=== PATIENT | male | born 1985 ===

== ENCOUNTER 2020-07-22 18:50 | Emergency (ER) | payer MEDICAID, SELFPAY ==
[2020-07-22 18:55] VITALS: BP 194/96; PULSE 93; RESP 18; TEMP 37; O2SAT 98; BMI 38.9
--- NOTE | 2020-07-22 22:12 | ED_ITS ---
HPI - Skin/Abscess/Foreign Bdy General Chief complaint: Skin/Abscess/Foreign Body Stated complaint: abscess Time Seen by Provider: 07/22/20 21:46 Source: patient Mode of arrival: ambulatory Limitations: no limitations History of Present Illness HPI narrative: patient complaining of pain in the right axillary area for last 1 year for last few days getting worse with slight area of redness no fever no pus discharge Related Data Previous Rx's Medication Instructions Recorded doxycycline hyclate 100 mg PO BID #20 cap 07/22/20 Allergies Allergy/AdvReac Type Severity Reaction Status Date / Time SEAFOOD Allergy Severe SWELLING Uncoded 07/03/20 18:46 sea food Allergy Unknown sweling Uncoded 06/17/20 00:00 Review of Systems Review of Systems: REVIEW OF SYSTEMS: Pertinent positives and negatives are stated above in the history. GEN: no fevers, chills, fatigue HEENT: no nasal congestion, sore throat, ear pain NEURO: no headache, dizziness, focal weakness PULM: no cough, shortness of breath CV: no chest pain, palpitations, LE edema ABD: no abdominal pain, nausea, vomiting, diarrhea : no dysuria, urgency, frequency SKIN: as above ROS otherwise negative x 10 PMFSH Past Medical History Medical History Hypertension Social History Social History Alcohol intake: current Alcohol intake frequency: holidays/special occasions only Alcohol type: beer and wine Smoked in Last 30 Days: No Use of substances other than those prescribed or required for medical reasons: No Any prior treatment program specific to substance use: No Advance Directives: No Advance Directives Information Provided: No Physical Exam Vital Signs and I&O and Narrative: Vital Signs and I&O: Vital Signs Temp 98.6 F 07/22/20 18:55 Pulse 93 07/22/20 18:55 Resp 18 07/22/20 18:55 BP 194/96 H 07/22/20 18:55 Pulse Ox 98 07/22/20 18:55 Intake & Output 07/22/20 07/22/20 07/23/20 06:59 18:59 06:59 Weight 99.79 kg Body Mass Index 38.9 Const: General: cooperative Orientation/consciousness: oriented to person, oriented to place and oriented to time Limitations: no limitations Eyes: General: appearance normal, both eyes and all related structures Resp: Effort & Inspection: normal respiratory effort Auscultation: clear to auscultation bilaterally Cardio: Rate: regular rate Rhythm: regular rhythm Heart sounds: S1 normal heart sound present and S2 normal heart sound present GI: Inspection: Yes normal to inspection Palpation (GI): Soft to palpation and nontender Skin: Other: slight induration with erythema of the right axillary area no fluctuant mass palpable no pus discharge Neuro: General: oriented to person, oriented to place and oriented to time Course Course Course Narrative: bedside ultrasound of right axilla was negative for any fluid collection. Will give him a course of doxycycline for hiderinitis suppurativa Discharge Plan Discharge Clinical Impression: Hidradenitis suppurativa of right axilla Patient Disposition: Home, Self-Care Instructions: Hidradenitis Suppurativa (ED) Additional Instructions: take antibiotic as prescribed and follow with primary care doctor, warm compresses as advised bakari antibi?ticos seg?n lo prescrito y seguir con el m?dico de atenci?n primaria, compresas tibias seg?n lo recomendado Prescriptions: New doxycycline hyclate 100 mg capsule 100 mg PO BID Qty: 20 RF: 0 Interventions: ED Discharge Assessment Last Done: 07/22/20 23:09 Discharge Date/Time: 07/22/20 23:12 Print Language: Malawian
[2020-07-22] MEDS: Ibuprofen 600 MG TABLET PO (22:59)
--- NOTE | 2020-07-22 23:04 | PC.NURSE ---
DR. CASANOVA AT BEDSIDE TO PERFORM US TO US AT BEDSIDE TO UNDERARM. STAFF INTERPERATOR TRANSLATING AT BEDSIDE RESULTS TO PT.
== END 2020-07-22 23:12 | disposition home or self-care (01) ==
PROVIDERS: Emergency Provider Internal Medicine; PCP Internal Medicine
DX: L73.2 Hidradenitis suppurativa (principal); M79.621 Pain in right upper arm
CPT/HCPCS: 96374; 99284

== ENCOUNTER 2020-09-15 09:02 | Outpatient (REF) | payer MEDICAID, SELFPAY | END 2020-09-15 09:03 | disposition home or self-care (01) | LOC: HO.LAB 09:02 | PROVIDERS: Visit Provider Internal Medicine | DX: Z20.828 Contact with and (suspected) exposure to other viral communicable diseases (principal) | CPT/HCPCS: C9803; U0003 ==

== ENCOUNTER 2020-09-17 11:12 | Outpatient (REF) | payer MEDICAID, SELFPAY | END 2020-09-17 11:13 | disposition home or self-care (01) | LOC: HO.LAB 11:12 | PROVIDERS: Visit Provider Internal Medicine | DX: Z20.828 Contact with and (suspected) exposure to other viral communicable diseases (principal) | CPT/HCPCS: C9803; U0003 ==

== ENCOUNTER 2021-05-17 02:28 | Emergency (ER) | payer MEDICAID, SELFPAY ==
--- NOTE | ~2021-05-17 | XR_ITS ---
EXAMINATION: XR CHEST CLINICAL INFORMATION: Cough COMPARISON: 08.17.2019 TECHNIQUE: 2 views of the chest were obtained. FINDINGS: Normal symmetric lung volumes. No parenchymal consolidation. No pleural effusion. No pneumothorax. Cardiomediastinal silhouette and pulmonary vascularity are within normal limits. No acute osseous abnormalities. XR/XR chest 2V IMPRESSION: Unremarkable examination.
[2021-05-17 02:31] VITALS: BP 139/85; PULSE 103; RESP 18; TEMP 36.7; O2SAT 95; BMI 44.9
[2021-05-17 02:50] LABS: MANUAL DIFF FLAG NO
[2021-05-17 02:51] LABS: Basophils Percent Auto 0.1 % (0-2); Eosinophils Absolute Auto 0.2 X10*3/uL (0.0-0.4); Eosinophils Percent Auto 2.6 % (0-4); Hematocrit 43.1 % (42-52); Hemoglobin 14.7 g/dl (14.0-18.0); Imm Gran Abs Auto 0.04 X10*3/uL (0.00-0.03); Imm Gran Pct Auto 0.5 % (0.0-0.4); Lymphocytes Absolute Auto 2.4 X10*3/uL (1.2-4.9); Lymphocytes Percent Auto 30.2 % (20-40); Mean Corpuscular HGB Conc 34.1 g/dl (31.0-36.0); Mean Corpuscular Hemoglobin 31.1 pg (27.0-33.0); Mean Corpuscular Volume 91.1 fL (80-98); Mean Platelet Volume 9.9 fL (9.4-12.4); Monocytes Absolute Auto 0.8 X10*3/uL (0.1-1.2); Monocytes Percent Auto 10.1 % (2-11); Neutrophils Absolute Auto 4.4 X10*3/uL (2.0-8.3); Neutrophils Percent Auto 56.5 % (45-73); Platelet Count 164 X10*3/uL (160-400); Red Blood Count 4.73 X10*6/uL (4.60-5.80); Red Cell Distribution Width 13.4 % (11.0-16.0); White Blood Count 7.8 X10*3/uL (4.8-10.8)
[2021-05-17 03:13] LABS: Alanine Aminotransferase 42 U/L (0-40); Albumin Level 4.1 g/dL (3.5-5.0); Alkaline Phosphatase 83 U/L (39-117); Anion Gap 13 (12-20); Aspartate Amino Transferase 25 U/L (5-37); Bilirubin Total 0.4 mg/dL (0.0-1.0); Blood Urea Nitrogen 12 mg/dL (9-16); Calcium 9.1 mg/dL (8.4-10.2); Carbon Dioxide 26 mmol/L (22-29); Chloride 105 mmol/L (96-108); Creatinine Clr Calc Pharmacy 131.8; Estimated Glomerular Filt Rate > 60; Glucose Random 141 mg/dL (60-115); Sodium 141 mmol/L (135-145); Total Protein 7.4 g/dL (6.5-8.0)
[2021-05-17 03:21] LABS: COVID-19 Test Negative (Negative)
--- NOTE | 2021-05-17 03:49 | PC.NURSE ---
at bedside for primary eval.
--- NOTE | 2021-05-17 03:52 | ED.URI ---
HPI - URI/Sore Throat General Chief Complaint: Upper Respiratory Symptoms Stated Complaint: cough Time Seen by Provider: 05/17/21 03:47 Source: patient Mode of arrival: ambulatory Limitations: no limitations History of Present Illness HPI Narrative: Patient comes to emergency room complaining of coughing for the last 3 days. Patient states he has been coughing so much that he sees specks of blood. Patient denies vomiting, no diarrhea, no fever or chills. Related Data Previous Rx's Medication Instructions Recorded doxycycline hyclate 100 mg capsule 100 mg PO BID #20 cap 07/22/20 azithromycin 250 mg tablet 250 mg PO DAILY 4 Days #4 tab 05/17/21 Allergies Allergy/AdvReac Type Severity Reaction Status Date / Time SEAFOOD Allergy Severe SWELLING Uncoded 07/03/20 18:46 sea food Allergy Unknown sweling Uncoded 06/17/20 00:00 Review of Systems Review of Systems: Constitutional : No Weight loss, No Fever, No Chills, No Night Sweats, No Fatigue, No Malaise ENT/Mouth : No Hearing loss, No Ear Pain, No Nasal Congestion, No Sinus Pain, No Hoarseness, No sore throat, No Rhinorrhea, No Swallowing Difficulty Eyes: No Eye Pain, No Swelling, No Redness, No Foreign Body, No Discharge, No Vision Changes Cardiovascular : No Chest Pain, No SOB, No Dyspnea on Exertion, No Orthopnea, No Edema, No Palpitations Respiratory : Dry cough with occasional specks of blood, No Sputum, No Wheezing, No Smoke Exposure, No Dyspnea Gastrointestinal : No Nausea, No Vomiting, No Diarrhea, No Constipation, No abdominal Pain, No Hematochezia, No Melena Genitourinary : no irregular bleeding, No Dysuria, No Urinary Frequency, No Hematuria, No Urinary Incontinence, No Urgency, No Flank Pain, No Urinary Flow Changes, No Hesitancy Musculoskeletal : No joint pain, No Myalgias, No Joint Swelling Skin : No Skin Lesions, No rash Neuro : No Weakness, No Numbness, No Paresthesias, No Loss of Consciousness, No Dizziness, No Headache Psych : No Anxiety/Panic, No Depression, No SI/HI/AH/VH, No Social Issues, Heme/Lymph: No Bruising, No Bleeding,No Lymphadenopathy Endocrine : No Polyuria, No Polydipsia, No Temperature Intolerance [facility] Past Medical History Medical History Hypertension Social History Social History Alcohol intake: current Alcohol intake frequency: holidays/special occasions only Alcohol type: beer and wine Advance Directives: No Advance Directives Information Provided: No Physical Exam Vital Signs: Vital Signs: Last Vital Signs Temp 98.1 F 05/17/21 02:31 Pulse 103 H 05/17/21 02:31 Resp 18 05/17/21 02:31 BP 139/85 05/17/21 02:31 Pulse Ox 95 05/17/21 02:31 Body Mass Index 44.9 Const: Other: Appearance: Alert. Oriented X3. No acute distress. Eyes: Pupils equal, round and reactive to light. ENT: Pharynx normal. Neck: Normal inspection. Neck supple. No lymph nodes noted. No crepitus CVS: Normal heart rate and rhythm. Pulses normal. Normal S1 and S2 Respiratory: No respiratory distress. Breath sounds normal. No Wheezing. No rales Abdomen: Soft and nontender. No rigidity. No distention. good BS x4 Skin: Skin warm and dry. Normal skin color. Normal skin turgor. Extremities: No lower extremity edema. No Lacerations. No Rash Neuro: Oriented X 3. No motor deficit. No sensory deficit. Moving all extermities. No slurred speech. Course Course Course Narrative: I discussed the x-rays and the labs with the patient, patient's potassium is on the lower side, it was repleted with oral potassium in the emergency room. Also, chest x-rays are unremarkable, patient likely having bronchitis. Given that he has being coughing specks of blood, will go ahead and treat him with antibiotic. MDM - URI/Sore Throat Lab Data Result diagrams: 05/17/21 02:43 05/17/21 02:43 Labs: Lab Results 05/17/21 05/17/21 05/17/21 Range/Units 02:43 02:43 02:59 WBC 7.8 (4.8-10.8) X10*3/uL RBC 4.73 (4.60-5.80) X10*6/uL Hgb 14.7 (14.0-18.0) g/dl Hct 43.1 (42-52) % MCV 91.1 (80-98) fL MCH 31.1 (27.0-33.0) pg MCHC 34.1 (31.0-36.0) g/dl RDW 13.4 (11.0-16.0) % Plt Count 164 (160-400) X10*3/uL MPV 9.9 (9.4-12.4) fL Immature Gran % (Auto) 0.5 H (0.0-0.4) % Neut % (Auto) 56.5 (45-73) % Lymph % (Auto) 30.2 (20-40) % Door % (Auto) 10.1 (2-11) % Eos % (Auto) 2.6 (0-4) % Baso % (Auto) 0.1 (0-2) % Lymph # (Auto) 2.4 (1.2-4.9) X10*3/uL Door # (Auto) 0.8 (0.1-1.2) X10*3/uL Eos # (Auto) 0.2 (0.0-0.4) X10*3/uL Baso # (Auto) 0.0 (0.0-0.2) X10*3/uL Abs Immat Gran (auto) 0.04 H (0.00-0.03) X10*3/uL Absolute Neuts (auto) 4.4 (2.0-8.3) X10*3/uL Absolute Nucleated RBC 0.000 (0.0-0.012) X10*3/uL Nucleated RBC % (auto) 0.0 (0.0-0.2) /100WBC Sodium 141 (135-145) mmol/L Potassium 3.0 L (3.3-5.1) mmol/L Chloride 105 (96-108) mmol/L Carbon Dioxide 26 (22-29) mmol/L Anion Gap 13 (12-20) BUN 12 (9-16) mg/dL Creatinine 0.95 (0.5-1.4) mg/dL Estim Creat Clear Calc 131.8 Estimated GFR > 60 Random Glucose 141 H (60-115) mg/dL Calcium 9.1 (8.4-10.2) mg/dL Total Bilirubin 0.4 (0.0-1.0) mg/dL AST 25 (5-37) U/L ALT 42 H (0-40) U/L Alkaline Phosphatase 83 (39-117) U/L Total Protein 7.4 (6.5-8.0) g/dL Albumin 4.1 (3.5-5.0) g/dL COVID-19 (ADRIAN) Negative (Negative) COVID-19 Clin Com See Note Imaging Data Chest x-ray: Radiologist's impression: Normal symmetric lung volumes. No parenchymal consolidation. No pleural effusion. No pneumothorax.? Cardiomediastinal silhouette and pulmonary vascularity are within normal limits. No acute osseous abnormalities. XR/XR chest 2V IMPRESSION: Unremarkable examination. Discharge Plan Discharge Clinical Impression: Bronchitis, Acute hypokalemia Patient Disposition: Home, Self-Care Instructions: Acute Bronchitis (ED) Additional Instructions: Please follow-up with your primary care physician tomorrow. If you have any worsening or new symptoms, please return to the emergency room or call 911 Prescriptions: New azithromycin 250 mg tablet 250 mg PO DAILY 4 Days Qty: 4 RF: 0 No Action doxycycline hyclate 100 mg capsule 100 mg PO BID Qty: 20 RF: 0
--- NOTE | 2021-05-17 03:55 | PC.NURSE ---
Medicated per MAR.
[2021-05-17] MEDS: Azithromycin 500 MG TABLET PO (03:59)
[2021-05-17] MEDS: Potassium Chloride Packet 20 MEQ PACKET 40 MEQ PO (03:59)
== END 2021-05-17 04:07 | disposition home or self-care (01) ==
PROVIDERS: Emergency Provider Emergency Medicine
DX: J40 Bronchitis, not specified as acute or chronic (principal); R05 Cough; E87.6 Hypokalemia; I10 Essential (primary) hypertension; Z20.822 Contact with and (suspected) exposure to COVID-19; Z79.899 Other long term (current) drug therapy
CPT/HCPCS: 36415; 71046; 80053; 85025; 87635; 99283

== ENCOUNTER 2021-06-18 08:47 | Outpatient (REF) | payer OTHER, SELFPAY ==
[2021-06-18 09:05] LABS: MANUAL DIFF FLAG NO
[2021-06-18 09:12] LABS: Basophils Percent Auto 0.2 % (0-2); Eosinophils Absolute Auto 0.2 X10*3/uL (0.0-0.4); Eosinophils Percent Auto 1.6 % (0-4); Hematocrit 42.9 % (42-52); Hemoglobin 14.8 g/dl (14.0-18.0); Imm Gran Abs Auto 0.05 X10*3/uL (0.00-0.03); Imm Gran Pct Auto 0.5 % (0.0-0.4); Lymphocytes Absolute Auto 2.5 X10*3/uL (1.2-4.9); Mean Corpuscular HGB Conc 34.5 g/dl (31.0-36.0); Mean Corpuscular Hemoglobin 31.4 pg (27.0-33.0); Mean Corpuscular Volume 91.1 fL (80-98); Mean Platelet Volume 9.5 fL (9.4-12.4); Monocytes Absolute Auto 0.8 X10*3/uL (0.1-1.2); Neutrophils Absolute Auto 5.9 X10*3/uL (2.0-8.3); Neutrophils Percent Auto 62.7 % (45-73); Platelet Count 179 X10*3/uL (160-400); Red Blood Count 4.71 X10*6/uL (4.60-5.80); Red Cell Distribution Width 13.5 % (11.0-16.0); White Blood Count 9.4 X10*3/uL (4.8-10.8)
[2021-06-18 09:56] LABS: Alanine Aminotransferase 41 U/L (0-40); Alkaline Phosphatase 83 U/L (39-117); Anion Gap 9 (12-20); Aspartate Amino Transferase 22 U/L (5-37); Calcium 9.3 mg/dL (8.4-10.2); Carbon Dioxide 29 mmol/L (22-29); Chloride 106 mmol/L (96-108); Cholesterol 192 mg/dL; Estimated Glomerular Filt Rate > 60; Glucose Fasting 121 mg/dL (60-99); HDL Cholesterol 27 mg/dL; LDL Cholesterol Calculated 128 mg/dl; Potassium 3.3 mmol/L (3.3-5.1); Sodium 141 mmol/L (135-145); Total Protein 7.2 g/dL (6.5-8.0); Triglycerides 188 mg/dL
[2021-06-18 10:04] LABS: Thyroid Stimulating Hormone 1.48 uIU/mL (0.32-4.0)
[2021-06-18 10:23] LABS: Blood Urea Nitrogen 7 mg/dL (9-16)
== END 2021-06-18 08:48 | disposition home or self-care (01) ==
LOC: HO.LAB 08:47
PROVIDERS: PCP Internal Medicine; Visit Provider Internal Medicine
DX: D64.9 Anemia, unspecified (principal); E66.9 Obesity, unspecified; E78.5 Hyperlipidemia, unspecified
CPT/HCPCS: 36415; 80053; 80061; 84443; 85025

== ENCOUNTER 2021-07-26 03:32 | Emergency (ER) | payer OTHER, SELFPAY ==
[2021-07-26 03:34] VITALS: BP 160/102; PULSE 75; RESP 16; TEMP 36.6; O2SAT 95; BMI 46.0
--- NOTE | 2021-07-26 03:50 | ED_ITS ---
HPI - Extremity Injury (Lower) General Chief Complaint: Extremity Injury, Lower Stated Complaint: side pain Time Seen by Provider: 07/26/21 03:45 Source: patient Mode of arrival: ambulatory Limitations: no limitations History of Present Illness HPI Narrative: Patient comes emergency room complaining of right-sided hip pain that has been there for 5-6 days. Patient states the pain is very mild, denies fever or chills. Denies any injuries. Related Data Previous Rx's Medication Instructions Recorded ibuprofen 600 mg tablet 600 mg PO Q6H PRN #14 tab 07/26/21 Allergies Allergy/AdvReac Type Severity Reaction Status Date / Time seafood Allergy Intermediate Rash Verified 07/26/21 03:34 Review of Systems Review of Systems: Constitutional : No Weight loss, No Fever, No Chills, No Night Sweats, No Fatigue, No Malaise ENT/Mouth : No Hearing loss, No Ear Pain, No Nasal Congestion, No Sinus Pain, No Hoarseness, No sore throat, No Rhinorrhea, No Swallowing Difficulty Eyes: No Eye Pain, No Swelling, No Redness, No Foreign Body, No Discharge, No Vision Changes Cardiovascular : No Chest Pain, No SOB, No Dyspnea on Exertion, No Orthopnea, No Edema, No Palpitations Respiratory : No Cough, No Sputum, No Wheezing, No Smoke Exposure, No Dyspnea Gastrointestinal : No Nausea, No Vomiting, No Diarrhea, No Constipation, No abdominal Pain, No Hematochezia, No Melena Genitourinary : no irregular bleeding, No Dysuria, No Urinary Frequency, No Hematuria, No Urinary Incontinence, No Urgency, No Flank Pain, No Urinary Flow Changes, No Hesitancy Musculoskeletal : Mild right hip pain, No Myalgias, No Joint Swelling Skin : No Skin Lesions, No rash Neuro : No Weakness, No Numbness, No Paresthesias, No Loss of Consciousness, No Dizziness, No Headache Psych : No Anxiety/Panic, No Depression, No SI/HI/AH/VH, No Social Issues, Heme/Lymph: No Bruising, No Bleeding,No Lymphadenopathy Endocrine : No Polyuria, No Polydipsia, No Temperature Intolerance [facility] Past Medical History Medical History Hypertension Impaired glucose tolerance Mixed hyperlipidemia Obesity (BMI 35.0-39.9 without comorbidity) Social History Social History Alcohol intake: current Alcohol intake frequency: holidays/special occasions only Alcohol type: beer and wine Patient Tobacco Use Status: Never used Tobacco e-Cigarette/Vaping Use: Never Used Second Hand Smoke Exposure: No Advance Directives: No Advance Directives Information Provided: Yes Physical Exam Vital Signs: Vital Signs: Last Vital Signs Temp 97.9 F 07/26/21 03:34 Pulse 75 07/26/21 03:34 Resp 16 07/26/21 03:34 BP 160/102 H 07/26/21 03:34 Pulse Ox 95 07/26/21 03:34 Body Mass Index 46.0 Const: Other: Appearance: Alert. Oriented X3. No acute distress. Eyes: Pupils equal, round and reactive to light. ENT: Pharynx normal. Neck: Normal inspection. Neck supple. No lymph nodes noted. No crepitus CVS: Normal heart rate and rhythm. Pulses normal. Normal S1 and S2 Respiratory: No respiratory distress. Breath sounds normal. No Wheezing. No rales Abdomen: Soft and nontender. No rigidity. No distention. No palpable inguinal hernia Skin: Skin warm and dry. Normal skin color. Normal skin turgor. Extremities: No lower extremity edema. Patient is able to flex and extend the hip with normal range of motion and no pain, the hip has normal appearance, normal range of motion, no erythema, no additional warmth, no femoral hernia, no pain over the IT band Neuro: Oriented X 3. No motor deficit. No sensory deficit. Moving all extermities. No slurred speech. Course Course Course Narrative: Patient's physical exam is relatively normal. Patient reports mild discomfort when bearing weight on his right hip. Septic joint is not suspected. Patient likely has mild bursitis. Patient has not had any medication yet for pain. Discharge Plan Discharge Clinical Impression: Bursitis of hip, right Qualifiers: Hip bursitis location: unspecified Qualified Code(s): M70.71 - Other bursitis of hip, right hip Patient Disposition: Home, Self-Care Instructions: Hip Bursitis (ED) Additional Instructions: Please follow-up with your primary care physician tomorrow. If you have any worsening or new symptoms, please return to the emergency room or call 911 Prescriptions: New ibuprofen 600 mg tablet 600 mg PO Q6H PRN (Reason: pain) Qty: 14 RF: 0
[2021-07-26] MEDS: Ibuprofen 600 MG TABLET PO (03:57)
== END 2021-07-26 04:02 | disposition home or self-care (01) ==
PROVIDERS: Emergency Provider Emergency Medicine; PCP Internal Medicine
DX: M70.71 Other bursitis of hip, right hip (principal); I10 Essential (primary) hypertension
CPT/HCPCS: 99283

== ENCOUNTER 2021-08-16 18:17 | Emergency (ER) | payer OTHER, SELFPAY ==
--- NOTE | ~2021-08-16 | XR_ITS ---
EXAMINATION: XR CHEST CLINICAL INFORMATION: Shortness of breath. COMPARISON: Chest radiograph dated 05/17/2021. TECHNIQUE: Frontal view of the chest was obtained. FINDINGS: The lungs are clear. The cardiomediastinal silhouette is normal in size. There is no pleural effusion or pneumothorax. No acute osseous abnormality. XR/XR chest 1V IMPRESSION: No acute cardiopulmonary findings.
[2021-08-16 18:34] VITALS: BP 157/96; PULSE 90; RESP 18; TEMP 36.7; O2SAT 99; BMI 46.0
== END 2021-08-16 21:45 | disposition left against medical advice (07) ==
LOC: HO.ED 21:36
PROVIDERS: Emergency Provider Emergency Medicine; PCP Internal Medicine
DX: R51.9 Headache, unspecified (principal); R07.9 Chest pain, unspecified; E66.9 Obesity, unspecified; I10 Essential (primary) hypertension; R78.2 Finding of cocaine in blood; G47.33 Obstructive sleep apnea (adult) (pediatric)
CPT/HCPCS: 71045; 99281; 99282; 99283

== ENCOUNTER 2021-08-31 11:42 | Emergency (ER) | payer OTHER, SELFPAY ==
--- NOTE | ~2021-08-31 | XR_ITS ---
EXAMINATION: XR FOOT, LEFT CLINICAL INFORMATION: Left great toe injury COMPARISON: None TECHNIQUE: AP, lateral, and oblique views of the left foot. FINDINGS: The bones and soft tissues are normal. No fracture. Alignment is anatomic. Joint spaces are maintained. XR/XR foot LT 2V IMPRESSION: Normal left foot.
[2021-08-31 12:14] VITALS: BP 180/99; PULSE 90; RESP 18; TEMP 36.8; O2SAT 94; BMI 40.7
--- NOTE | 2021-08-31 14:10 | ED.LOWEXIN ---
HPI - Extremity Injury (Lower) General Chief Complaint: Extremity Injury, Lower Stated Complaint: lt foot pain, fall Time Seen by Provider: 08/31/21 12:47 Source: patient Mode of arrival: ambulatory History of Present Illness HPI Narrative: 36-year-old male with a PMHx HTN, HLD, KUNAL, obesity, presenting to the ED complaining of left great toe pain/injury s/p mechanical trip and fall down 3 flights of stairs last night. Denies head trauma, LOC, injury to the area. Denies symptoms prior to fall. Denies numbness, tingling, weakness, headache, CP/SOB complaint: foot injury and fall Related Data Previous Rx's Medication Instructions Recorded ibuprofen 600 mg tablet 600 mg PO Q6H PRN #14 tab 07/26/21 lisinopril 10 mg tablet 10 mg PO DAILY 90 Days #90 tab 07/29/21 bacitracin 500 unit/gram topical 1 appl TOPICAL BID #30 g 08/31/21 ointment Allergies Allergy/AdvReac Type Severity Reaction Status Date / Time seafood Allergy Intermediate Rash Verified 08/31/21 12:14 Review of Systems Review of Systems: Constitutional: No Fever, No Chills ENT/Mouth: No Ear Pain, No Nasal Congestion, No sore throat Cardiovascular: No Chest Pain, No SOB Respiratory: No Cough, No Sputum, No Wheezing Gastrointestinal: No Nausea, No Vomiting, No Diarrhea, No Constipation, No Abdominal pain Genitourinary:, No Dysuria, No Urinary Incontinence, No Urgency, No Flank Pain Musculoskeletal: + joint pain, No Myalgias, No Joint Swelling Skin: + Skin Lesions, No rash Neuro: No Weakness, No Numbness, No Paresthesias, No HOOK, No LOC Yes all other systems are reviewed and are negative [facility] Past Medical History Attestation statement: The following information was validated with the patient. Medical History (Updated 08/31/21 @ 14:12 by FIDE Flores) Class 2 obesity with body mass index (BMI) of 39.0 to 39.9 in adult Hypertension Impaired glucose tolerance Mixed hyperlipidemia Obesity (BMI 35.0-39.9 without comorbidity) KUNAL (obstructive sleep apnea) Family History Family History Father Essential hypertension Mother No problems noted. Social History Social History Housing: Apartment Alcohol intake: current Alcohol intake frequency: holidays/special occasions only Alcohol type: beer and wine Patient Tobacco Use Status: Never used Tobacco e-Cigarette/Vaping Use: Never Used Second Hand Smoke Exposure: No Advance Directives: No Advance Directives Information Provided: No service: No Current occupational status: employed Current occupational exposures/hazards: No Physical Exam Vital Signs: Vital Signs: Last Vital Signs Temp 98.3 F 08/31/21 12:14 Pulse 90 08/31/21 12:14 Resp 18 08/31/21 12:14 BP 180/99 H 08/31/21 12:14 Pulse Ox 94 08/31/21 12:14 Body Mass Index 40.7 Const: General: cooperative, healthy appearing, no acute distress, well developed, alert, awake and Physically active Orientation/consciousness: patient oriented x3 Limitations: no limitations HENMT: Head: Yes normal to inspection, Yes normocephalic and Yes atraumatic Ears: hearing grossly normal bilaterally General nose exam: Normal external nose present Face and sinus: Yes normal facial exam Eyes: General: appearance normal, both eyes and all related structures EOM: EOMs intact bilaterally Neck: Neck: Yes normal visual inspection and Yes no meningeal signs Resp: Effort & Inspection: normal respiratory effort and no respiratory distress Auscultation: clear to auscultation bilaterally Cardio: Rate: regular rate Heart sounds: S1 normal heart sound present and S2 normal heart sound present Peripheral pulses: dorsalis pedis present Skin: Rashes: no rashes Wounds: no wounds Neuro: General: patient oriented x3 and no meningeal signs Gait exam (Neuro): Normal gait present Extrem: Other: Left great toe with mild tenderness to medial aspect. Popped callus/blister to plantar aspect of the great toe that is tender to palpation. No surrounding cellulitis, no fluctuance/induration, no drainage. Neurovascular intact. Sensation intact to light touch. Course Course Course Narrative: XR foot LT 2V IMPRESSION: Normal left foot. Results discussed. Patient is to follow-up with PCP as needed MDM - Extremity Injury (Lower) MDM Narrative Medical decision making narrative: 36-year-old male with a PMHx HTN, HLD, KUNAL, obesity, presenting to the ED complaining of left great toe pain/injury s/p mechanical trip and fall down 3 flights of stairs last night. On exam vital signs stable, NAD/nontoxic, physical exam as above, left great toe with mild tenderness and popped callus noted plantar aspect. No evidence of infection. Rule out fracture. Plan: X-rays Medical Records Attestation: I reviewed the patient's medical records. Lab Data Attestation: I reviewed the patient's lab results. Discharge Plan Discharge Clinical Impression: Blister Great toe pain Qualifiers: Laterality: left Qualified Code(s): M79.675 - Pain in left toe(s) Patient Disposition: Home, Self-Care Instructions: Arthralgia (ED) Additional Instructions: Your x-ray was unremarkable. Ice and elevate her foot Take Tylenol and ibuprofen Apply bacitracin to your popped blister If area begins look infected please return to the ED Please follow-up with her doctor Lopez radiograf?a no tuvo nada especial. Hielo y eleva lopez pie Tubac Tylenol e ibuprofeno Aplique bacitracina a lopez ampolla reventada Si el ?lorraine comienza a verse infectada, regrese al servicio de urgencias. Por favor, stacia un seguimiento con lopez m?dico. Prescriptions: New bacitracin 500 unit/gram ointment 1 appl topical BID Qty: 30 RF: 0 No Action ibuprofen 600 mg tablet 600 mg PO Q6H PRN (Reason: pain) Qty: 14 RF: 0 lisinopril 10 mg tablet 10 mg PO DAILY 90 Days Qty: 90 RF: 0 Referrals: Jazzmine Alvarado MD [Primary Care Provider] - 5 days Print Language: Macedonian
== END 2021-08-31 15:07 | disposition home or self-care (01) ==
PROVIDERS: Emergency Provider Emergency Medicine; PCP Internal Medicine
DX: M79.675 Pain in left toe(s) (principal); S90.822A Blister (nonthermal), left foot, initial encounter; W10.9XXA Fall (on) (from) unspecified stairs and steps, initial encounter; Y93.9 Activity, unspecified; Y92.9 Unspecified place or not applicable; Y99.9 Unspecified external cause status
CPT/HCPCS: 73620; 99283

== ENCOUNTER 2021-11-24 17:35 | Emergency (ER) | payer OTHER, SELFPAY ==
[2021-11-24 17:41] VITALS: BP 168/109; PULSE 78; RESP 19; TEMP 36.8; O2SAT 96; BMI 46.0
== END 2021-11-24 21:24 | disposition left against medical advice (07) ==
LOC: HO.ED 21:24
PROVIDERS: Emergency Provider Emergency Medicine
DX: R51.9 Headache, unspecified (principal); R42 Dizziness and giddiness; H53.8 Other visual disturbances
CPT/HCPCS: 99281; 99282

== ENCOUNTER 2021-11-25 14:22 | Emergency (ER) | payer OTHER, SELFPAY ==
--- NOTE | ~2021-11-25 | XR_ITS ---
EXAMINATION: XR CHEST CLINICAL INFORMATION: Hypertension COMPARISON: August 16, 2021 TECHNIQUE: AP portable view of the chest was obtained. FINDINGS: No significant abnormality is noted involving the heart, lungs, mediastinum, bony thorax or soft tissues. XR/XR chest 1V IMPRESSION: No acute disease.
--- NOTE | ~2021-11-25 | CT_ITS ---
EXAMINATION: CT HEAD WITHOUT CONTRAST CLINICAL INFORMATION: Headache. Hypertension. COMPARISON: None TECHNIQUE: Contiguous axial imaging was performed from the skull base to vertex without intravenous administration of contrast. This CT examination was performed using dose optimization techniques as appropriate, variously including the following: *Automated exposure control *Adjustment of mA and/or kV according to patient size (this includes techniques or standardized protocols for targeted exams where dose is matched to indication/reason for exam; i.e. extremities or head) *Use of iterative reconstruction technique DLP: 801 mGy-cm FINDINGS: There is no evidence of acute intracranial hemorrhage or territorial infarction. No abnormal mass effect or midline shift is seen. Denise to white matter differentiation is well preserved. No extra-axial fluid collections are identified. The ventricles are normal in size. There is no abnormal attenuation within the brain parenchyma. The osseous structures and soft tissues are normal. The mastoid air cells and visualized portions of the paranasal sinuses are well aerated. CT/CT head/brain wo con IMPRESSION: No acute intracranial pathology.
[2021-11-25 14:28] VITALS: BP 146/90; PULSE 88; O2SAT 98
[2021-11-25 14:49] VITALS: BP 148/111; PULSE 89; RESP 19; TEMP 36.6; O2SAT 98; BMI 47.8
[2021-11-25 15:15] VITALS: BP 101/56; PULSE 80; O2SAT 97
--- NOTE | 2021-11-25 16:07 | ECG_ITS ---
Test Reason : DIZZINESS Blood Pressure : / mmHG Vent. Rate : 075 BPM Atrial Rate : 075 BPM P-R Int : 172 ms QRS Dur : 082 ms QT Int : 366 ms P-R-T Axes : 036 050 023 degrees QTc Int : 408 ms Normal sinus rhythm Normal ECG When compared with ECG of 17-AUG-2019 21:12, Minimal criteria for Anterior infarct are no longer Present Referred By: Robb Acosta Electronically Signed By:Kvng Amezcua
--- NOTE | 2021-11-25 16:09 | ED.GENADULT ---
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 Patient presented with headache and dizziness started 4 weeks ago, patient is known to be hypertensive is taking lisinopril 20 mg daily, patient has been having headache and dizziness for the past 4 weeks patient described as intermittent, no aggravating factor, no relieving factor, no associated symptoms in particular no photophobia, no neck stiffness, no fever, no chills, no nausea, no vomiting. Patient came to the emergency department yesterday for evaluation because was very busy patient walked out before being seen in the ED, patient went to see his PCP today found to have a high blood pressure and patient was sent for further evaluation. Patient declined chest pain or shortness of breath, no abdominal pain. Patient declined family history of cerebral aneurysm, cerebral bleeds, or strokes. Related Data Previous Rx's Medication Instructions Recorded lisinopril 20 mg tablet 20 mg PO DAILY 90 Days #90 tab 11/04/21 amlodipine 5 mg tablet 5 mg PO DAILY #20 tab 11/25/21 Allergies Allergy/AdvReac Type Severity Reaction Status Date / Time seafood Allergy Intermediate Rash Verified 11/25/21 13:19 Review of Systems Review of Systems: All other systems are reviewed and are negative Constitutional: Reports as per HPI and Reports no additional constitutional complaints Eyes: Reports as per HPI and Reports no additional eye complaints Reports system reviewed and no additional complaints, except as documented Cardiovascular: Reports as per HPI and Reports no additional cardiovascular complaints Respiratory: Reports as per HPI and Reports no additional respiratory complaints Gastrointestinal: Reports as per HPI and Reports no additional gastrointestinal complaints Genitourinary: Reports no additional female genitourinary complaints Musculoskeletal: Reports no additional musculoskeletal complaints Skin/Breast: Reports system reviewed and no additional complaints, except as docu Psychiatric: Reports no additional psychiatric complaints Endocrine: Reports no additional endocrine complaints Hematologic/Lymphatic: Reports no additional hematologic/lymphatic complaints Allergic/Immunologic: Reports no additional allergic/immunologic complaints Reports system reviewed and no additional complaints, except as documented and Reports Abnormal speech present [facility] Past Medical History Medical History Class 2 obesity with body mass index (BMI) of 39.0 to 39.9 in adult Hypertension Impaired glucose tolerance Mixed hyperlipidemia Obesity (BMI 35.0-39.9 without comorbidity) KUNAL (obstructive sleep apnea) Surgical History No pertinent past surgical history Family History Family History Father Essential hypertension Mother No problems noted. Social History Social History Housing: Apartment Alcohol intake: current Alcohol intake frequency: holidays/special occasions only Alcohol type: beer and wine Patient Tobacco Use Status: Never used Tobacco e-Cigarette/Vaping Use: Never Used Second Hand Smoke Exposure: No Advance Directives: No Advance Directives Information Provided: No service: No Current occupational status: employed Current occupational exposures/hazards: No Physical Exam Vital Signs: Vital Signs: Last Vital Signs Temp 98.4 F 11/25/21 16:15 Pulse 83 11/25/21 16:15 Resp 16 11/25/21 16:15 BP 147/95 H 11/25/21 16:15 Pulse Ox 97 11/25/21 16:15 BMI result Body Mass Index 47.8 Vital signs have been reviewed as appeared to be correct. Blood pressure elevated. Heart rate normal. Respiration rate normal. Temperature normal. Oxygen saturation normal. Appearance: Alert. Oriented X3. No acute distress. Head: Normal external exam. Normocephalic. Atraumatic. No [place] signs noted. No raccoon eyes noted Eyes: PERRLA. EOMI. Conjunctiva and sclera normal. Eyelids normal. ENT: TM's Normal. Pharynx normal. Uvula midline. Moist mucous membranes. No trismus noted. No drooling noted. No muffled voice noted. Neck: Normal inspection. Neck supple. FROM. No adenopathy. Thyroid Normal. No meningeal signs. No neck mass noted. CVS: Normal heart rate and rhythm. Heart sound normal. No murmurs noted. Pulses normal throughout. Respiratory: No respiratory distress. Painless inspiration. Breath sounds normal. No wheezes/rales/rhonchi noted. Chest nontender. No accessory muscle usage noted or decreased air movement noted. Abdomen: Soft and nontender. Bowel sounds normal in all 4 quadrants. No distention noted. No organomegaly noted. No visible injury noted. Back: No CVA tenderness. Full range of motion noted. Skin: Skin warm and dry. Normal skin color. Normal skin turgor. No rashes/lesions/lacerations noted. Extremities: No lower extremity edema. Extremities exhibit normal range of motion. Extremities nontender. Neuro: Oriented X 3. Cranial nerve exam: II-XII are grossly intact No motor deficit. No sensory deficit. Reflexes normal. Course Course Course Narrative: Assessment and plan. 36-year-old male with history of essential hypertension taking lisinopril 20 mg daily, patient been complaining of headache and dizziness for the past 4 weeks, patient was sent from PCP for having a high blood pressure. blood pressure was better controlled with 5 mg of p.o. amlodipine given orally in the ED. Headache and dizziness have partially improved with improvement of the blood pressure. Patient has a normal neuro exam, unremarkable head CT. Will place the patient on amlodipine 5 mg daily and discontinue lisinopril and patient was instructed to follow up with his PCP. Medical Decision Making Lab Data Lab results reviewed: Yes I reviewed the patient's lab results. Result diagrams: 11/25/21 17:04 11/25/21 17:04 Labs: Lab Results 11/25/21 11/25/21 11/25/21 Range/Units 17:04 17:04 17:04 WBC 8.4 (4.8-10.8) X10*3/uL RBC 4.66 (4.60-5.80) X10*6/uL Hgb 14.4 (14.0-18.0) g/dl Hct 43.0 (42.0-52.0) % MCV 92.3 (80.0-98.0) fL MCH 30.9 (27.0-33.0) pg MCHC 33.5 (31.0-36.0) g/dl RDW 13.4 (11.0-16.0) % Plt Count 172 (160-400) X10*3/uL MPV 10.0 (9.4-12.4) fL Immature Gran % (Auto) 0.6 H (0.0-0.4) % Neut % (Auto) 55.2 (45-73) % Lymph % (Auto) 35.1 (20-40) % [place] % (Auto) 7.1 (2-11) % Eos % (Auto) 1.8 (0-4) % Baso % (Auto) 0.2 (0-2) % Lymph # (Auto) 3.0 (1.2-4.9) X10*3/uL [place] # (Auto) 0.6 (0.1-1.2) X10*3/uL Eos # (Auto) 0.2 (0.0-0.4) X10*3/uL Baso # (Auto) 0.0 (0.0-0.2) X10*3/uL Abs Immat Gran (auto) 0.05 H (0.00-0.03) X10*3/uL Absolute Neuts (auto) 4.7 (2.0-8.3) x10*3/uL Absolute Nucleated RBC 0.000 (0.0-0.012) X10*3/uL Nucleated RBC % (auto) 0.0 (0.0-0.2) /100WBC Sodium 139 (135-145) mmol/L Potassium 3.5 (3.3-5.1) mmol/L Chloride 103 (96-108) mmol/L Carbon Dioxide 30 H (22-29) mmol/L Anion Gap 10 L (12-20) BUN 9 (9-16) mg/dL Creatinine 0.84 (0.5-1.4) mg/dL Estim Creat Clear Calc 144.3 Estimated GFR > 60 Random Glucose 141 H (60-115) mg/dL Calcium 9.3 (8.4-10.2) mg/dL Total Bilirubin 0.6 (0.0-1.0) mg/dL Direct Bilirubin 0.2 (0.0-0.5) mg/dL AST 27 (5-37) U/L ALT 57 H (0-40) U/L Alkaline Phosphatase 79 (39-117) U/L Troponin I High Sens 4.2 (<3.5-35.0) ng/L B-Natriuretic Peptide (<100) pg/mL Total Protein 7.1 (6.5-8.0) g/dL Albumin 3.9 (3.5-5.0) g/dL Lipase 27 (8-78) U/L 11/25/21 Range/Units 17:04 WBC (4.8-10.8) X10*3/uL RBC (4.60-5.80) X10*6/uL Hgb (14.0-18.0) g/dl Hct (42.0-52.0) % MCV (80.0-98.0) fL MCH (27.0-33.0) pg MCHC (31.0-36.0) g/dl RDW (11.0-16.0) % Plt Count (160-400) X10*3/uL MPV (9.4-12.4) fL Immature Gran % (Auto) (0.0-0.4) % Neut % (Auto) (45-73) % Lymph % (Auto) (20-40) % [place] % (Auto) (2-11) % Eos % (Auto) (0-4) % Baso % (Auto) (0-2) % Lymph # (Auto) (1.2-4.9) X10*3/uL [place] # (Auto) (0.1-1.2) X10*3/uL Eos # (Auto) (0.0-0.4) X10*3/uL Baso # (Auto) (0.0-0.2) X10*3/uL Abs Immat Gran (auto) (0.00-0.03) X10*3/uL Absolute Neuts (auto) (2.0-8.3) x10*3/uL Absolute Nucleated RBC (0.0-0.012) X10*3/uL Nucleated RBC % (auto) (0.0-0.2) /100WBC Sodium (135-145) mmol/L Potassium (3.3-5.1) mmol/L Chloride (96-108) mmol/L Carbon Dioxide (22-29) mmol/L Anion Gap (12-20) BUN (9-16) mg/dL Creatinine (0.5-1.4) mg/dL Estim Creat Clear Calc Estimated GFR Random Glucose (60-115) mg/dL Calcium (8.4-10.2) mg/dL Total Bilirubin (0.0-1.0) mg/dL Direct Bilirubin (0.0-0.5) mg/dL AST (5-37) U/L ALT (0-40) U/L Alkaline Phosphatase (39-117) U/L Troponin I High Sens (<3.5-35.0) ng/L B-Natriuretic Peptide < 10 (<100) pg/mL Total Protein (6.5-8.0) g/dL Albumin (3.5-5.0) g/dL Lipase (8-78) U/L Imaging Data Chest x-ray: Attestation: I personally reviewed and interpreted this imaging study as follows: Radiologist's impression: No acute disease CT scan - head: Attestation: I personally reviewed and interpreted this imaging study as follows: Radiologist's impression: No acute intracranial pathology. ECG Data Attestation: I personally reviewed and interpreted this ECG as follows: Interpretation: Normal sinus rhythm at 75 beats per minutes, normal axis deviation, normal intervals. Discharge Plan Discharge Clinical Impression: Hypertension, Headache Patient Disposition: Home, Self-Care Instructions: Hypertension (ED) Prescriptions: New amlodipine 5 mg tablet 5 mg PO DAILY Qty: 20 0RF No Action lisinopril 20 mg tablet 20 mg PO DAILY 90 Days Qty: 90 1RF Referrals: Physician,Unknown J [Primary Care Provider] - 2 days
[2021-11-25 16:15] VITALS: BP 147/95; PULSE 83; RESP 16; TEMP 36.9; O2SAT 97
[2021-11-25] MEDS: amLODIPine Besylate 5 MG TABLET PO (16:40)
[2021-11-25 17:11] LABS: MANUAL DIFF FLAG NO
[2021-11-25 17:14] LABS: Basophils Percent Auto 0.2 % (0-2); Eosinophils Absolute Auto 0.2 X10*3/uL (0.0-0.4); Eosinophils Percent Auto 1.8 % (0-4); Hemoglobin 14.4 g/dl (14.0-18.0); Imm Gran Abs Auto 0.05 X10*3/uL (0.00-0.03); Imm Gran Pct Auto 0.6 % (0.0-0.4); Lymphocytes Percent Auto 35.1 % (20-40); Mean Corpuscular HGB Conc 33.5 g/dl (31.0-36.0); Mean Corpuscular Hemoglobin 30.9 pg (27.0-33.0); Mean Corpuscular Volume 92.3 fL (80.0-98.0); Monocytes Absolute Auto 0.6 X10*3/uL (0.1-1.2); Monocytes Percent Auto 7.1 % (2-11); Neutrophils Absolute Auto 4.7 x10*3/uL (2.0-8.3); Neutrophils Percent Auto 55.2 % (45-73); Platelet Count 172 X10*3/uL (160-400); Red Blood Count 4.66 X10*6/uL (4.60-5.80); Red Cell Distribution Width 13.4 % (11.0-16.0); White Blood Count 8.4 X10*3/uL (4.8-10.8)
[2021-11-25 17:34] LABS: Alanine Aminotransferase 57 U/L (0-40); Albumin Level 3.9 g/dL (3.5-5.0); Alkaline Phosphatase 79 U/L (39-117); Anion Gap 10 (12-20); Aspartate Amino Transferase 27 U/L (5-37); B Type Natriuretic Peptide < 10 pg/mL (<100); Bilirubin Direct 0.2 mg/dL (0.0-0.5); Bilirubin Total 0.6 mg/dL (0.0-1.0); Blood Urea Nitrogen 9 mg/dL (9-16); Calcium 9.3 mg/dL (8.4-10.2); Carbon Dioxide 30 mmol/L (22-29); Chloride 103 mmol/L (96-108); Creatinine Clr Calc Pharmacy 144.3; Estimated Glomerular Filt Rate > 60; Glucose Random 141 mg/dL (60-115); Lipase 27 U/L (8-78); Potassium 3.5 mmol/L (3.3-5.1); Sodium 139 mmol/L (135-145); Total Protein 7.1 g/dL (6.5-8.0)
[2021-11-25 17:35] LABS: Troponin-I High Sensitivity 4.2 ng/L (<3.5-35.0)
== END 2021-11-25 18:14 | disposition home or self-care (01) ==
PROVIDERS: Emergency Provider Emergency Medicine
DX: I10 Essential (primary) hypertension (principal); R51.9 Headache, unspecified
CPT/HCPCS: 36415; 70450; 71045; 80048; 80076; 83690; 83880; 84484; 85025; 93005; 99284

== ENCOUNTER 2021-12-17 07:30 | Outpatient (REF) | payer OTHER, SELFPAY ==
[2021-12-17 09:07] LABS: Alanine Aminotransferase 55 U/L (0-40); Albumin Level 3.9 g/dL (3.5-5.0); Alkaline Phosphatase 81 U/L (39-117); Anion Gap 11 (12-20); Aspartate Amino Transferase 30 U/L (5-37); Bilirubin Total 0.8 mg/dL (0.0-1.0); Blood Urea Nitrogen 10 mg/dL (9-16); Calcium 9.4 mg/dL (8.4-10.2); Carbon Dioxide 29 mmol/L (22-29); Chloride 104 mmol/L (96-108); Cholesterol 180 mg/dL; Estimated Glomerular Filt Rate > 60; Glucose Fasting 153 mg/dL (60-99); HDL Cholesterol 25 mg/dL; LDL Cholesterol Calculated 111 mg/dl; Potassium 3.8 mmol/L (3.3-5.1); Sodium 140 mmol/L (135-145); Total Protein 7.2 g/dL (6.5-8.0); Triglycerides 222 mg/dL
== END 2021-12-17 07:31 | disposition home or self-care (01) ==
LOC: HO.LAB 07:30
PROVIDERS: Absent Provider Internal Medicine; PCP Internal Medicine; Visit Provider Nurse Practitioner Family
DX: I10 Essential (primary) hypertension (principal)
CPT/HCPCS: 36415; 80053; 80061

== ENCOUNTER 2022-01-20 09:38 | Outpatient (REF) | payer OTHER, SELFPAY ==
--- NOTE | ~2022-01-20 | XR_ITS ---
EXAMINATION: XR CHEST CLINICAL INFORMATION: Bronchitis, not specified as acute or chronic. COMPARISON: Chest done on 11/25/2021. TECHNIQUE: 2 views of the chest were obtained. FINDINGS: Low lung volume is present. Both lungs are clear. The cardiac mediastinal silhouette is within normal limit. No evidence of any pleural effusion or pneumothorax. When compared to prior study, no significant changes present. XR/XR chest 2V IMPRESSION: No radiographic evidence of any acute cardiopulmonary disease, appear similar to prior study dated 12/05/2021.
== END 2022-01-20 09:39 | disposition home or self-care (01) ==
LOC: HO.XRAY 09:38
PROVIDERS: PCP Internal Medicine; Visit Provider Internal Medicine
DX: J40 Bronchitis, not specified as acute or chronic (principal)
CPT/HCPCS: 71046

== ENCOUNTER 2022-03-15 17:37 | Emergency (ER) | payer OTHER, SELFPAY ==
[2022-03-15 17:43] VITALS: BP 175/121; PULSE 115; RESP 20; TEMP 36.9; O2SAT 97; BMI 47.8
[2022-03-15 17:47] VITALS: BP 167/100
--- NOTE | 2022-03-15 17:48 | ECG_ITS ---
Test Reason : CHEST TIGHTNESS Blood Pressure : / mmHG Vent. Rate : 107 BPM Atrial Rate : 107 BPM P-R Int : 176 ms QRS Dur : 084 ms QT Int : 330 ms P-R-T Axes : 041 039 025 degrees QTc Int : 440 ms Sinus tachycardia Cannot rule out Anterior infarct , age undetermined Abnormal ECG When compared with ECG of 25-NOV-2021 16:42, No significant change was found Referred By: Generic ED Physician Electronically Signed By:CLEMENCIA DOYLE MD
[2022-03-15 18:19] LABS: Glucose, Whole Blood 283 mg/dL (60-115)
--- NOTE | 2022-03-15 18:21 | ED.GENADULT ---
HPI - General Adult General Chief complaint: General Medical Stated complaint: high blood sugar/fatigue Time Seen by Provider: 03/15/22 18:07 History of Present Illness HPI narrative: Patient is a 37-year-old male present today with having sugar being high. Feels generally weak. Patient not compliant with his medication of metformin. Has a history of sleep apnea has a history of hypertension. Never had a heart attack never had a stroke no fever no chills no coughing or congestion or upper respiratory symptoms patient immunized for COVID. Positive generalized malaise. He has been testing his own sugar at home it has been in the 300 range patient came in for further evaluation. No diaphoresis no leg swelling. Patient from home. Related Data Previous Rx's Medication Instructions Recorded blood pressure monitor #1 ea 12/02/21 amlodipine 5 mg tablet 5 mg PO DAILY 90 Days #90 tab 12/21/21 azithromycin 250 mg tablet 250 mg PO DIRECTED 5 Days #6 tab 01/20/22 blood sugar diagnostic (FreeStyle #100 ea 01/20/22 Lite Strips) blood-glucose meter (FreeStyle #1 ea 01/20/22 Lite Meter) lancets 28 gauge (FreeStyle #100 ea 01/20/22 Lancets) pioglitazone 15 mg tablet 15 mg PO DAILY 90 Days #90 tab 02/01/22 Allergies Allergy/AdvReac Type Severity Reaction Status Date / Time seafood Allergy Intermediate Rash Verified 01/20/22 09:24 Review of Systems Review of Systems: No fever no chills no cough no congestion or upper respiratory symptoms Yes all other systems are reviewed and are negative [facility] Past Medical History Attestation statement: The following information was validated with the patient. Medical History Bronchitis Class 2 obesity with body mass index (BMI) of 39.0 to 39.9 in adult Diabetes mellitus Hypertension Mixed hyperlipidemia Morbid obesity Obesity (BMI 35.0-39.9 without comorbidity) KUNAL (obstructive sleep apnea) Urge urinary incontinence Surgical History No pertinent past surgical history Family History Family History Father Essential hypertension Mother No problems noted. Social History Social History Housing: Apartment Alcohol intake: current Alcohol intake frequency: holidays/special occasions only Alcohol type: beer and wine Patient Tobacco Use Status: Never used Tobacco e-Cigarette/Vaping Use: Never Used Second Hand Smoke Exposure: No Advance Directives: No Advance Directives Information Provided: No service: No Current occupational status: employed Current occupational exposures/hazards: No Cognitive needs: No Hearing needs: No Vision needs: No Physical Exam ED Vital Signs: Vital Signs - 24 hr 03/15/22 17:43 03/15/22 17:47 03/15/22 19:41 Temperature 98.4 F 98.6 F Pulse Rate 115 H 98 Respiratory Rate 20 20 Blood Pressure 175/121 H 167/100 H 134/75 Pulse Oximetry 97 98 03/15/22 21:24 Temperature 98.4 F Pulse Rate 96 Respiratory Rate 16 Blood Pressure 163/87 H Pulse Oximetry 97 BMI result Body Mass Index 47.8 Appearance: Alert. Oriented X3. No acute distress. Eyes: Pupils equal, round and reactive to light. ENT: Pharynx normal. Neck: Normal inspection. Neck supple. No lymph nodes noted. No crepitus CVS: Normal heart rate and rhythm. Pulses normal. Normal S1 and S2 Respiratory: No respiratory distress. Breath sounds normal. No Wheezing. No rales Abdomen: Soft and nontender. No rigidity. No distention. good BS x4 Skin: Skin warm and dry. Normal skin color. Normal skin turgor. Extremities: No lower extremity edema. Neurovascular intact to all extremities. No Lacerations. No Rash Neuro: Oriented X 3. No motor deficit. No sensory deficit. Moving all extermities. No slurred speech Medical Decision Making MDM Narrative Medical decision making narrative: Patient has a nonspecific tightness to the chest all day. As 1st set of troponin was negative. EKG is unchanged it showed a sinus pattern heart rate is proximally 100 there is no MN QRS QT prolongation. No ST segment changes. Patient's electrolytes showed an elevated glucose of approximately 300 there is no evidence for diabetic ketoacidosis. Patient's flu RSV were negative. COVID negative. Explained to patient the need for follow-up. Explained to patient the need to take his normal metformin. Patient states understanding. In stable condition. Will discharge home. Lab Data Result diagrams: 03/15/22 18:27 03/15/22 18:27 Labs: Lab Results 03/15/22 03/15/22 03/15/22 Range/Units 18:04 18:27 18:27 WBC 8.8 (4.8-10.8) X10*3/uL RBC 4.47 L (4.60-5.80) X10*6/uL Hgb 13.9 L (14.0-18.0) g/dl Hct 40.1 L (42.0-52.0) % MCV 89.7 (80.0-98.0) fL MCH 31.1 (27.0-33.0) pg MCHC 34.7 (31.0-36.0) g/dl RDW 13.7 (11.0-16.0) % Plt Count 170 (160-400) X10*3/uL MPV 10.0 (9.4-12.4) fL Immature Gran % (Auto) 0.9 H (0.0-0.4) % Neut % (Auto) 55.9 (45-73) % Lymph % (Auto) 33.9 (20-40) % [place] % (Auto) 7.1 (2-11) % Eos % (Auto) 2.1 (0-4) % Baso % (Auto) 0.1 (0-2) % Lymph # (Auto) 3.0 (1.2-4.9) X10*3/uL [place] # (Auto) 0.6 (0.1-1.2) X10*3/uL Eos # (Auto) 0.2 (0.0-0.4) X10*3/uL Baso # (Auto) 0.0 (0.0-0.2) X10*3/uL Abs Immat Gran (auto) 0.08 H (0.00-0.03) X10*3/uL Absolute Neuts (auto) 4.9 (2.0-8.3) x10*3/uL Absolute Nucleated RBC 0.000 (0.0-0.012) X10*3/uL Nucleated RBC % (auto) 0.0 (0.0-0.2) /100WBC Sodium 139 (135-145) mmol/L Potassium 3.1 L (3.3-5.1) mmol/L Chloride 101 (96-108) mmol/L Carbon Dioxide 26 (22-29) mmol/L Anion Gap 15 (12-20) BUN 9 (9-16) mg/dL Creatinine 1.11 (0.5-1.4) mg/dL Estim Creat Clear Calc 108.1 Estimated GFR > 60 POC Glucose 283 H (60-115) mg/dL Random Glucose 319 H D (60-115) mg/dL Calcium 9.6 (8.4-10.2) mg/dL Troponin I High Sens (<3.5-35.0) ng/L Urine Color Urine Appearance Urine pH (5.0-8.0) Ur Specific Ray (1.005-1.025) Urine Protein (NEG-TRACE) MG/DL Urine Glucose (UA) (NEG) MG/DL Urine Ketones (NEG) MG/DL Urine Blood (NEG) Urine Nitrite (NEG) Ur Leukocyte Esterase (NEG) COVID-19 (ADRIAN) (Negative) COVID-19 Clin Com Influenza Type A (KAREN) (Negative) Influenza Type B (KAREN) (Negative) Influenza A & B Note 03/15/22 03/15/22 03/15/22 Range/Units 18:27 18:27 18:27 WBC (4.8-10.8) X10*3/uL RBC (4.60-5.80) X10*6/uL Hgb (14.0-18.0) g/dl Hct (42.0-52.0) % MCV (80.0-98.0) fL MCH (27.0-33.0) pg MCHC (31.0-36.0) g/dl RDW (11.0-16.0) % Plt Count (160-400) X10*3/uL MPV (9.4-12.4) fL Immature Gran % (Auto) (0.0-0.4) % Neut % (Auto) (45-73) % Lymph % (Auto) (20-40) % [place] % (Auto) (2-11) % Eos % (Auto) (0-4) % Baso % (Auto) (0-2) % Lymph # (Auto) (1.2-4.9) X10*3/uL [place] # (Auto) (0.1-1.2) X10*3/uL Eos # (Auto) (0.0-0.4) X10*3/uL Baso # (Auto) (0.0-0.2) X10*3/uL Abs Immat Gran (auto) (0.00-0.03) X10*3/uL Absolute Neuts (auto) (2.0-8.3) x10*3/uL Absolute Nucleated RBC (0.0-0.012) X10*3/uL Nucleated RBC % (auto) (0.0-0.2) /100WBC Sodium (135-145) mmol/L Potassium (3.3-5.1) mmol/L Chloride (96-108) mmol/L Carbon Dioxide (22-29) mmol/L Anion Gap (12-20) BUN (9-16) mg/dL Creatinine (0.5-1.4) mg/dL Estim Creat Clear Calc Estimated GFR POC Glucose (60-115) mg/dL Random Glucose (60-115) mg/dL Calcium (8.4-10.2) mg/dL Troponin I High Sens 8.0 D (<3.5-35.0) ng/L Urine Color Urine Appearance Urine pH (5.0-8.0) Ur Specific Ray (1.005-1.025) Urine Protein (NEG-TRACE) MG/DL Urine Glucose (UA) (NEG) MG/DL Urine Ketones (NEG) MG/DL Urine Blood (NEG) Urine Nitrite (NEG) Ur Leukocyte Esterase (NEG) COVID-19 (ADRIAN) Negative (Negative) COVID-19 Clin Com See Note Influenza Type A (KAREN) Negative (Negative) Influenza Type B (KAREN) Negative (Negative) Influenza A & B Note See Note 03/15/22 03/15/22 03/15/22 Range/Units 19:39 20:02 21:25 WBC (4.8-10.8) X10*3/uL RBC (4.60-5.80) X10*6/uL Hgb (14.0-18.0) g/dl Hct (42.0-52.0) % MCV (80.0-98.0) fL MCH (27.0-33.0) pg MCHC (31.0-36.0) g/dl RDW (11.0-16.0) % Plt Count (160-400) X10*3/uL MPV (9.4-12.4) fL Immature Gran % (Auto) (0.0-0.4) % Neut % (Auto) (45-73) % Lymph % (Auto) (20-40) % [place] % (Auto) (2-11) % Eos % (Auto) (0-4) % Baso % (Auto) (0-2) % Lymph # (Auto) (1.2-4.9) X10*3/uL [place] # (Auto) (0.1-1.2) X10*3/uL Eos # (Auto) (0.0-0.4) X10*3/uL Baso # (Auto) (0.0-0.2) X10*3/uL Abs Immat Gran (auto) (0.00-0.03) X10*3/uL Absolute Neuts (auto) (2.0-8.3) x10*3/uL Absolute Nucleated RBC (0.0-0.012) X10*3/uL Nucleated RBC % (auto) (0.0-0.2) /100WBC Sodium (135-145) mmol/L Potassium (3.3-5.1) mmol/L Chloride (96-108) mmol/L Carbon Dioxide (22-29) mmol/L Anion Gap (12-20) BUN (9-16) mg/dL Creatinine (0.5-1.4) mg/dL Estim Creat Clear Calc Estimated GFR POC Glucose 326 H 267 H (60-115) mg/dL Random Glucose (60-115) mg/dL Calcium (8.4-10.2) mg/dL Troponin I High Sens (<3.5-35.0) ng/L Urine Color YELLOW Urine Appearance CLEAR Urine pH 6.5 (5.0-8.0) Ur Specific Ray 1.015 (1.005-1.025) Urine Protein NEG (NEG-TRACE) MG/DL Urine Glucose (UA) 500 H (NEG) MG/DL Urine Ketones NEG (NEG) MG/DL Urine Blood NEG (NEG) Urine Nitrite NEG (NEG) Ur Leukocyte Esterase NEG (NEG) COVID-19 (ADRIAN) (Negative) COVID-19 Clin Com Influenza Type A (KAREN) (Negative) Influenza Type B (KAREN) (Negative) Influenza A & B Note Discharge Plan Discharge Clinical Impression: Diabetes mellitus, Acute hyperglycemia Patient Disposition: Home, Self-Care Instructions: Type 2 Diabetes Management for Adults (ED), Diabetic Hyperglycemia (ED), Chest Pain (ED) Prescriptions: No Action amlodipine 5 mg tablet 5 mg PO DAILY 90 Days Qty: 90 1RF pioglitazone 15 mg tablet 15 mg PO DAILY 90 Days Qty: 90 0RF (DME) blood pressure monitor Kit See Rx Instructions .Route Qty: 1 0RF Rx Instructions: As directed azithromycin 250 mg tablet 250 mg PO DIRECTED 5 Days Qty: 6 0RF Rx Instructions: Take 2 tabs the first day, then 1 tab for the next 4 days (DME) blood-glucose meter [FreeStyle Lite Meter] Kit See Rx Instructions .Route Qty: 1 0RF Rx Instructions: As directed (DME) FreeStyle Lite Strips Strip See Rx Instructions .Route Qty: 100 2RF Rx Instructions: Use 1 test strip once a day (DME) lancets [FreeStyle Lancets] 28 gauge misc See Rx Instructions .Route Qty: 100 1RF Rx Instructions: Use 1 lancet once a day Referrals: Jazzmine Alvarado MD [Primary Care Provider] - Gino Webb MD [Physician] - Print Language: Luxembourgish
[2022-03-15] MEDS: 0.9 % Sodium Chloride 1,000 ML 999 ML IV (18:32)
[2022-03-15 18:35] LABS: Basophils Percent Auto 0.1 % (0-2); Eosinophils Absolute Auto 0.2 X10*3/uL (0.0-0.4); Eosinophils Percent Auto 2.1 % (0-4); Hematocrit 40.1 % (42.0-52.0); Hemoglobin 13.9 g/dl (14.0-18.0); Imm Gran Abs Auto 0.08 X10*3/uL (0.00-0.03); Imm Gran Pct Auto 0.9 % (0.0-0.4); Lymphocytes Percent Auto 33.9 % (20-40); MANUAL DIFF FLAG NO; Mean Corpuscular HGB Conc 34.7 g/dl (31.0-36.0); Mean Corpuscular Hemoglobin 31.1 pg (27.0-33.0); Mean Corpuscular Volume 89.7 fL (80.0-98.0); Monocytes Absolute Auto 0.6 X10*3/uL (0.1-1.2); Monocytes Percent Auto 7.1 % (2-11); Neutrophils Absolute Auto 4.9 x10*3/uL (2.0-8.3); Neutrophils Percent Auto 55.9 % (45-73); Platelet Count 170 X10*3/uL (160-400); Red Blood Count 4.47 X10*6/uL (4.60-5.80); Red Cell Distribution Width 13.7 % (11.0-16.0); White Blood Count 8.8 X10*3/uL (4.8-10.8)
[2022-03-15 18:48] LABS: Anion Gap 15 (12-20); Blood Urea Nitrogen 9 mg/dL (9-16); Calcium 9.6 mg/dL (8.4-10.2); Carbon Dioxide 26 mmol/L (22-29); Chloride 101 mmol/L (96-108); Creatinine Clr Calc Pharmacy 108.1; Estimated Glomerular Filt Rate > 60; Glucose Random 319 mg/dL (60-115); Potassium 3.1 mmol/L (3.3-5.1); Sodium 139 mmol/L (135-145)
[2022-03-15 18:50] LABS: COVID-19 Test Negative (Negative)
[2022-03-15 19:01] LABS: IDNOW Serial# 08D9AD1C; Influenza A Negative (Negative); Influenza B2 Negative (Negative)
[2022-03-15 19:41] VITALS: BP 134/75; PULSE 98; RESP 20; TEMP 37; O2SAT 98
[2022-03-15 19:45] LABS: Glucose, Whole Blood 326 mg/dL (60-115)
[2022-03-15] MEDS: Insulin Regular, Human 100 UNIT/ML 3 ML VIAL IVPUSH (20:04)
[2022-03-15 20:09] LABS: Appearance Urine CLEAR; Color Urine YELLOW; Glucose Urine UA 500 MG/DL (NEG); Leukocyte Esterase Urine NEG (NEG); Nitrite Urine NEG (NEG); PH 6.5 (5.0-8.0); Specific Gravity - Urine 1.015 (1.005-1.025); Urine Blood NEG (NEG); Urine Ketones NEG (NEG); Urine Protein NEG (NEG-TRACE)
[2022-03-15 21:24] VITALS: BP 163/87; PULSE 96; RESP 16; TEMP 36.9; O2SAT 97
[2022-03-15 21:28] LABS: Glucose, Whole Blood 267 mg/dL (60-115)
== END 2022-03-15 22:30 | disposition home or self-care (01) ==
PROVIDERS: Emergency Provider Emergency Medicine Emergency Medical Services; PCP Internal Medicine
DX: R53.83 Other fatigue (principal); E11.649 Type 2 diabetes mellitus with hypoglycemia without coma; Z79.4 Long term (current) use of insulin; Z20.822 Contact with and (suspected) exposure to COVID-19; Z79.899 Other long term (current) drug therapy
CPT/HCPCS: 36415; 80048; 81003; 82947; 84484; 85025; 87502; 87635; 93005; 96361; 96374; 99284

== ENCOUNTER 2022-04-26 12:33 | Emergency (ER) | payer OTHER, SELFPAY ==
--- NOTE | ~2022-04-26 | XR_ITS ---
EXAMINATION: XR CHEST CLINICAL INFORMATION: Chest pain COMPARISON: Previous chest x-ray most recent January 2022 TECHNIQUE: Frontal view of the chest was obtained. FINDINGS: The cardiac and mediastinal contours are stable. The lungs are clear. There is no pleural effusion or pneumothorax. Bony structures are normal. XR/XR chest 1V IMPRESSION: Unremarkable examination.
--- NOTE | ~2022-04-26 | US_ITS ---
EXAMINATION: US VENOUS ULTRASOUND WITH DOPPLER LOWER EXTREMITY, BILATERAL CLINICAL INFORMATION: Bilateral lower extremity pain and swelling COMPARISON: None TECHNIQUE: Ultrasound of the deep veins is performed from the hip to the calf with compression sonography and color and pulse Doppler assessment. Spectral analysis with color-flow imaging is performed. FINDINGS: RIGHT: There is normal venous compression and respiratory variation and augmented flow. The visualized common femoral vein, superficial femoral vein, profunda femoral vein, popliteal vein, and the trifurcation region shows no evidence of deep venous thrombosis. There is no significant popliteal fossa cyst. LEFT: There is normal venous compression and respiratory variation and augmented flow. The visualized common femoral vein, superficial femoral vein, profunda femoral vein, popliteal vein, and the trifurcation region shows no evidence of deep venous thrombosis. There is no significant popliteal fossa cyst. If the patient's symptoms persist, followup ultrasound in 5 days 7 days might be of value to exclude proximal propagation from a non-visualized calf vein. US/US venous duplex LE BI IMPRESSION: No DVT demonstrated in either lower extremity.
--- NOTE | 2022-04-26 12:40 | ECG_ITS ---
Test Reason : cp Blood Pressure : / mmHG Vent. Rate : 102 BPM Atrial Rate : 102 BPM P-R Int : 168 ms QRS Dur : 082 ms QT Int : 338 ms P-R-T Axes : 054 045 024 degrees QTc Int : 440 ms Sinus tachycardia Cannot rule out Anterior infarct (cited on or before 15-MAR-2022) Abnormal ECG When compared with ECG of 15-MAR-2022 17:49, No significant change was found Referred By: Generic ED Physician Electronically Signed By:CLEMENCIA DOYLE MD
[2022-04-26 12:50] VITALS: BP 175/115; PULSE 104; RESP 19; TEMP 36.6; O2SAT 98; BMI 47.8
[2022-04-26 13:01] LABS: MANUAL DIFF FLAG NO
[2022-04-26 13:07] LABS: Basophils Percent Auto 0.1 % (0-2); Eosinophils Absolute Auto 0.1 X10*3/uL (0.0-0.4); Eosinophils Percent Auto 1.5 % (0-4); Hematocrit 39.6 % (42.0-52.0); Hemoglobin 13.8 g/dl (14.0-18.0); Imm Gran Abs Auto 0.03 X10*3/uL (0.00-0.03); Imm Gran Pct Auto 0.3 % (0.0-0.4); Lymphocytes Absolute Auto 3.2 X10*3/uL (1.2-4.9); Lymphocytes Percent Auto 36.4 % (20-40); Mean Corpuscular HGB Conc 34.8 g/dl (31.0-36.0); Mean Corpuscular Hemoglobin 31.3 pg (27.0-33.0); Mean Corpuscular Volume 89.8 fL (80.0-98.0); Mean Platelet Volume 10.5 fL (9.4-12.4); Monocytes Absolute Auto 0.6 X10*3/uL (0.1-1.2); Monocytes Percent Auto 6.3 % (2-11); Neutrophils Absolute Auto 4.9 x10*3/uL (2.0-8.3); Neutrophils Percent Auto 55.4 % (45-73); Platelet Count 171 X10*3/uL (160-400); Red Blood Count 4.41 X10*6/uL (4.60-5.80); Red Cell Distribution Width 13.2 % (11.0-16.0); White Blood Count 8.8 X10*3/uL (4.8-10.8)
[2022-04-26 13:24] LABS: Anion Gap 10 (12-20); Blood Urea Nitrogen 11 mg/dL (9-16); Calcium 9.1 mg/dL (8.4-10.2); Carbon Dioxide 28 mmol/L (22-29); Chloride 101 mmol/L (96-108); Estimated Glomerular Filt Rate > 60; Glucose Random 333 mg/dL (60-115); Potassium 3.1 mmol/L (3.3-5.1); Sodium 136 mmol/L (135-145)
[2022-04-26 13:27] LABS: Troponin-I High Sensitivity 7.5 ng/L (<3.5-35.0)
--- NOTE | 2022-04-26 17:13 | ED_ITS ---
HPI - Chest Pain General Chief Complaint: Chest Pain Stated Complaint: chest pain pins needles in feet Time Seen by Provider: 04/26/22 16:58 Source: patient Mode of arrival: ambulatory Limitations: language barrier History of Present Illness HPI narrative: 37-year-old male with a past medical history of diabetes currently on metformin no insulin, hypertension currently on amlodipine 5 mg and lisinopril 20 mg, hyp erlipidemia, obstructive sleep apnea and obesity who reports he did not take his medications this morning presenting to the ED with complaints of chest pain of the entire chest that has been constant for the past 3 weeks that radiates to his left arm and gives him numbness/tingling. He reports that he feels pins and needles in his feet and he has also had increased urinary frequency/urgency with polyuria. He reports he can no longer see far although this has been progressively increasing over the past few months. He reports associated lower extremity swelling and bilateral calf tenderness. He denies any fevers, chills, dizziness, nausea/vomiting, dyspnea on exertion, orthopnea, palpitations, paresthesias, cough, abdominal pain, distension of the abdomen, back pain, dysuria, hematuria, abnormal penile discharge, rashes, recent falls or trauma, any estrogen usage, any recent surgery or immobilization, history of cancer surgery recently, hypercoagulation disorder that he is aware of or any other symptoms complaints or concerns at this time. MD complaint: chest pain Pertinent past history: other (See above) Onset (ago): week(s) (3) Timing of current episode: constant Prior episodes: Yes Onset: other (Cannot recall) Pain location: other (The entire chest) Pain radiation: left arm Severity: moderate Quality: aching Relieving factors: nothing Exacerbating factors: nothing Associated symptoms: other (Paresthesias) Treatment prior to arrival: none Risk Factors Coronary artery disease risk factors: diabetes, hyperlipidemia and hypertension Thoracic aortic dissection risk factors: none Related Data Previous Rx's Medication Instructions Recorded blood pressure monitor #1 ea 12/02/21 amlodipine 5 mg tablet 5 mg PO DAILY 90 days #90 tabs 12/21/21 azithromycin 250 mg tablet 250 mg PO DIRECTED 5 days #6 01/20/22 tabs blood sugar diagnostic (FreeStyle #100 ea 01/20/22 Lite Strips) blood-glucose meter (FreeStyle #1 ea 01/20/22 Lite Meter) lancets 28 gauge (FreeStyle #100 ea 01/20/22 Lancets) pioglitazone 15 mg tablet 15 mg PO DAILY 90 days #90 tabs 02/01/22 Allergies Allergy/AdvReac Type Severity Reaction Status Date / Time seafood Allergy Intermediate Rash Verified 01/20/22 09:24 Review of Systems Review of Systems: Constitutional : No Weight loss, No Fever, No Chills, No Night Sweats, No Fatigue, No Malaise ENT/Mouth : No Hearing loss, No Ear Pain, No Nasal Congestion, No Sinus Pain, No Hoarseness, No sore throat, No Rhinorrhea, No Swallowing Difficulty Eyes: No Eye Pain, No Swelling, No Redness, No Foreign Body, No Discharge, No Vision Changes Cardiovascular : + Chest Pain, + LE B/L Edema, No SOB, No Dyspnea on Exertion, No Orthopnea, No Palpitations Respiratory : No Cough, No Sputum, No Wheezing, No Smoke Exposure, No Dyspnea Gastrointestinal : No Nausea, No Vomiting, No Diarrhea, No Constipation, No abdominal Pain, No Hematochezia, No Melena Genitourinary : no irregular bleeding, No Dysuria, No Urinary Frequency, No Hematuria, No Urinary Incontinence, No Urgency, No Flank Pain, No Urinary Flow Changes, No Hesitancy Musculoskeletal : No joint pain, No Myalgias, No Joint Swelling Skin : No Skin Lesions, No rash Neuro : + left arm tingling/pins and needles sensation, No Weakness, No Loss of Consciousness, No Dizziness, No Headache Psych : No Anxiety/Panic, No Depression, No SI/HI/AH/VH, No Social Issues, Heme/Lymph: No Bruising, No Bleeding,No Lymphadenopathy Endocrine : No Polyuria, No Polydipsia, No Temperature Intolerance Yes all other systems are reviewed and are negative [facility] Past Medical History Attestation statement: The following information was validated with the patient. Source: old records reviewed and nursing notes reviewed Medical History Bronchitis Class 2 obesity with body mass index (BMI) of 39.0 to 39.9 in adult Diabetes mellitus Hypertension Mixed hyperlipidemia Morbid obesity Obesity (BMI 35.0-39.9 without comorbidity) KUNAL (obstructive sleep apnea) Urge urinary incontinence Surgical History No pertinent past surgical history Family History Family History Father Essential hypertension Mother No problems noted. Social History Social History Housing: Apartment Alcohol intake: current Alcohol intake frequency: holidays/special occasions only Alcohol type: beer and wine Patient Tobacco Use Status: Never used Tobacco e-Cigarette/Vaping Use: Never Used Second Hand Smoke Exposure: No Advance Directives: No Advance Directives Information Provided: Yes service: No Current occupational status: employed Current occupational exposures/hazards: No Cognitive needs: No Hearing needs: No Vision needs: No Physical Exam Vital Signs: Vital Signs: Last Vital Signs Temp 98 F 04/26/22 12:50 Pulse 89 04/26/22 18:18 Resp 18 04/26/22 18:18 BP 144/83 H 04/26/22 18:18 Pulse Ox 99 04/26/22 18:18 O2 Del Method 04/26/22 18:18 BMI result Body Mass Index 47.8 vital signs have been reviewed as normal and appeared to be correct. Blood pressure 175/115. Heart rate 104. Respiration rate normal. Temperature normal. Oxygen saturation normal. Appearance: Alert. Oriented X3. No acute distress. Head: Normal external exam. Normocephalic. Atraumatic. Eyes: PERRLA. EOMI. Conjunctiva and sclera normal. Eyelids normal. ENT: Pharynx normal. Uvula midline. Moist mucous membranes. No lesions/ulcerations or masses noted on the tongue. Normal voice. No trismus noted. No drooling noted. No muffled voice noted. Neck: Normal inspection. Neck supple. FROM. No adenopathy. Thyroid Normal. No meningeal signs. CVS: Normal heart rate and rhythm. Heart sound normal. Pulses normal throughout. No murmurs/rales/gallops. Respiratory: No respiratory distress. Painless inspiration. Breath sounds normal. No wheezes/rales/rhonchi noted. Chest nontender. No crepitus is noted. No signs of trauma noted. No accessory muscle usage noted or decreased air movement noted. Abdomen: Soft and nontender. Bowel sounds normal in all 4 quadrants. No distention noted. No organomegaly noted. No visible injury noted. Back: No CVA tenderness. Full range of motion noted. Nontender. No signs of trauma. Patient neuro intact bilaterally and distally on all 4 extremities. Patient's reflexes intact bilaterally and distally on all 4 extremities. No rashes/lesion/induration/fluctuance or signs of infection noted. Skin: Skin warm and dry. Normal skin color. Normal skin turgor. No rashes/lesions/lacerations noted. Extremities: + 2 pitting edema to b/l lower extremity. + b/l calf tenderness is noted. Extremities exhibit normal range of motion and nontender. Neuro: Oriented X 3. No motor deficit. No sensory deficit. Reflexes normal. Normal steady gait. No focal neuro deficits noted. CN's II-XII intact bilaterally? Vascular: + radial pulses/+ 2 distal pedal pulses/+2 dorsalis pedis b/l. Normal cap refill. No cyanosis noted to upper extremity nails and lower extremity toes nails. Course Course Course Narrative: 17pm - 37-year-old male with a past medical history of DM currently on metformin no insulin, HTN currently on amlodipine 5 mg and lisinopril 20 mg, HLD, obstructive sleep apnea and obesity who reports he did not take his medications this morning presenting to the ED with complaints of chest pain of the entire chest that has been constant for the past 3 weeks that radiates to his left arm and gives him numbness/tingling. He reports that he feels pins and needles in his feet and he has also had increased urinary frequency/urgency with polyuria. He reports he can no longer see far although this has been progressively increasing over the past few months. He reports associated lower extremity swelling and bilateral calf tenderness. Labs were obtained while the patient was in triage and patient mild baseline anemia similar compared to prior. Potassium 3.1 therefore will replenish with 40 mEq of p.o. potassium. Anion gap 10. Random glucose 333. Troponin 7.5 therefore will repeat in 3 hours. Otherwise all other labs are within normal limits. Chest x-ray within normal limits no acute processes noted. EKG is sinus tachycardia with ventricular rate of [address] abnormalities no acute ischemic change are noted. Similar compared to prior EKG 03/15/2022. Therefore at this time will repeat a troponin, add magnesium/LFTs in BNP, venous duplex ultrasound of bilateral lower extremity and re-evaluate. Reevaluation(s) Reevaluation #1: - repeat troponin 7.6. Technically negative delta. BNP negative. Venous duplex ultrasound of left lower extremity negative. - patient with atypical chest pain. His blood pressure has improved. Will repeat POC if improved will DC home with instructions to follow up with Cardiology for outpatient Holter monitor possibly and to follow up with PCP. Patient understands agrees with this plan. Time: 19:36 MDM - Chest Pain Medical Records Data Attestation: I reviewed the patient's medical records. Lab Data Attestation: I reviewed the patient's lab results. Result diagrams: 04/26/22 12:57 04/26/22 12:57 Labs: Lab Results 04/26/22 04/26/22 04/26/22 Range/Units 12:57 12:57 12:57 WBC 8.8 (4.8-10.8) X10*3/uL RBC 4.41 L (4.60-5.80) X10*6/uL Hgb 13.8 L (14.0-18.0) g/dl Hct 39.6 L (42.0-52.0) % MCV 89.8 (80.0-98.0) fL MCH 31.3 (27.0-33.0) pg MCHC 34.8 (31.0-36.0) g/dl RDW 13.2 (11.0-16.0) % Plt Count 171 (160-400) X10*3/uL MPV 10.5 (9.4-12.4) fL Immature Gran % (Auto) 0.3 (0.0-0.4) % Neut % (Auto) 55.4 (45-73) % Lymph % (Auto) 36.4 (20-40) % [place] % (Auto) 6.3 (2-11) % Eos % (Auto) 1.5 (0-4) % Baso % (Auto) 0.1 (0-2) % Lymph # (Auto) 3.2 (1.2-4.9) X10*3/uL [place] # (Auto) 0.6 (0.1-1.2) X10*3/uL Eos # (Auto) 0.1 (0.0-0.4) X10*3/uL Baso # (Auto) 0.0 (0.0-0.2) X10*3/uL Abs Immat Gran (auto) 0.03 (0.00-0.03) X10*3/uL Absolute Neuts (auto) 4.9 (2.0-8.3) x10*3/uL Absolute Nucleated RBC 0.000 (0.0-0.012) X10*3/uL Nucleated RBC % (auto) 0.0 (0.0-0.2) /100WBC Sodium 136 (135-145) mmol/L Potassium 3.1 L (3.3-5.1) mmol/L Chloride 101 (96-108) mmol/L Carbon Dioxide 28 (22-29) mmol/L Anion Gap 10 L (12-20) BUN 11 (9-16) mg/dL Creatinine 1.20 (0.5-1.4) mg/dL Estim Creat Clear Calc 100.0 Estimated GFR > 60 Random Glucose 333 H (60-115) mg/dL Calcium 9.1 (8.4-10.2) mg/dL Magnesium 1.8 (1.6-2.6) mg/dL Total Bilirubin 0.6 (0.0-1.0) mg/dL Direct Bilirubin 0.2 (0.0-0.5) mg/dL AST 37 (5-37) U/L ALT 60 H (0-40) U/L Alkaline Phosphatase 110 D (39-117) U/L Troponin I High Sens 7.5 (<3.5-35.0) ng/L B-Natriuretic Peptide Cancelled Total Protein 7.0 (6.5-8.0) g/dL Albumin 3.7 (3.5-5.0) g/dL 04/26/22 Range/Units 18:20 WBC (4.8-10.8) X10*3/uL RBC (4.60-5.80) X10*6/uL Hgb (14.0-18.0) g/dl Hct (42.0-52.0) % MCV (80.0-98.0) fL MCH (27.0-33.0) pg MCHC (31.0-36.0) g/dl RDW (11.0-16.0) % Plt Count (160-400) X10*3/uL MPV (9.4-12.4) fL Immature Gran % (Auto) (0.0-0.4) % Neut % (Auto) (45-73) % Lymph % (Auto) (20-40) % [place] % (Auto) (2-11) % Eos % (Auto) (0-4) % Baso % (Auto) (0-2) % Lymph # (Auto) (1.2-4.9) X10*3/uL [place] # (Auto) (0.1-1.2) X10*3/uL Eos # (Auto) (0.0-0.4) X10*3/uL Baso # (Auto) (0.0-0.2) X10*3/uL Abs Immat Gran (auto) (0.00-0.03) X10*3/uL Absolute Neuts (auto) (2.0-8.3) x10*3/uL Absolute Nucleated RBC (0.0-0.012) X10*3/uL Nucleated RBC % (auto) (0.0-0.2) /100WBC Sodium (135-145) mmol/L Potassium (3.3-5.1) mmol/L Chloride (96-108) mmol/L Carbon Dioxide (22-29) mmol/L Anion Gap (12-20) BUN (9-16) mg/dL Creatinine (0.5-1.4) mg/dL Estim Creat Clear Calc Estimated GFR Random Glucose (60-115) mg/dL Calcium (8.4-10.2) mg/dL Magnesium (1.6-2.6) mg/dL Total Bilirubin (0.0-1.0) mg/dL Direct Bilirubin (0.0-0.5) mg/dL AST (5-37) U/L ALT (0-40) U/L Alkaline Phosphatase (39-117) U/L Troponin I High Sens 7.6 (<3.5-35.0) ng/L B-Natriuretic Peptide < 10 Total Protein (6.5-8.0) g/dL Albumin (3.5-5.0) g/dL Imaging Data Chest x-ray: Attestation: I personally reviewed and interpreted this imaging study as follows: Radiologist's impression: FINDINGS: The cardiac and mediastinal contours are stable. The lungs are clear. There is no pleural effusion or pneumothorax. Bony structures are normal. XR/XR chest 1V IMPRESSION: Unremarkable examination. Venous duplex ultrasound of bilateral lower extremity: Attestation: I personally reviewed and interpreted this imaging study as follows: Radiologist's impression: FINDINGS: RIGHT: There is normal venous compression and respiratory variation and augmented flow. The visualized common femoral vein, superficial femoral vein, profunda femoral vein, popliteal vein, and the trifurcation region shows no evidence of deep venous thrombosis. ? There is no significant popliteal fossa cyst. LEFT: There is normal venous compression and respiratory variation and augmented flow. The visualized common femoral vein, superficial femoral vein, profunda femoral vein, popliteal vein, and the trifurcation region shows no evidence of deep venous thrombosis. ? There is no significant popliteal fossa cyst. If the patient's symptoms persist, followup ultrasound in 5 days 7 days might be of value to exclude proximal propagation from a non-visualized calf vein. US/US venous duplex LE BI IMPRESSION: No DVT demonstrated in either lower extremity. ECG Data ECG #1: Attestation: I personally reviewed and interpreted this ECG as follows: ECG interpretation date: 04/26/22 ECG interpretation time: 12:36 Interpretation: Sinus tachycardia ventricular rate of [address] abnormalities noted. No acute ischemic change are noted. Similar compared to prior EKG 03/15/2022 Discharge Plan Discharge Clinical Impression: Atypical chest pain, High blood pressure, Pedal edema, Acute hyperglycemia, Acute hypokalemia Patient Disposition: Home, Self-Care Instructions: Chest Pain (ED), Potassium Content of Foods List (ED), Hypokalemia (ED), Diabetic Hyperglycemia (ED) Additional Instructions: Follow-up with your PCP For recheck of the patient's chemistry due to low potassium of 3.1 given p.o. potassium while in the emergency department this week. Seguimiento con barajas PCP Para volver a verificar la qu?vannessa del paciente debido al bajo nivel de potasio de 3.1 potasio p.o. mientras estaba en el departamento de emergencias esta semana. Prescriptions: No Action amlodipine 5 mg tablet 5 mg PO DAILY 90 Days Qty: 90 1RF pioglitazone 15 mg tablet 15 mg PO DAILY 90 Days Qty: 90 0RF (DME) blood pressure monitor Kit See Rx Instructions .Route Qty: 1 0RF Rx Instructions: As directed azithromycin 250 mg tablet 250 mg PO DIRECTED 5 Days Qty: 6 0RF Rx Instructions: Take 2 tabs the first day, then 1 tab for the next 4 days (DME) blood-glucose meter [FreeStyle Lite Meter] Kit See Rx Instructions .Route Qty: 1 0RF Rx Instructions: As directed (DME) FreeStyle Lite Strips Strip See Rx Instructions .Route Qty: 100 2RF Rx Instructions: Use 1 test strip once a day (DME) lancets [FreeStyle Lancets] 28 gauge misc See Rx Instructions .Route Qty: 100 1RF Rx Instructions: Use 1 lancet once a day Referrals: Jazzmine Alvarado MD [Primary Care Provider] - 2 days (For recheck of the patient's chemistry due to low potassium of 3.1 given p.o. potassium while in the emergency department and possible electrical cad designer referral) Elgin Atkinson MD [Physician] - 1 week Stand Alone Forms: Work/School Release Print Language: Pashto
[2022-04-26 17:33] LABS: Alanine Aminotransferase 60 U/L (0-40); Albumin Level 3.7 g/dL (3.5-5.0); Alkaline Phosphatase 110 U/L (39-117); Aspartate Amino Transferase 37 U/L (5-37); Bilirubin Direct 0.2 mg/dL (0.0-0.5); Bilirubin Total 0.6 mg/dL (0.0-1.0); Magnesium 1.8 mg/dL (1.6-2.6)
[2022-04-26] MEDS: amLODIPine Besylate 5 MG TABLET PO (18:14)
[2022-04-26] MEDS: Potassium Chloride Packet 20 MEQ PACKET 40 MEQ PO (18:16)
[2022-04-26] MEDS: metFORMIN HCl ER 500 MG TAB.ER.24H PO (18:16)
[2022-04-26] MEDS: lisinopriL 20 MG TABLET PO (18:16)
[2022-04-26 18:18] VITALS: BP 144/83; PULSE 89; RESP 18; O2SAT 99
[2022-04-26 18:48] LABS: B Type Natriuretic Peptide < 10 pg/mL (<100); Troponin-I High Sensitivity 7.6 ng/L (<3.5-35.0)
--- NOTE | 2022-04-26 20:57 | PC.NURSE ---
pt discharge by provider.
== END 2022-04-26 20:57 | disposition home or self-care (01) ==
PROVIDERS: Physician Assistant Medical; Emergency Provider Internal Medicine; PCP Internal Medicine
DX: R07.89 Other chest pain (principal); R60.0 Localized edema; E11.65 Type 2 diabetes mellitus with hyperglycemia; E23.2 Diabetes insipidus; R06.02 Shortness of breath; M79.605 Pain in left leg; M79.604 Pain in right leg; I10 Essential (primary) hypertension; Z79.899 Other long term (current) drug therapy
CPT/HCPCS: 36415; 71045; 80048; 80076; 83735; 83880; 84484; 85025; 93005; 93970; 99283; 99284

== ENCOUNTER 2022-05-06 23:26 | Emergency (ER) | payer OTHER, SELFPAY ==
--- NOTE | 2022-05-06 | ECG_ITS ---
Test Reason : CHEST PAIN Blood Pressure : / mmHG Vent. Rate : 102 BPM Atrial Rate : 102 BPM P-R Int : 166 ms QRS Dur : 086 ms QT Int : 334 ms P-R-T Axes : 038 029 014 degrees QTc Int : 435 ms Sinus tachycardia Nonspecific T wave abnormality Abnormal ECG When compared with ECG of 26-APR-2022 12:34, No significant change was found Referred By: Generic ED Physician Electronically Signed By:Kvng Amezcua
--- NOTE | ~2022-05-06 | CT_ITS ---
EXAMINATION: CT ANGIOGRAM OF THE CHEST WITH AND WITHOUT CONTRAST (CT PULMONARY ANGIOGRAM FOR PE) CLINICAL INFORMATION: Reason for Exam Tachycardia, chest pain COMPARISON: Chest x-ray from earlier today TECHNIQUE: Prior to contrast administration, noncontrast localization images were obtained. Subsequently, multidetector volumetric imaging was performed from the thoracic inlet to below the diaphragms following the administration of 85 mL Omnipaque 350 intravenous contrast. No contrast reaction reported Sagittal, coronal, and MIP oblique sagittal reformatted images were obtained on the CT workstation, uploaded to PACS, and reviewed. This CT examination was performed using dose optimization techniques as appropriate, variously including the following: *Automated exposure control *Adjustment of mA and/or kV according to patient size (this includes techniques or standardized protocols for targeted exams where dose is matched to indication/reason for exam; i.e. extremities or head) *Use of iterative reconstruction technique Total exam dose-length product 442 mGy-cm FINDINGS: QUALITY OF STUDY/CONTRAST BOLUS: Suboptimal. PULMONARY ARTERIES: No central pulmonary embolus identified. However, assessment of the segmental and subsegmental vasculature is incomplete due to suboptimal bolus timing, and emboli at these levels cannot be excluded. THORACIC AORTA: No aneurysm or dissection. LUNG: Detailed parenchymal evaluation is limited due to respiratory motion artifact. No regions of consolidation bilaterally. A calcified granuloma is noted in the left upper lobe. PLEURA: No pleural effusion or pneumothorax. MEDIASTINUM: Visualized thyroid gland is unremarkable. Small hiatal hernia is suspected. There are subcentimeter mediastinal lymph nodes within the range of normal variation. Cardiac size is within normal limits; no pericardial effusion. CHEST WALL/AXILLA: No axillary or internal mammary lymphadenopathy. OSSEOUS STRUCTURES: No acute or suspicious osseous abnormality. UPPER ABDOMEN: There is hypoattenuation of the liver suspicious for steatosis. No reflux of contrast into the hepatic veins to suggest elevated right heart pressures. CT/CT angio chest PE protocol IMPRESSION: 1. No central pulmonary embolus identified. However, there is inadequate of the segmental and subsegmental vessels due to suboptimal bolus timing. 2. Hepatic steatosis. VTE: negative
--- NOTE | ~2022-05-06 | XR_ITS ---
EXAMINATION: XR CHEST CLINICAL INFORMATION: Chest pain COMPARISON: Chest x-ray 04/26/2022 TECHNIQUE: Frontal view of the chest was obtained. 0035 hours FINDINGS: No significant abnormality is noted involving the heart, lungs, mediastinum, bony thorax or soft tissues. XR/XR chest 1V IMPRESSION: Unremarkable examination.
[2022-05-06 23:33] VITALS: BP 133/93; BP 151/117; PULSE 106; RESP 14; TEMP 36.7; O2SAT 98; O2SAT 99; BMI 36.6
[2022-05-06 23:39] VITALS: BP 133/93; PULSE 104; PULSE 106; RESP 14; TEMP 36.7; O2SAT 99
--- NOTE | 2022-05-06 23:46 | PC.NURSE ---
Pt came in with chest pain and pressure lasting 10 days but increasing today. Pt is not compliant with his medications. EMS gave nitro and aspirin with good results. Pt stated he has been seen for similar symptoms but has not been able to see a specialist.
--- NOTE | 2022-05-06 23:50 | ED.CHESTPAIN ---
HPI - Chest Pain General Chief Complaint: Chest Pain Stated Complaint: cp Time Seen by Provider: 05/07/22 03:00 Source: patient and EMS Mode of arrival: EMS Limitations: language barrier History of Present Illness HPI narrative: 37-year-old male presents via EMS for chest pain that he has had for 10 days. States that over the past hour his pain has increased and radiated up to his left arm. He was walking around his yard outside when the pain exacerbated and radiated to his left arm. He states to have had some dizziness and nausea with this pain. He was evaluated for chest pain similar to this and was recommended follow-up with his primary care physician. He does not report palpitations, changes in vision, cough, shortness of breath, abdominal pain and distention dysuria, hematuria, fevers or chills. MD complaint: chest pain Onset (ago): day(s) (10) Timing of current episode: episodic Prior episodes: Yes Onset: during exertion Pain location: left chest Pain radiation: left arm Severity: moderate Pain scale (0-10): 6 Quality: sharp Relieving factors: rest Exacerbating factors: exertion and palpation Context: non compliance with medication Associated symptoms: other (Dizziness) Treatment prior to arrival: aspirin (324) Risk Factors Coronary artery disease risk factors: diabetes, hyperlipidemia and hypertension Thoracic aortic dissection risk factors: none Related Data Previous Rx's Medication Instructions Recorded blood pressure monitor #1 ea 12/02/21 amlodipine 5 mg tablet 5 mg PO DAILY 90 days #90 tabs 12/21/21 azithromycin 250 mg tablet 250 mg PO DIRECTED 5 days #6 01/20/22 tabs blood sugar diagnostic (FreeStyle #100 ea 01/20/22 Lite Strips) blood-glucose meter (FreeStyle #1 ea 01/20/22 Lite Meter kit) lancets 28 gauge (FreeStyle #100 ea 01/20/22 Lancets) pioglitazone 15 mg tablet 15 mg PO DAILY 90 days #90 tabs 02/01/22 Allergies Allergy/AdvReac Type Severity Reaction Status Date / Time seafood Allergy Intermediate Rash Verified 01/20/22 09:24 Review of Systems Review of Systems: Constitutional: No Fever, No Chills ENT/Mouth: No Ear Pain, No Hoarseness, No sore throat Eyes: No Eye Pain, No Swelling, No Redness, No Foreign Body Cardiovascular: Positive Chest Pain, No SOB Respiratory: No Cough, No Dyspnea Gastrointestinal: No Nausea, No Vomiting, No Diarrhea, No abdominal Pain Genitourinary: No Dysuria, No Hematuria Musculoskeletal: No joint pain, No Myalgias, No Joint Swelling Skin: No Skin lacerations, No rash Neuro: No Weakness, No Numbness, No Paresthesias, No Loss of Consciousness, positive Dizziness, No Headache Psych: No Anxiety/Panic, No Depression Heme/Lymph: no easy bruising, no Lymphadenopathy Endocrine: No Polyuria, No Polydipsia Yes all other systems are reviewed and are negative [facility] Past Medical History Attestation statement: The following information was validated with the patient. Source: old records reviewed Medical History Bronchitis Class 2 obesity with body mass index (BMI) of 39.0 to 39.9 in adult Diabetes mellitus Hypertension Mixed hyperlipidemia Morbid obesity Obesity (BMI 35.0-39.9 without comorbidity) WILIAM (obstructive sleep apnea) Urge urinary incontinence Surgical History No pertinent past surgical history Family History Family History Father Essential hypertension Mother No problems noted. Social History Social History Housing: Apartment Alcohol intake: never Patient Tobacco Use Status: Never used Tobacco e-Cigarette/Vaping Use: Never Used Second Hand Smoke Exposure: No Use of substances other than those prescribed or required for medical reasons: No Advance Directives: No Advance Directives Information Provided: No service: No Current occupational status: employed Current occupational exposures/hazards: No Cognitive needs: No Hearing needs: No Vision needs: No Physical Exam Vital Signs: Vital Signs: Last Vital Signs Temp 98.1 F 05/06/22 23:39 Pulse 82 05/07/22 02:00 Resp 16 05/07/22 02:00 BP 127/86 05/07/22 02:00 Pulse Ox 95 05/07/22 02:00 O2 Del Method 05/07/22 02:00 BMI result Body Mass Index 36.6 Appearance: Alert. Oriented X3. No acute distress. Eyes: Pupils equal, round and reactive to light. ENT: Pharynx normal. Neck: Normal inspection. Neck supple. CVS: Tachycardic heart rate and rhythm. Apical pulses equal 2 pulses to extremities. Respiratory: No respiratory distress. Breath sounds normal. Abdomen: Soft and nontender. Obese. Skin: Skin warm and dry. Normal skin color. Normal skin turgor. Extremities: No lower extremity edema. Moves all extremities against resistance. Neuro: No motor deficit. No sensory deficit. Cranial nerves 2-12 intact. Course Course Course Narrative: 37-year-old male presents via EMS for sharp stabbing chest pain radiating to his left arm that was exacerbated by walking around his yard outside. He has had chest for approximately 10 days but this episode of pain was accompanied by dizziness and arm radiation. He was evaluated for chest pain in the past, was asked to follow-up with his primary care physician however stated that he was unable to get an appointment. He does report high blood pressure, hyperlipidemia, and diabetes. He does take his medications but not on a regular basis. Upon presentation, patient is alert oriented x4, appears to be in no distress, nontoxic, afebrile, even unlabored respirations. Patient is tachycardic at 106, is not immunocompromised, denies hormone use or IVDA. Will workup for ACS, order CTA to rule out PE. 01:16 potassium 2.8. Will replete with 40 mEq p.o.. Will repeat with 2nd dose. H&H is 13.3/38.5 consistent with prior values dating back to February 2022. Patient is hemodynamically stable. Glucose is 314, no indication of hyperglycemia at this time. AST 39 ALT 69, alk-phos is negative lipase is negative. ALT has been elevated since 2018 with consistent values. 01:[address] Adams[address] PE pending. MDM - Chest Pain Differential Diagnosis Differential diagnosis: Likely fracture of rib, pneumothorax, unstable angina pectoris, atypical chest pain, st elevation myocardial infarction, costochondritis, chest pain and biliary colic Differential diagnosis: PE Medical Records Data Attestation: I reviewed the patient's medical records. Lab Data Attestation: I reviewed the patient's lab results. Result diagrams: 05/07/22 00:27 05/07/22 00:27 Labs: Lab Results 07/22/22 07/22/22 07/22/22 Range/Units 00:27 00:27 00:27 WBC 8.6 (4.8-10.8) X10*3/uL RBC 4.31 L (4.60-5.80) X10*6/uL Hgb 13.3 L (14.0-18.0) g/dl Hct 38.5 L (42.0-52.0) % MCV 89.3 (80.0-98.0) fL MCH 30.9 (27.0-33.0) pg MCHC 34.5 (31.0-36.0) g/dl RDW 13.2 (11.0-16.0) % Plt Count 158 L (160-400) X10*3/uL MPV 9.6 (9.4-12.4) fL Immature Gran % (Auto) 0.5 H (0.0-0.4) % Neut % (Auto) 53.2 (45-73) % Lymph % (Auto) 37.3 (20-40) % Dickson % (Auto) 7.5 (2-11) % Eos % (Auto) 1.4 (0-4) % Baso % (Auto) 0.1 (0-2) % Lymph # (Auto) 3.2 (1.2-4.9) X10*3/uL Dickson # (Auto) 0.6 (0.1-1.2) X10*3/uL Eos # (Auto) 0.1 (0.0-0.4) X10*3/uL Baso # (Auto) 0.0 (0.0-0.2) X10*3/uL Abs Immat Gran (auto) 0.04 H (0.00-0.03) X10*3/uL Absolute Neuts (auto) 4.6 (2.0-8.3) x10*3/uL Absolute Nucleated RBC 0.000 (0.0-0.012) X10*3/uL Nucleated RBC % (auto) 0.0 (0.0-0.2) /100WBC D-Dimer High Sensitivty NG/ML Sodium 136 (135-145) mmol/L Potassium 2.8 L (3.3-5.1) mmol/L Chloride 100 (96-108) mmol/L Carbon Dioxide 29 (22-29) mmol/L Anion Gap 10 L (12-20) BUN 13 (9-16) mg/dL Creatinine 1.07 (0.5-1.4) mg/dL Estim Creat Clear Calc 118.0 Estimated GFR > 60 Random Glucose 314 H (60-115) mg/dL Calcium 8.8 (8.4-10.2) mg/dL Magnesium 2.2 (1.6-2.6) mg/dL Total Bilirubin 0.8 (0.0-1.0) mg/dL Direct Bilirubin 0.3 (0.0-0.5) mg/dL AST 39 H (5-37) U/L ALT 69 H (0-40) U/L Alkaline Phosphatase 93 (39-117) U/L Troponin I High Sens 7.9 (<3.5-35.0) ng/L Total Protein 6.9 (6.5-8.0) g/dL Albumin 3.8 (3.5-5.0) g/dL Lipase 17 (8-78) U/L 05/07/22 Range/Units 03:07 WBC (4.8-10.8) X10*3/uL RBC (4.60-5.80) X10*6/uL Hgb (14.0-18.0) g/dl Hct (42.0-52.0) % MCV (80.0-98.0) fL MCH (27.0-33.0) pg MCHC (31.0-36.0) g/dl RDW (11.0-16.0) % Plt Count (160-400) X10*3/uL MPV (9.4-12.4) fL Immature Gran % (Auto) (0.0-0.4) % Neut % (Auto) (45-73) % Lymph % (Auto) (20-40) % Dickson % (Auto) (2-11) % Eos % (Auto) (0-4) % Baso % (Auto) (0-2) % Lymph # (Auto) (1.2-4.9) X10*3/uL Dickson # (Auto) (0.1-1.2) X10*3/uL Eos # (Auto) (0.0-0.4) X10*3/uL Baso # (Auto) (0.0-0.2) X10*3/uL Abs Immat Gran (auto) (0.00-0.03) X10*3/uL Absolute Neuts (auto) (2.0-8.3) x10*3/uL Absolute Nucleated RBC (0.0-0.012) X10*3/uL Nucleated RBC % (auto) (0.0-0.2) /100WBC D-Dimer High Sensitivty < 150 NG/ML Sodium (135-145) mmol/L Potassium (3.3-5.1) mmol/L Chloride (96-108) mmol/L Carbon Dioxide (22-29) mmol/L Anion Gap (12-20) BUN (9-16) mg/dL Creatinine (0.5-1.4) mg/dL Estim Creat Clear Calc Estimated GFR Random Glucose (60-115) mg/dL Calcium (8.4-10.2) mg/dL Magnesium (1.6-2.6) mg/dL Total Bilirubin (0.0-1.0) mg/dL Direct Bilirubin (0.0-0.5) mg/dL AST (5-37) U/L ALT (0-40) U/L Alkaline Phosphatase (39-117) U/L Troponin I High Sens (<3.5-35.0) ng/L Total Protein (6.5-8.0) g/dL Albumin (3.5-5.0) g/dL Lipase (8-78) U/L Imaging Data Chest x-ray: Attestation: I personally reviewed and interpreted this imaging study as follows: Radiologist's impression: EXAMINATION: XR CHEST CLINICAL INFORMATION: Chest pain COMPARISON: Chest x-ray 04/26/2022 TECHNIQUE: Frontal view of the chest was obtained.? 0035 hours FINDINGS: No significant abnormality is noted involving the heart, lungs, mediastinum, bony thorax or soft tissues. XR/XR chest 1V IMPRESSION: Unremarkable examination. ECG Data ECG #1: Attestation: I personally reviewed and interpreted this ECG as follows: ECG interpretation date: 05/06/22 ECG interpretation time: 23:38 Prior ECG tracings: available for review Interpretation: Vent. rate 102 BPM OR interval 166 ms QRS duration 86 ms QT/QTc 334/435 ms P-R-T axes 38 29 14 Sinus tachycardia Nonspecific T wave abnormality Abnormal ECG When compared with ECG of 26-APR-2022 12:34, No significant change was found Discharge Plan Discharge Clinical Impression: Hypertension, Atypical chest pain, Acute hypokalemia Patient Disposition: Still a Patient Instructions: Chest Pain (ED), Hypokalemia (ED), Hypertension and Diabetes (ED) Additional Instructions: You were evaluated for chest pain. Your potassium level was low. We gave you 2 doses of potassium while you were in the emergency department. You must follow-up with your primary care provider for repeat chemistry panel. Follow-up in one week. You had chest pain intermittently. Your EKG is normal sinus, your chest x-ray is negative. Your troponins are negative. It is recommend that you follow-up with Cardiology. I referred you to Dr. Amezcua. Please call and request an appointment for evaluation. Your blood pressure was elevated. Please take your medications as prescribed. Again you must follow-up with primary care physician for elevated blood pressures. Thank you for choosing this emergency department for evaluation. Please follow-up with primary care physician as needed. Return to the emergency department for any new, concerning, or worsening symptoms. Prescriptions: No Action amlodipine 5 mg tablet 5 mg PO DAILY 90 Days Qty: 90 1RF pioglitazone 15 mg tablet 15 mg PO DAILY 90 Days Qty: 90 0RF (DME) blood pressure monitor Kit See Rx Instructions .Route Qty: 1 0RF Rx Instructions: As directed azithromycin 250 mg tablet 250 mg PO DIRECTED 5 Days Qty: 6 0RF Rx Instructions: Take 2 tabs the first day, then 1 tab for the next 4 days (DME) blood-glucose meter [FreeStyle Lite Meter] Kit See Rx Instructions .Route Qty: 1 0RF Rx Instructions: As directed (DME) FreeStyle Lite Strips Strip See Rx Instructions .Route Qty: 100 2RF Rx Instructions: Use 1 test strip once a day (DME) lancets [FreeStyle Lancets] 28 gauge misc See Rx Instructions .Route Qty: 100 1RF Rx Instructions: Use 1 lancet once a day Referrals: Kvng Amezcua MD [Physician] - 2 weeks (chest pain, htn, hld, dm2, wiliam)
[2022-05-07] VITALS: BP 111/72; PULSE 98; RESP 20
[2022-05-07 00:33] LABS: MANUAL DIFF FLAG NO
[2022-05-07 00:35] LABS: Basophils Percent Auto 0.1 % (0-2); Eosinophils Absolute Auto 0.1 X10*3/uL (0.0-0.4); Eosinophils Percent Auto 1.4 % (0-4); Hematocrit 38.5 % (42.0-52.0); Hemoglobin 13.3 g/dl (14.0-18.0); Imm Gran Abs Auto 0.04 X10*3/uL (0.00-0.03); Imm Gran Pct Auto 0.5 % (0.0-0.4); Lymphocytes Absolute Auto 3.2 X10*3/uL (1.2-4.9); Lymphocytes Percent Auto 37.3 % (20-40); Mean Corpuscular HGB Conc 34.5 g/dl (31.0-36.0); Mean Corpuscular Hemoglobin 30.9 pg (27.0-33.0); Mean Corpuscular Volume 89.3 fL (80.0-98.0); Mean Platelet Volume 9.6 fL (9.4-12.4); Monocytes Absolute Auto 0.6 X10*3/uL (0.1-1.2); Monocytes Percent Auto 7.5 % (2-11); Neutrophils Absolute Auto 4.6 x10*3/uL (2.0-8.3); Neutrophils Percent Auto 53.2 % (45-73); Platelet Count 158 X10*3/uL (160-400); Red Blood Count 4.31 X10*6/uL (4.60-5.80); Red Cell Distribution Width 13.2 % (11.0-16.0); White Blood Count 8.6 X10*3/uL (4.8-10.8)
--- NOTE | 2022-05-07 00:39 | PC.NURSE ---
Pt received 324 mg aspirin en route by EMS. WEIGHER AND CRUSHER Alejandroy verbally ordered to hold medication at this time.
[2022-05-07 00:57] LABS: Troponin-I High Sensitivity 7.9 ng/L (<3.5-35.0)
[2022-05-07 01:08] LABS: Alanine Aminotransferase 69 U/L (0-40); Albumin Level 3.8 g/dL (3.5-5.0); Alkaline Phosphatase 93 U/L (39-117); Anion Gap 10 (12-20); Aspartate Amino Transferase 39 U/L (5-37); Bilirubin Direct 0.3 mg/dL (0.0-0.5); Bilirubin Total 0.8 mg/dL (0.0-1.0); Blood Urea Nitrogen 13 mg/dL (9-16); Calcium 8.8 mg/dL (8.4-10.2); Carbon Dioxide 29 mmol/L (22-29); Chloride 100 mmol/L (96-108); Estimated Glomerular Filt Rate > 60; Glucose Random 314 mg/dL (60-115); Lipase 17 U/L (8-78); Magnesium 2.2 mg/dL (1.6-2.6); Potassium 2.8 mmol/L (3.3-5.1); Sodium 136 mmol/L (135-145); Total Protein 6.9 g/dL (6.5-8.0)
[2022-05-07] MEDS: iohexoL 350 MG/ML 100 ML INFUS..BTL 85 ML IV (01:43)
[2022-05-07] MEDS: Potassium Chloride Packet 20 MEQ PACKET 40 MEQ PO ×2 (01:44→02:24)
[2022-05-07] MEDS: ondansetron HCL 4 MG/2 ML VIAL IVPUSH (01:55)
[2022-05-07 02:00] VITALS: BP 127/86; PULSE 82; RESP 16; O2SAT 95
[2022-05-07 03:22] LABS: D Dimer High Sensitivity < 150 NG/ML
[2022-05-07 03:31] LABS: Troponin-I High Sensitivity 7.6 ng/L (<3.5-35.0)
== END 2022-05-07 04:15 | disposition home or self-care (01) ==
PROVIDERS: Nurse Practitioner Family; Emergency Provider Emergency Medicine
DX: R07.89 Other chest pain (principal); I10 Essential (primary) hypertension; E87.6 Hypokalemia; E11.9 Type 2 diabetes mellitus without complications; E78.2 Mixed hyperlipidemia; E66.01 Morbid (severe) obesity due to excess calories; Z68.36 Body mass index [BMI] 36.0-36.9, adult
CPT/HCPCS: 36415; 71045; 71275; 80048; 80076; 83690; 83735; 84484; 85025; 85379; 93005; 96374; 99284; 99285; J2405; Q9967

== ENCOUNTER → 2022-05-18 13:11 | Outpatient (BNVA) | payer OTHER, SELFPAY | PROVIDERS: PCP Internal Medicine; Referring Provider Internal Medicine; Visit Provider Nurse Practitioner Family | DX: R07.89 Other chest pain (principal); R06.02 Shortness of breath; I10 Essential (primary) hypertension; E66.9 Obesity, unspecified; Z68.39 Body mass index [BMI] 39.0-39.9, adult; E78.2 Mixed hyperlipidemia | CPT/HCPCS: 99202 ==

== ENCOUNTER → 2022-07-05 08:54 | Outpatient (REF) | payer OTHER, SELFPAY ==
--- NOTE | 2022-07-05 08:56 | CA_ITS ---
Transthoracic Echocardiogram Patient (Last, First, Middle): Yang Truong, Gender: Male Date of : 1985 Age: 37 Procedure Date: 07/05/2022 Procedure Type: Transthoracic Echocardiogram Location: OP Height: 160.02 cm Weight: 170.1 kg BSA: 2.53 m2 Heart Rate: 83 bpm BP: 145 / 75 mmHg House Superintendent: MARIO Referring MD: Anna Paula EMERGENCY ROOM PHYSICIAN ASSISTANT-C Symptoms: R07.89 - Other chest pain Study Quality: Adequate ECG Rhythm: Sinus Conclusions: - The left ventricular systolic function is normal. The calculated ejection fraction is 62% by biplane method. - There is moderately increased left ventricular wall thickness. - No obvious valvular pathology seen on this study. Findings Left Ventricle Normal left ventricular cavity size. There is moderately increased left ventricular wall thickness. The left ventricular systolic function is normal. The calculated ejection fraction is 62% by biplane method. There is no evidence of regional wall motion abnormalities. Diastolic function is normal for age. Right Ventricle Normal right ventricular cavity size and systolic function. Atria Both atria are normal in size. Aortic Valve There is a normal trileaflet aortic valve. There is no aortic valve stenosis. There is no aortic valve regurgitation. Mitral Valve The mitral valve appears normal. There is trace mitral valve regurgitation. There is no mitral valve stenosis. Pulmonic Valve The pulmonic valve is likely normal. Tricuspid Valve Normal tricuspid valve structure. There is trace tricuspid valve regurgitation. The pulmonary artery systolic pressure is normal. Great Vessels The aortic annulus, sinuses of valsalva, and asc aorta are normal in size. Venous The inferior vena cava was not well visualized. The inferior vena cava is normal in size and collapses greater than 50% with inspiration. Pericardium/Pleural Widened pericardial space, unable to distinguish between adipose tissue and effusion. Prior Study Comparison No significant change compared to prior study dated: 08/04/2016. Recommendations, Care & Conclusions No obvious valvular pathology seen on this study. Measurements 2D Linear Measurements IVSd: 1.53 0.6-0.9/0.6-1.0 cm LVIDd: 3.80 3.9-5.3/4.2-5.9 cm LVIDd Index: 1.50 2.4-3.2/2.2-3.1 cm/m2 LVIDs: 2.49 2.0-3.6 cm LVPWd: 1.54 0.7-1.1 cm LA Diam: 3.90 2.7-3.8/3.0-4.0 cm LAIDs Index: 1.54 1.5-2.3 cm/m2 LV Mass: 280.15 67-162/88-224 g LV Mass Index: 110.73 43-95/49-115 g/m2 LVOT Diam: 2.30 3.0+(-)1.3 cm 2D Systolic Function EF 4C: 55.00 >55% EF 2C: 66.40 >55% EF BiP: 62.40 >55% Mitral Valve MV Pk E: 0.92 MV PK A: 0.69 MV Decel Time: 179.00 E/A: 1.30 E'Lateral: 9.68 E'Medial: 6.64 E/E' Med: 13.80 E/E' Lat: 9.50 PHT: 52.00 MVA PHT: 4.23 Decel [place]: 5.13 Aortic Valve AoV Pk Jelani: 1.42 AoV Mn Jelani: 1.07 AoV VTI: 0.28 AoV Pk Grad: 8.00 Aov Mn Grad: 5.00 DAMARIS Cont.VTI: 2.95 LVOT LVOT Pk Jelani: 1.16 LVOT Mn Jelani: 0.79 LVOT VTI: 0.20 LVOT Pk Grad: 5.00 LVOT Mn Grad: 3.00 LVOT Diam: 2.30 LVOT Area: 4.15 Diastolic Function MV Pk E: 0.92 MV Pk A: 0.69 E/A: 1.30 E'Medial: 6.64 E/E' Med: 13.80 E' Laterial: 9.68 E/E' Lat: 9.50 Right Ventricle TAPSE (mm): 24.40 TVS' Jelani: 13.10 Tricuspid Valve RA Press: 3.00 Great Vessels Aorta Sinus of Valsalva: 3.30 2.0-3.5 cm Ao Asc: 3.30 2.1-3.4 cm Pulmonary Valve PV Pk Jelani: 1.07 Peak PV Grad: 5.00 Updated in Other Vendor System with Status of Final Gino Webb MD electronically signed on 07/05/2022 12:02:48 PM with status of Final
--- NOTE | 2022-07-05 08:56 | CA_ITS ---
Acquisition Time: 2022-07-05 10:34:23 Total Exercise Time: 00:03:44 Test Indications: CHEST PAIN Medications: METFORMIN AMLODIPINE Protocol: JULIA Max HR: 122 BPM 66% of Pred: 184 BPM Max BP: 144/090 mmHG Max Work Load: 5.4 METS Exercise stress test with exercise 3 min 44 sec of Julia protocol, achieving 66% MPHR with report of 8/10 pulling sensation in mid chest with request to stop, without arrythmia, with normotensive response to exercise, with nondiagnostic EKG for ischemia due to suboptimal heart rate. In recovery his chest discomfort gradually improved and resolved. Will order a pharmacological nuclear stress test for further evaluation. Test reviewed with Dr Webb. Referred By: Anna Paula Overread By: ANNA PAULA
== END ==
LOC: HO.CARD 08:54
PROVIDERS: Absent Provider Internal Medicine; PCP Internal Medicine; Visit Provider Nurse Practitioner Family
DX: R06.02 Shortness of breath (principal); R07.89 Other chest pain
CPT/HCPCS: 93017; 93306

== ENCOUNTER 2022-07-13 01:58 | Emergency (ER) | payer OTHER, SELFPAY ==
[2022-07-13 02:04] VITALS: BP 170/114; PULSE 88; RESP 19; TEMP 36.7; O2SAT 98; BMI 30.1
[2022-07-13 06:36] VITALS: BP 153/114; PULSE 78; RESP 16; O2SAT 98
--- NOTE | 2022-07-13 08:44 | ED.MALEGU ---
HPI - Male Genitourinary General Chief complaint: Urogenital-Male Stated complaint: ? infection on private part Source: patient Mode of arrival: ambulatory Limitations: no limitations History of Present Illness HPI Narrative: 37-year-old male history diabetes and hypertension presents to ED for for forskin swelling, itching, white cheesy collection arond foreskin for the past week. Patient denies any sexual activity for the past year. Patient states no history of STD. Patient denies any recent trauma to the genital area. Patient denies any abdominal pain, nausea, vomiting, flank pain, fever, or chills. Related Data Home Medications Medication Instructions Recorded Confirmed metformin 500 mg tablet 500 mg PO BIDWMEAL 05/07/22 05/18/22 Previous Rx's Medication Instructions Recorded blood pressure monitor #1 ea 12/02/21 amlodipine 5 mg tablet 5 mg PO DAILY 90 days #90 tabs 12/21/21 blood sugar diagnostic (FreeStyle #100 ea 01/20/22 Lite Strips) blood-glucose meter (FreeStyle #1 ea 01/20/22 Lite Meter kit) lancets 28 gauge (FreeStyle #100 ea 01/20/22 Lancets) famotidine 20 mg tablet 20 mg PO BEDTIME #30 tabs 05/07/22 clotrimazole 1 % topical cream 1 appl topical BID 2 weeks #45 07/13/22 grams hydrocortisone 1 % topical cream 1 appl topical BID PRN rash 2 07/13/22 weeks #28.4 grams Allergies Allergy/AdvReac Type Severity Reaction Status Date / Time seafood Allergy Intermediate Rash Verified 05/07/22 08:50 Review of Systems Review of Systems: foreskin irratation, itching, white cottage cheese collection Yes all other systems are reviewed and are negative [facility] Past Medical History Medical History Bronchitis Diabetes mellitus Essential hypertension Headache Mixed hyperlipidemia Morbid obesity Obesity (BMI 35.0-39.9 without comorbidity) KUNAL (obstructive sleep apnea) Urge urinary incontinence Surgical History No pertinent past surgical history Family History Family History Father Essential hypertension Mother No problems noted. Paternal Uncle Myocardial infarct Social History Social History Housing: Apartment Alcohol intake: never Patient Tobacco Use Status: Never used Tobacco e-Cigarette/Vaping Use: Never Used Second Hand Smoke Exposure: No Advance Directives: No Advance Directives Information Provided: No service: No Current occupational status: employed Current occupational exposures/hazards: No Cognitive needs: No Hearing needs: No Vision needs: No Physical Exam Vital Signs: Vital Signs: Last Vital Signs Temp 98.0 F 07/13/22 02:04 Pulse 78 07/13/22 06:36 Resp 16 07/13/22 06:36 BP 153/114 H 07/13/22 06:36 Pulse Ox 98 07/13/22 06:36 O2 Del Method 07/13/22 06:36 BMI result Body Mass Index 30.1 Const: General: cooperative, healthy appearing, comfortable, no acute distress, well developed, alert, awake and Physically active Orientation/consciousness: patient oriented x3 HEENT: Head: Yes normal to inspection, Yes No palpable skull fracture present, Yes normocephalic, Yes atraumatic and No abrasion Eyes: General: appearance normal, both eyes and all related structures Neck: Neck: Yes normal visual inspection, Yes full ROM, Yes no lymphadenopathy, Yes no meningeal signs, Yes trachea midline, Yes supple, No anterior neck swelling and No tender Chest: Chest palpation & inspection: normal inspection of the chest and normal palpation of entire chest wall Resp: Effort & Inspection: normal respiratory effort and able to speak in complete sentences Auscultation: clear to auscultation bilaterally Cardio: Jugular venous distension: no JVD Heart sounds: S1 normal heart sound present and S2 normal heart sound present GI: Inspection: Yes normal to inspection and No abdominal wall ecchymosis Palpation (GI): Soft to palpation, not firm, nontender, no guarding and not rigid : Other: positive foreskin near head glans penis looks swollen, scaly rash, and white cottage collection. negative for vesicular lesions, urethral meatus discharge, chancre, chancroid, or ecchymosis. Foreskin able to retract. scrotum and testicles is normal General: No CVA tenderness and Yes no CVA tenderness Penis: uncircumcised Back/Spine/Pelvis: Back: no CVA tenderness, No CVA tenderness and No back tenderness Skin: General skin exam: no rashes or lesions noted, elasticity normal and turgor normal Neuro: General: patient oriented x3, gait normal, no meningeal signs and CN's II-XI intact bilaterally Cranial nerves: Yes CN's II-XII intact bilaterally Extrem: General: Yes normal to inspection and Yes full ROM Psych: Appearance: grossly normal, well kempt and not disheveled Course Course Course Narrative: Patient well-appearing. Patient is not in distress. Reevaluation(s) Reevaluation #1: History and physical exam indicating balanitis caused by Marion/fungus. Patient high risk for Marion fungus balanitis due to history of diabetes. Patient informed due to him being diabetic he has an increase for balanitis. Patient educated on keeping his glucose under control. Patient admits not taking his blood pressure medications this morning. Patient informed to be compliant with blood pressure medication. Negative for any neuro deficits. Time: 09:15 MDM - Male Genitourinary MDM Narrative Medical decision making narrative: Balantitis Discharge Plan Discharge Clinical Impression: Balanitis Patient Disposition: Home, Self-Care Instructions: Balanitis (ED) Additional Instructions: Please follow-up with the primary care provider. Return to the ED immediately for swelling, redness, testicular pain, urethral discharge trauma, fever, chills, abdominal pain, flank pain, nausea, vomiting, or any other concerning symptoms. Please be compliant with her blood pressure medications. Noncompliance with the blood pressure medication can lead to stroke, heart attack, even . Diabetes is an increased risk for cancer balanitis. Recommend diet control and compliance with diabetes medication Prescriptions: New clotrimazole 1 % cream 1 appl topical BID 14 Days Qty: 45 0RF hydrocortisone 1 % cream 1 appl topical BID PRN (Reason: rash) 14 Days Qty: 28.4 0RF No Action amlodipine 5 mg tablet 5 mg PO DAILY 90 Days Qty: 90 1RF (DME) blood pressure monitor Kit See Rx Instructions .Route Qty: 1 0RF Rx Instructions: As directed metformin 500 mg tablet 500 mg PO BIDWMEAL famotidine 20 mg tablet 20 mg PO BEDTIME Qty: 30 1RF (DME) blood-glucose meter [FreeStyle Lite Meter] Kit See Rx Instructions .Route Qty: 1 0RF Rx Instructions: As directed (DME) FreeStyle Lite Strips Strip See Rx Instructions .Route Qty: 100 2RF Rx Instructions: Use 1 test strip once a day (DME) lancets [FreeStyle Lancets] 28 gauge misc See Rx Instructions .Route Qty: 100 1RF Rx Instructions: Use 1 lancet once a day Interventions: ED Discharge Assessment Last Done: 07/13/22 09:46 Discharge Date/Time: 07/13/22 09:47 Print Language: Trinidadian
== END 2022-07-13 09:47 | disposition home or self-care (01) ==
PROVIDERS: Emergency Provider Emergency Medicine; PCP Internal Medicine
DX: N48.1 Balanitis (principal)
CPT/HCPCS: 99283

== ENCOUNTER → 2022-07-23 07:01 | Outpatient (REF) | payer OTHER, SELFPAY ==
--- NOTE | ~2022-07-23 | NM_ITS ---
Lexiscan Myocardial perfusion study Indication: Chest pain, assess for coronary disease and ischemia Technique: The patient was brought in for a Lexiscan perfusion study on 07/23/2022 and was injected 0.4 mg of Lexiscan intravenously. Within a minute of this injection 40 mCi of sestamibi was given intravenously. Images were obtained using the SPECT gamma camera interlaced with the gating device. Images were obtained in supine position. As the patient could not return, resting part was not completed. Several attempts made. Images were processed with the software and compared side to side in short axis, horizontal long axis and vertical long axis views. Findings: Raw acquisition reviewed. Arms by the patient's side. The stress perfusion study showed no significant perfusion abnormality. Both uncorrected as well as CT attenuation corrected images were reviewed. The gated study shows normal LV systolic function with calculated LVEF of 53%. LV cavity is normal in size. The gated study shows normal wall thickening and contraction of segments. Resting perfusion not completed as patient did not return. The findings are consistent with no significant perfusion abnormality during stress only acquisition. NM/NM vinicio perf SPECT rest or str Impression: 1. Myocardial perfusion imaging study shows likely normal perfusion, based on stress only acquisition. Patient did not return for resting images. 2. Gated LVEF is 53% during stress. EKG component of the test reported separately.
--- NOTE | 2022-07-23 07:06 | CA_ITS ---
Acquisition Time: 2022-07-23 08:11:59 Total Exercise Time: 00:02:00 Test Indications: CP Medications: SEE CHART Protocol: LEXISCAN Max HR: 105 BPM 57% of Pred: 184 BPM Max BP: 142/084 mmHG Max Work Load: 1.0 METS Pharmacological stress test with Lexiscan injection, while sitting and kicking his legs, without anginal symptoms, without arrythmia, with normotensive response to injection, with nondiagnostic EKG for ischemia. Nuclear images pending. Test reviewed with Dr Atkinson Referred By: Anna Paula Overread By: ANNA PAULA
== END ==
LOC: HO.CARD 07:01
PROVIDERS: PCP Internal Medicine; Visit Provider Nurse Practitioner Family
DX: R07.89 Other chest pain (principal); R94.39 Abnormal result of other cardiovascular function study
CPT/HCPCS: 78451; 93017; A9500; J0280; J2785

== ENCOUNTER 2022-07-23 14:56 | Emergency (ER) | payer OTHER, SELFPAY ==
[2022-07-23 15:09] VITALS: BP 188/116; PULSE 100; RESP 20; TEMP 36.6; O2SAT 100; BMI 47.8
--- NOTE | 2022-07-23 15:09 | ECG_ITS ---
Test Reason : CHEST PAIN Blood Pressure : / mmHG Vent. Rate : 098 BPM Atrial Rate : 098 BPM P-R Int : 182 ms QRS Dur : 082 ms QT Int : 332 ms P-R-T Axes : 052 022 008 degrees QTc Int : 423 ms Normal sinus rhythm Nonspecific ST abnormality Abnormal ECG When compared with ECG of 06-MAY-2022 23:38, Nonspecific T wave abnormality no longer evident in Anterior leads Nonspecific ST abnormality is now Present Referred By: Generic ED Physician Electronically Signed By:SELMA JACOBS
[2022-07-23 15:34] LABS: MANUAL DIFF FLAG NO
[2022-07-23 15:36] LABS: Basophils Percent Auto 0.1 % (0-2); Eosinophils Absolute Auto 0.1 X10*3/uL (0.0-0.4); Eosinophils Percent Auto 0.9 % (0-4); Hematocrit 41.3 % (42.0-52.0); Hemoglobin 14.2 g/dl (14.0-18.0); Imm Gran Abs Auto 0.04 X10*3/uL (0.00-0.03); Imm Gran Pct Auto 0.5 % (0.0-0.4); Lymphocytes Absolute Auto 2.2 X10*3/uL (1.2-4.9); Lymphocytes Percent Auto 28.7 % (20-40); Mean Corpuscular HGB Conc 34.4 g/dl (31.0-36.0); Mean Corpuscular Hemoglobin 31.1 pg (27.0-33.0); Mean Corpuscular Volume 90.4 fL (80.0-98.0); Mean Platelet Volume 9.8 fL (9.4-12.4); Monocytes Absolute Auto 0.5 X10*3/uL (0.1-1.2); Monocytes Percent Auto 6.4 % (2-11); Neutrophils Absolute Auto 4.8 x10*3/uL (2.0-8.3); Neutrophils Percent Auto 63.4 % (45-73); Platelet Count 157 X10*3/uL (160-400); Red Blood Count 4.57 X10*6/uL (4.60-5.80); Red Cell Distribution Width 13.3 % (11.0-16.0); White Blood Count 7.6 X10*3/uL (4.8-10.8)
[2022-07-23 15:59] LABS: Anion Gap 13 (12-20); Blood Urea Nitrogen 8 mg/dL (9-16); Calcium 9.8 mg/dL (8.4-10.2); Carbon Dioxide 27 mmol/L (22-29); Chloride 100 mmol/L (96-108); Creatinine Clr Calc Pharmacy 115.4; Estimated Glomerular Filt Rate > 60; Glucose Random 388 mg/dL (60-115); Sodium 136 mmol/L (135-145)
--- NOTE | 2022-07-23 21:21 | ED.DIZZY ---
HPI - Dizziness General Chief Complaint: Dizziness Stated Complaint: dizziness/headaches/weakness Time Seen by Provider: 07/23/22 21:06 Source: patient Mode of arrival: ambulatory Limitations: no limitations History of Present Illness HPI Narrative: 37-year-old male status post stress test today which is read as normal with no EKG changes patient did have a nuclear study study done as well which has not been read he says since then he has felt tired and weak has occasional dizziness and palpitations patient denies falls or injuries no chest pain cough nausea vomiting or diarrhea. MD elicited complaint: dizziness Related Data Home Medications Medication Instructions Recorded Confirmed metformin 500 mg tablet 500 mg PO BIDWMEAL 05/07/22 05/18/22 Previous Rx's Medication Instructions Recorded blood pressure monitor #1 ea 12/02/21 amlodipine 5 mg tablet 5 mg PO DAILY 90 days #90 tabs 12/21/21 blood sugar diagnostic (FreeStyle #100 ea 01/20/22 Lite Strips) blood-glucose meter (FreeStyle #1 ea 01/20/22 Lite Meter kit) lancets 28 gauge (FreeStyle #100 ea 01/20/22 Lancets) famotidine 20 mg tablet 20 mg PO BEDTIME #30 tabs 05/07/22 clotrimazole 1 % topical cream 1 appl topical BID 2 weeks #45 07/13/22 grams hydrocortisone 1 % topical cream 1 appl topical BID PRN rash 2 07/13/22 weeks #28.4 grams CPAP Full FACE MASK medium 14 cm #1 ea 07/21/22 H2O humidified AIR Allergies Allergy/AdvReac Type Severity Reaction Status Date / Time seafood Allergy Intermediate Rash Verified 05/07/22 08:50 Review of Systems Review of Systems: Review of systems: General: Patient denies any fever chills recent illness or falls Musculoskeletal: Denies back pain or body aches or other injuries HEENT: denies headache, runny nose, ear pain Respiratory: denies shortness of breath, cough Cardiovascular: no chest pain or palpitations : denies dysuria, frequency Abdomen: no nausea vomiting denies abdominal pain Extremities: no swelling, no pain Skin: no diaphoresis Yes all other systems are reviewed and are negative [facility] Past Medical History Medical History (Updated 07/23/22 @ 21:34 by Andre Elena DO) Bronchitis Diabetes mellitus Essential hypertension Headache Mixed hyperlipidemia Morbid obesity Obesity (BMI 35.0-39.9 without comorbidity) KUNAL (obstructive sleep apnea) Urge urinary incontinence Surgical History No pertinent past surgical history Family History Family History Father Essential hypertension Mother No problems noted. Paternal Uncle Myocardial infarct Social History Social History Housing: Apartment Alcohol intake: never Patient Tobacco Use Status: Never used Tobacco e-Cigarette/Vaping Use: Never Used Second Hand Smoke Exposure: No Advance Directives: No Advance Directives Information Provided: Yes service: No Current occupational status: employed Current occupational exposures/hazards: No Cognitive needs: No Hearing needs: No Vision needs: No Physical Exam Vital Signs: Vital Signs: Last Vital Signs Temp 97.8 F 07/23/22 15:09 Pulse 100 07/23/22 15:09 Resp 20 07/23/22 15:09 BP 188/116 H 07/23/22 15:09 Pulse Ox 100 07/23/22 15:09 O2 Del Method 07/23/22 15:09 BMI result Body Mass Index 47.8 General: Well-appearing well-nourished in no signs of distress HEENT: Normocephalic atraumatic Neck: No signs of JVD, no masses no tenderness or lymphadenopathy Cardiovascular: Regular rate and rhythm Respiratory: Clear to auscultation bilaterally Abdomen: Soft nontender no masses Extremities: Normal pedal pulses no signs of edema Skin: Dry warm no rashes Back: No tenderness full ROM MDM - Dizziness MDM Narrative Medical decision making narrative: Patient status post normal stress test today do not think there is anything going on with his heart at this time labs were checked troponin was not sent or a chest x-ray his blood pressure is elevated his blood sugar is again uncontrolled which has been common for him he is presented to the ER. I will do that for give the patient Differential Diagnosis Differential diagnosis: Likely adverse reaction to drug Medical Records Attestation: I reviewed the patient's medical records. Lab Data Attestation: I reviewed the patient's lab results. Result diagrams: 07/23/22 15:30 07/23/22 15:30 Labs: Lab Results 07/23/22 07/23/22 Range/Units 15:30 15:30 WBC 7.6 (4.8-10.8) X10*3/uL RBC 4.57 L (4.60-5.80) X10*6/uL Hgb 14.2 (14.0-18.0) g/dl Hct 41.3 L (42.0-52.0) % MCV 90.4 (80.0-98.0) fL MCH 31.1 (27.0-33.0) pg MCHC 34.4 (31.0-36.0) g/dl RDW 13.3 (11.0-16.0) % Plt Count 157 L (160-400) X10*3/uL MPV 9.8 (9.4-12.4) fL Immature Gran % (Auto) 0.5 H (0.0-0.4) % Neut % (Auto) 63.4 (45-73) % Lymph % (Auto) 28.7 (20-40) % Williams % (Auto) 6.4 (2-11) % Eos % (Auto) 0.9 (0-4) % Baso % (Auto) 0.1 (0-2) % Lymph # (Auto) 2.2 (1.2-4.9) X10*3/uL Williams # (Auto) 0.5 (0.1-1.2) X10*3/uL Eos # (Auto) 0.1 (0.0-0.4) X10*3/uL Baso # (Auto) 0.0 (0.0-0.2) X10*3/uL Abs Immat Gran (auto) 0.04 H (0.00-0.03) X10*3/uL Absolute Neuts (auto) 4.8 (2.0-8.3) x10*3/uL Absolute Nucleated RBC 0.000 (0.0-0.012) X10*3/uL Nucleated RBC % (auto) 0.0 (0.0-0.2) /100WBC Sodium 136 (135-145) mmol/L Potassium 4.0 D (3.3-5.1) mmol/L Chloride 100 (96-108) mmol/L Carbon Dioxide 27 (22-29) mmol/L Anion Gap 13 (12-20) BUN 8 L (9-16) mg/dL Creatinine 1.04 (0.5-1.4) mg/dL Estim Creat Clear Calc 115.4 Estimated GFR > 60 Random Glucose 388 H* (60-115) mg/dL Calcium 9.8 D (8.4-10.2) mg/dL ECG Data Attestation: I personally reviewed and interpreted this ECG as follows: ECG interpretation date: 07/23/22 ECG interpretation time: 21:21 Interpretation: Rate 98 normal sinus rhythm normal intervals no signs of ischemia Discharge Plan Discharge Clinical Impression: Adverse reaction to drug, Heart palpitations, Dizziness Patient Disposition: Home, Self-Care Instructions: Dizziness (ED), MUGA Scan (DC), Heart Palpitations (ED) Additional Instructions: Please call to follow up with your weight tester the non nuclear portion of your stress test was normal. Your symptoms are likely physician relations representative of a reaction from the medication used for the stress test. Please attempt to take it easy the next few days. If you have any other concerns please return to the ED. Prescriptions: No Action amlodipine 5 mg tablet 5 mg PO DAILY 90 Days Qty: 90 1RF (DME) CPAP Full FACE MASK medium 14 cm H2O humidified AIR See Rx Instructions .Route .MEDSUPPLY Qty: 1 0RF Rx Instructions: As directed clotrimazole 1 % cream 1 appl topical BID 14 Days Qty: 45 0RF hydrocortisone 1 % cream 1 appl topical BID PRN (Reason: rash) 14 Days Qty: 28.4 0RF (DME) blood pressure monitor Kit See Rx Instructions .Route Qty: 1 0RF Rx Instructions: As directed metformin 500 mg tablet 500 mg PO BIDWMEAL famotidine 20 mg tablet 20 mg PO BEDTIME Qty: 30 1RF (DME) blood-glucose meter [FreeStyle Lite Meter] Kit See Rx Instructions .Route Qty: 1 0RF Rx Instructions: As directed (DME) FreeStyle Lite Strips Strip See Rx Instructions .Route Qty: 100 2RF Rx Instructions: Use 1 test strip once a day (DME) lancets [FreeStyle Lancets] 28 gauge misc See Rx Instructions .Route Qty: 100 1RF Rx Instructions: Use 1 lancet once a day
--- NOTE | 2022-07-23 21:34 | ECG_ITS ---
Test Reason : CHEST PAIN Blood Pressure : / mmHG Vent. Rate : 085 BPM Atrial Rate : 085 BPM P-R Int : 178 ms QRS Dur : 082 ms QT Int : 330 ms P-R-T Axes : 049 045 026 degrees QTc Int : 392 ms Normal sinus rhythm Normal ECG When compared with ECG of 23-JUL-2022 15:18, No significant change was found Referred By: Andre Elena Electronically Signed By:KATE GOOD MD
[2022-07-23 21:46] VITALS: BP 139/91; PULSE 84; RESP 16; TEMP 36.9; O2SAT 96
[2022-07-23 22:05] LABS: Troponin-I High Sensitivity 4.2 ng/L (<3.5-35.0)
[2022-07-23 22:07] LABS: Glucose, Whole Blood 400 mg/dL (60-115)
[2022-07-23] MEDS: Insulin Lispro 100 UNIT/ML 3 ML VIAL SUBCUT (22:40)
[2022-07-23 22:41] VITALS: BP 129/78; PULSE 81; RESP 14; O2SAT 99
== END 2022-07-23 22:42 | disposition home or self-care (01) ==
PROVIDERS: Emergency Provider Student in an Organized Health Care Education/Training Program; PCP Internal Medicine
DX: R00.2 Palpitations (principal); R42 Dizziness and giddiness; Z79.899 Other long term (current) drug therapy
CPT/HCPCS: 36415; 78451; 80048; 82947; 84484; 85025; 93005; 93017; 99283; 99284; A9500; J2785

== ENCOUNTER 2022-11-25 10:52 | Emergency (ER) | payer OTHER, SELFPAY ==
--- NOTE | ~2022-11-25 | XR_ITS ---
EXAMINATION: XR CHEST CLINICAL INFORMATION: Chest pain COMPARISON: None TECHNIQUE: Frontal view of the chest was obtained. FINDINGS: The lungs are well-expanded and clear of acute process. The heart size and pulmonary vascularity are normal. No gross bony abnormality seen. XR/XR chest 1V IMPRESSION: Unremarkable chest exam.
--- NOTE | 2022-11-25 10:56 | ECG_ITS ---
Test Reason : chest pain Blood Pressure : / mmHG Vent. Rate : 082 BPM Atrial Rate : 082 BPM P-R Int : 178 ms QRS Dur : 082 ms QT Int : 354 ms P-R-T Axes : 041 017 011 degrees QTc Int : 413 ms Normal sinus rhythm Cannot rule out Anterior infarct , age undetermined Abnormal ECG When compared with ECG of 23-JUL-2022 21:34, No significant change was found Referred By: Nazanin Velazquez Electronically Signed By:CLEMENCIA DOYLE MD
[2022-11-25 10:57] VITALS: BP 153/106; PULSE 81; RESP 19; TEMP 36; O2SAT 98; BMI 41.3
--- NOTE | 2022-11-25 11:04 | ED_ITS ---
HPI - General Adult General Chief complaint: General Medical <FIDE Hall - Last Filed: 11/25/22 11:05> Stated complaint: chest pain multip issues <FIDE Hall - Last Filed: 11/25/22 11:05> Time Seen by Provider: 11/25/22 12:17 <FIDE Hall - Last Filed: 11/25/22 11:05> Source: patient <Jack Luevano MD - Last Filed: 11/25/22 12:26> Mode of arrival: ambulatory <Jack Luevano MD - Last Filed: 11/25/22 12:26> Limitations: no limitations <Jack Luevano MD - Last Filed: 11/25/22 12:26> History of Present Illness HPI narrative: 37-year-old male presents with chest pain. The chest pain is sternal in nature. Pain does not radiate. It is every day. He is not to stated with exam do. Is worse with deep inspiration. Also notices it more prominently at night. Describes the pain as a sharp. It is not associated with exertion. He denies any lower extremity edema, history of pulmonary emboli or DVT. Patient denies any recent fevers, chills, cough, mucus production, shortness of breath, shortness of breath exertion. There is no prior treatment. Patient is nervous that this pain will not end. <Jack Luevano MD - Last Filed: 11/25/22 12:26> Related Data Home medications: Home Medications Medication Instructions Recorded Confirmed escitalopram oxalate 10 mg tablet 15 mg PO DAILY 08/26/22 11/25/22 hydroxyzine pamoate 50 mg capsule 50 mg PO Q6H PRN anxiety 08/26/22 11/25/22 Previous Rx's Medication Instructions Recorded blood-glucose meter (FreeStyle #1 ea 01/20/22 Lite Meter kit) clotrimazole 1 % topical cream 1 appl topical BID 2 weeks #45 07/13/22 grams hydrocortisone 1 % topical cream 1 appl topical BID PRN rash 2 07/13/22 weeks #28.4 grams CPAP Full FACE MASK medium 14 cm #1 ea 08/26/22 H2O humidified AIR pen needle, diabetic 31 gauge x #100 ea 08/26/22 5/16 (1st Tier Unifine Pentips) famotidine 20 mg tablet 20 mg PO BEDTIME #30 tabs 09/25/22 amlodipine 5 mg tablet 5 mg PO DAILY 90 days #90 tabs 09/27/22 albuterol sulfate 2.5 mg/3 mL 2.5 mg (3 mL) inhalation Q4-6H PRN 11/16/22 (0.083 %) solution for nebulization shortness of breath or wheezing 30 days #75 mL blood pressure monitor #1 ea 11/16/22 blood sugar diagnostic (FreeStyle #100 ea 11/16/22 Lite Strips) insulin glargine 100 unit/mL (3 10 unit (0.1 mL) subcut QPM 90 11/16/22 mL) subcutaneous pen ( #9 mL Solostar U-100 Insulin) metformin 500 mg tablet 1,000 mg PO BIDWMEAL 90 days #360 11/16/22 tabs nebulizers (AeroEclipse II #1 ea 11/16/22 Nebulizer) rosuvastatin 20 mg tablet 20 mg PO DAILY 90 days #90 tabs 11/16/22 lancets 28 gauge (FreeStyle #100 ea 11/18/22 Lancets) meloxicam 15 mg tablet 15 mg PO DAILY #14 tabs 11/25/22 <FIDE Hall - Last Filed: 11/25/22 11:05> Allergies/adverse reactions: Allergies Allergy/AdvReac Type Severity Reaction Status Date / Time seafood Allergy Intermediate Rash Verified 11/25/22 09:59 <FIDE Hall - Last Filed: 11/25/22 11:05> Review of Systems Review of Systems: CONSTITUTIONAL: Denies weight loss, fever and chills. HEENT: Denies changes in vision and hearing. RESPIRATORY: Denies SOB and cough. CV: Denies palpitations + CP. GI: Denies abdominal pain, nausea, vomiting and diarrhea. : Denies dysuria and urinary frequency. MSK: Denies myalgia and joint pain. SKIN: Denies rash and pruritus. NEUROLOGICAL: Denies headache and syncope. PSYCHIATRIC: Denies recent changes in mood. Denies anxiety and depression. All other ROS are negative unless in HPI <Jack Luevano MD - Last Filed: 11/25/22 12:26> PMFSH Past Medical History Medical History: Medical History Blood in stool Bronchitis Diabetes mellitus Essential hypertension Headache Mixed hyperlipidemia Morbid obesity Obesity (BMI 35.0-39.9 without comorbidity) KUNAL (obstructive sleep apnea) Urge urinary incontinence <FIDE Hall - Last Filed: 11/25/22 11:05> Surgical History: Surgical History No pertinent past surgical history <FIDE Hall - Last Filed: 11/25/22 11:05> Family History Family History: Family History Father Essential hypertension Mother No problems noted. Paternal Uncle Myocardial infarct <FIDE Hall - Last Filed: 11/25/22 11:05> Social History Social History: Social History Housing: Apartment Alcohol intake: never Patient Tobacco Use Status: Never used Tobacco e-Cigarette/Vaping Use: Never Used Second Hand Smoke Exposure: No Advance Directives: No service: No Current occupational status: employed Current occupational exposures/hazards: No Cognitive needs: No Hearing needs: No Vision needs: No <FIDE Hall - Last Filed: 11/25/22 11:05> Physical Exam ED Vital Signs: Vital Signs - 24 hr 11/25/22 10:57 Temperature 96.8 F Pulse Rate 81 Respiratory Rate 19 Blood Pressure 153/106 H Pulse Oximetry 98 Oxygen Delivery Method Room Air BMI result Body Mass Index 41.3 <FIDE Hall - Last Filed: 11/25/22 11:05> Vital Signs - 24 hr 11/25/22 10:57 Temperature 96.8 F Pulse Rate 81 Respiratory Rate 19 Blood Pressure 153/106 H Pulse Oximetry 98 Oxygen Delivery Method Room Air BMI result Body Mass Index 41.3 GEN: Well developed, no acute distress, alert, oriented HEENT: Normocephalic, atraumatic, normal external ears, nose appears normal, no oropharyngeal edema or exudates Eyes: Normal to appearance Neck: Supple, no lymphadenopathy Respiratory: Talks in complete sentences, no respiratory distress, clear to auscultation bilaterally Cardiovascular: Regular rate and rhythm, no murmurs rubs or gallops Abdomen: Soft, nontender, nondistended, no guarding, no rebound Back: No CVA tenderness Extremities: No clubbing cyanosis or edema Neurologic: No focal neurologic deficits, cranial nerves 2-12 intact, strength is 5/5 bilaterally, gait normal Skin: No rash Chest: reproducible chest wall tenderesss to palpation overlying the sternum <Jack Luevano MD - Last Filed: 11/25/22 12:26> Course Course Course Narrative: This is an RME: Additional HPI, ROS, PE not included below will be deferred to primary provider. 37-year-old male presents with substernal chest pain, nonradiating, feels like there is a ball in the center of his chest x1 week also reports he had 1 bowel movement with blood in it few days ago. Physical examination benign. Will order EKG and basic labs. <FIDE Hall - Last Filed: 11/25/22 11:05> Reevaluation(s) Reevaluation #1: I reviewed all results with the patient. He understands for is most likely musculoskeletal chest wall pain. Follow up with his primary care provider next week. Should the pain changed in any way or associated with exertion, he will return for re-evaluation. <Jack Luevano MD - Last Filed: 11/25/22 12:26> Time: 12:21 <Jack Luevano MD - Last Filed: 11/25/22 12:26> Medical Decision Making Medical Decision Making MDM Narrative: 37-year-old male with history of diabetes presents with chest pain. Chest pain was nonexertional. Worse with deep inspiration worse at night. Examination revealed reproducible sternal tenderness to palpation. Otherwise his examination was unremarkable. Doubt PE as he has no significant risk factors. Doubt acute coronary syndrome given an atypical story. Lungs are clear to auscultation bilaterally doubt pneumothorax. Story is not typical for pericarditis nor does he have obvious risk factors for pericarditis or myocarditis at this time. Patient will have routine laboratory analysis, re- evaluation and determination for distal position <Jack Luevano MD - Last Filed: 11/25/22 12:26> Differential Diagnosis Differential Diagnoses: The differential diagnosis associated with the presentation includes (Atypical chest pain, musculoskeletal chest pain, chest wall pain, myocardial infarction, pericarditis, myocarditis, anxiety, stress, reflux, pneumonia, pulmonary embolus, dissection) <Jack Luevano MD - Last Filed: 11/25/22 12:26> Chest wall pain <Jack Luevano MD - Last Filed: 11/25/22 12:26> Admission/Observation Consideration of admission/observation: Escalation of care including admission/observation considered (Given the longstanding nature of his symptoms, doubt cardiac etiology. Will have him follow up with the primary care provider return as needed.) <Jack Luevano MD - Last Filed: 11/25/22 12:26> Lab Data MDM Lab Attestation statement: I reviewed the patient's lab results. <Jack Luevano MD - Last Filed: 11/25/22 12:26> Result Diagrams: 11/25/22 11:31 11/25/22 11:31 <FIDE Hall - Last Filed: 11/25/22 11:05> Labs: Lab Results 11/25/22 11/25/22 11/25/22 Range/Units 11:31 11:31 11:31 WBC 7.9 (4.8-10.8) X10*3/uL RBC 4.91 (4.60-5.80) X10*6/uL Hgb 15.0 (14.0-18.0) g/dl Hct 44.3 (42.0-52.0) % MCV 90.2 (80.0-98.0) fL MCH 30.5 (27.0-33.0) pg MCHC 33.9 (31.0-36.0) g/dl RDW 13.6 (11.0-16.0) % Plt Count 194 (160-400) X10*3/uL MPV 9.9 (9.4-12.4) fL Immature Gran % (Auto) 0.5 H (0.0-0.4) % Neut % (Auto) 53.0 (45-73) % Lymph % (Auto) 37.9 (20-40) % [place] % (Auto) 6.7 (2-11) % Eos % (Auto) 1.6 (0-4) % Baso % (Auto) 0.3 (0-2) % Lymph # (Auto) 3.0 (1.2-4.9) X10*3/uL [place] # (Auto) 0.5 (0.1-1.2) X10*3/uL Eos # (Auto) 0.1 (0.0-0.4) X10*3/uL Baso # (Auto) 0.0 (0.0-0.2) X10*3/uL Abs Immat Gran (auto) 0.04 H (0.00-0.03) X10*3/uL Absolute Neuts (auto) 4.2 (2.0-8.3) x10*3/uL Absolute Nucleated RBC 0.000 (0.0-0.012) X10*3/uL Nucleated RBC % (auto) 0.0 (0.0-0.2) /100WBC Sodium 139 (135-145) mmol/L Potassium 3.6 (3.3-5.1) mmol/L Chloride 101 (96-108) mmol/L Carbon Dioxide 28 (22-29) mmol/L Anion Gap 14 (12-20) BUN 10 (9-16) mg/dL Creatinine 0.88 (0.5-1.4) mg/dL Estim Creat Clear Calc 125.4 Estimated GFR > 60 Random Glucose 146 H (60-115) mg/dL Calcium 9.7 (8.4-10.2) mg/dL Total Bilirubin 1.2 H (0.0-1.0) mg/dL AST 36 (5-37) U/L ALT 58 H (0-40) U/L Alkaline Phosphatase 95 (39-117) U/L Troponin I High Sens < 3.5 (<3.5-35.0) ng/L Total Protein 7.3 (6.5-8.0) g/dL Albumin 4.1 (3.5-5.0) g/dL <FIDE Hall - Last Filed: 11/25/22 11:05> Lab Results 11/25/22 11/25/22 11/25/22 Range/Units 11:31 11:31 11:31 WBC 7.9 (4.8-10.8) X10*3/uL RBC 4.91 (4.60-5.80) X10*6/uL Hgb 15.0 (14.0-18.0) g/dl Hct 44.3 (42.0-52.0) % MCV 90.2 (80.0-98.0) fL MCH 30.5 (27.0-33.0) pg MCHC 33.9 (31.0-36.0) g/dl RDW 13.6 (11.0-16.0) % Plt Count 194 (160-400) X10*3/uL MPV 9.9 (9.4-12.4) fL Immature Gran % (Auto) 0.5 H (0.0-0.4) % Neut % (Auto) 53.0 (45-73) % Lymph % (Auto) 37.9 (20-40) % [place] % (Auto) 6.7 (2-11) % Eos % (Auto) 1.6 (0-4) % Baso % (Auto) 0.3 (0-2) % Lymph # (Auto) 3.0 (1.2-4.9) X10*3/uL [place] # (Auto) 0.5 (0.1-1.2) X10*3/uL Eos # (Auto) 0.1 (0.0-0.4) X10*3/uL Baso # (Auto) 0.0 (0.0-0.2) X10*3/uL Abs Immat Gran (auto) 0.04 H (0.00-0.03) X10*3/uL Absolute Neuts (auto) 4.2 (2.0-8.3) x10*3/uL Absolute Nucleated RBC 0.000 (0.0-0.012) X10*3/uL Nucleated RBC % (auto) 0.0 (0.0-0.2) /100WBC Sodium 139 (135-145) mmol/L Potassium 3.6 (3.3-5.1) mmol/L Chloride 101 (96-108) mmol/L Carbon Dioxide 28 (22-29) mmol/L Anion Gap 14 (12-20) BUN 10 (9-16) mg/dL Creatinine 0.88 (0.5-1.4) mg/dL Estim Creat Clear Calc 125.4 Estimated GFR > 60 Random Glucose 146 H (60-115) mg/dL Calcium 9.7 (8.4-10.2) mg/dL Total Bilirubin 1.2 H (0.0-1.0) mg/dL AST 36 (5-37) U/L ALT 58 H (0-40) U/L Alkaline Phosphatase 95 (39-117) U/L Troponin I High Sens < 3.5 (<3.5-35.0) ng/L Total Protein 7.3 (6.5-8.0) g/dL Albumin 4.1 (3.5-5.0) g/dL <Jack Luevano MD - Last Filed: 11/25/22 12:26> Independent Interpretation I performed an independent interpretation of an: EKG (Normal sinus rhythm heart rate 82, no acute ST elevations or depression, nonspecific ST T wave changes. No significant changes compared to July 23, 2022) and Plain X-Ray (Chest no acute cardiopulmonary disease) <Jack Luevano MD - Last Filed: 11/25/22 12:26> External Record Review External record reviewed: Outpatient record <Jack Luevano MD - Last Filed: 11/25/22 12:26> Tests considered The following testing was considered but not selected: CT chest <Jack Luevano MD - Last Filed: 11/25/22 12:26> Prescription Management I considered prescription management with: Pain Medication <Jack Luevano MD - Last Filed: 11/25/22 12:26> Chronic Conditions Patient?s care impacted by: Diabetes and Hypertension <Jack Luevano MD - Last Filed: 11/25/22 12:26> Discharge Plan Discharge Clinical Impression: Acute chest wall pain <FIDE Hall - Last Filed: 11/25/22 11:05> Patient Disposition: Home, Self-Care <FIDE Hall - Last Filed: 11/25/22 11:05> Instructions: Chest Wall Pain (ED) <FIDE Hall - Last Filed: 11/25/22 11:05> Additional Instructions: Return to the emergency department if he develops worsening symptoms, chest pain associated with exertion or any other concerning signs or symptoms. <FIDE Hall - Last Filed: 11/25/22 11:05> Prescriptions: New meloxicam 15 mg tablet 15 mg PO DAILY Qty: 14 0RF No Action famotidine 20 mg tablet 20 mg PO BEDTIME Qty: 30 1RF amlodipine 5 mg tablet 5 mg PO DAILY 90 Days Qty: 90 0RF (DME) FreeStyle Lite Strips Strip See Rx Instructions .Route Qty: 100 2RF Rx Instructions: Use 1 test strip once a day (DME) nebulizers [AeroEclipse II Nebulizer] Misc See Rx Instructions .Route Qty: 1 0RF Rx Instructions: As directed rosuvastatin 20 mg tablet 20 mg PO DAILY 90 Days Qty: 90 1RF insulin glargine [Lantus Solostar U-100 Insulin] 100 unit/mL (3 mL) insulin pen 10 unit subcut QPM 90 Days Qty: 9 1RF albuterol sulfate 2.5 mg /3 mL (0.083 %) solution for nebulization 2.5 mg inhalation Q4-6H PRN (Reason: shortness of breath or wheezing) 30 Days Qty: 75 1RF (DME) blood pressure monitor Kit See Rx Instructions .Route Qty: 1 0RF Rx Instructions: As directed metformin 500 mg tablet 1,000 mg PO BIDWMEAL 90 Days Qty: 360 3RF (DME) lancets [FreeStyle Lancets] 28 gauge misc See Rx Instructions .Route Qty: 100 1RF Rx Instructions: Use 1 lancet once a day clotrimazole 1 % cream 1 appl topical BID 14 Days Qty: 45 0RF hydrocortisone 1 % cream 1 appl topical BID PRN (Reason: rash) 14 Days Qty: 28.4 0RF (DME) blood-glucose meter [FreeStyle Lite Meter] Kit See Rx Instructions .Route Qty: 1 0RF Rx Instructions: As directed escitalopram oxalate 10 mg tablet 15 mg PO DAILY hydroxyzine pamoate 50 mg capsule 50 mg PO Q6H PRN (Reason: anxiety) (DME) pen needle, diabetic [1st Tier Unifine Pentips] 31 gauge x 5/16 needle See Rx Instructions .Route Qty: 100 3RF Rx Instructions: Use 1 pen needle once a day (DME) CPAP Full FACE MASK medium 14 cm H2O humidified AIR See Rx Instructions .Route .MEDSUPPLY Qty: 1 0RF Rx Instructions: As directed <FIDE Hall - Last Filed: 11/25/22 11:05> Referrals: Jazzmine Alvarado MD [Primary Care Provider] - 3 days <FIDE Hall - Last Filed: 11/25/22 11:05> Print Language: Upper Sorbian <FIDE Hall - Last Filed: 11/25/22 11:05>
[2022-11-25 11:36] LABS: MANUAL DIFF FLAG NO
[2022-11-25 11:40] LABS: Basophils Percent Auto 0.3 % (0-2); Eosinophils Absolute Auto 0.1 X10*3/uL (0.0-0.4); Eosinophils Percent Auto 1.6 % (0-4); Hematocrit 44.3 % (42.0-52.0); Imm Gran Abs Auto 0.04 X10*3/uL (0.00-0.03); Imm Gran Pct Auto 0.5 % (0.0-0.4); Lymphocytes Percent Auto 37.9 % (20-40); Mean Corpuscular HGB Conc 33.9 g/dl (31.0-36.0); Mean Corpuscular Hemoglobin 30.5 pg (27.0-33.0); Mean Corpuscular Volume 90.2 fL (80.0-98.0); Mean Platelet Volume 9.9 fL (9.4-12.4); Monocytes Absolute Auto 0.5 X10*3/uL (0.1-1.2); Monocytes Percent Auto 6.7 % (2-11); Neutrophils Absolute Auto 4.2 x10*3/uL (2.0-8.3); Platelet Count 194 X10*3/uL (160-400); Red Blood Count 4.91 X10*6/uL (4.60-5.80); Red Cell Distribution Width 13.6 % (11.0-16.0); White Blood Count 7.9 X10*3/uL (4.8-10.8)
[2022-11-25 11:53] LABS: Alanine Aminotransferase 58 U/L (0-40); Albumin Level 4.1 g/dL (3.5-5.0); Alkaline Phosphatase 95 U/L (39-117); Anion Gap 14 (12-20); Aspartate Amino Transferase 36 U/L (5-37); Bilirubin Total 1.2 mg/dL (0.0-1.0); Blood Urea Nitrogen 10 mg/dL (9-16); Calcium 9.7 mg/dL (8.4-10.2); Carbon Dioxide 28 mmol/L (22-29); Chloride 101 mmol/L (96-108); Creatinine Clr Calc Pharmacy 125.4; Estimated Glomerular Filt Rate > 60; Glucose Random 146 mg/dL (60-115); Potassium 3.6 mmol/L (3.3-5.1); Sodium 139 mmol/L (135-145); Total Protein 7.3 g/dL (6.5-8.0)
[2022-11-25 11:59] LABS: Troponin-I High Sensitivity < 3.5 ng/L (<3.5-35.0)
[2022-11-25 12:42] VITALS: BP 154/91; PULSE 82; RESP 14; O2SAT 97
== END 2022-11-25 12:46 | disposition home or self-care (01) ==
PROVIDERS: Physician Assistant; Emergency Provider Emergency Medicine; PCP Internal Medicine
DX: R07.89 Other chest pain (principal); E11.9 Type 2 diabetes mellitus without complications; I10 Essential (primary) hypertension; E78.5 Hyperlipidemia, unspecified; E66.9 Obesity, unspecified; Z68.41 Body mass index [BMI] 40.0-44.9, adult; Z79.4 Long term (current) use of insulin; Z79.899 Other long term (current) drug therapy
CPT/HCPCS: 36415; 71045; 80053; 84484; 85025; 93005; 99283; 99284

== ENCOUNTER 2023-01-12 11:08 | Emergency (ER) | payer OTHER, SELFPAY ==
--- NOTE | ~2023-01-12 | CT_ITS ---
EXAMINATION: CT HEAD WITHOUT CONTRAST CLINICAL INFORMATION: Severe headache. COMPARISON: None available. TECHNIQUE: Contiguous axial imaging was performed from the skull base to vertex without intravenous administration of contrast. This CT examination was performed using dose optimization techniques as appropriate, variously including the following: *Automated exposure control *Adjustment of mA and/or kV according to patient size (this includes techniques or standardized protocols for targeted exams where dose is matched to indication/reason for exam; i.e. extremities or head) *Use of iterative reconstruction technique DLP: 717 mGy-cm FINDINGS: The brain parenchyma has normal attenuation. The canonn-white matter differentiation is well preserved. No evidence of an acute major vascular territory infarction. No intracranial hemorrhage, extra-axial fluid collection, focal mass effect or midline shift. The ventricles have normal size and configuration; no hydrocephalus. The brainstem and cerebellum have a normal appearance. The cerebellar tonsils are in normal position. The calvarium is intact. The visualized paranasal sinuses, mastoid air cells and middle ear cavities are well aerated. The orbits and globes are unremarkable. The temporomandibular joints are normal. CT/CT head/brain wo IV con IMPRESSION: No acute intracranial pathology.
[2023-01-12 11:43] VITALS: BP 172/112; PULSE 85; RESP 19; TEMP 36.6; O2SAT 98; BMI 40.7
--- NOTE | 2023-01-12 11:44 | ED.HA ---
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 Patient states he vomited blood last night and this morning. Patient states he is vomiting only blood. He states he has never vomited blood before. No history of PUD. No history of upper endoscopy. Patient has had headache for weeks, his headache is right sided, no history of migraines. <Eulalio Benton MD - Last Filed: 01/12/23 14:56> MD elicited complaint: headache <Eulalio Benton MD - Last Filed: 01/12/23 14:56> Onset (ago): week(s) <Eulalio Benton MD - Last Filed: 01/12/23 14:56> Onset description: gradually <Eulalio Benton MD - Last Filed: 01/12/23 14:56> Location: right <Eulalio Benton MD - Last Filed: 01/12/23 14:56> Severity: moderate <Eulalio Benton MD - Last Filed: 01/12/23 14:56> Quality & Timing: throbbing <Eulalio Benton MD - Last Filed: 01/12/23 14:56> Associated symptoms: vomiting <Eulalio Benton MD - Last Filed: 01/12/23 14:56> Related Data Home Medications: Home Medications Medication Instructions Recorded Confirmed escitalopram oxalate 10 mg tablet 15 mg PO DAILY 08/26/22 11/25/22 hydroxyzine pamoate 50 mg capsule 50 mg PO Q6H PRN anxiety 08/26/22 11/25/22 Previous Rx's Medication Instructions Recorded blood-glucose meter (FreeStyle #1 ea 01/20/22 Lite Meter kit) clotrimazole 1 % topical cream 1 appl topical BID 2 weeks #45 07/13/22 grams hydrocortisone 1 % topical cream 1 appl topical BID PRN rash 2 07/13/22 weeks #28.4 grams CPAP Full FACE MASK medium 14 cm #1 ea 08/26/22 H2O humidified AIR pen needle, diabetic 31 gauge x #100 ea 08/26/22 5/16 (1st Tier Unifine Pentips) albuterol sulfate 2.5 mg/3 mL 2.5 mg (3 mL) inhalation Q4-6H PRN 11/16/22 (0.083 %) solution for nebulization shortness of breath or wheezing 30 days #75 mL blood pressure monitor #1 ea 11/16/22 blood sugar diagnostic (FreeStyle #100 ea 11/16/22 Lite Strips) insulin glargine 100 unit/mL (3 10 unit (0.1 mL) subcut QPM 90 11/16/22 mL) subcutaneous pen (Lantus #9 mL Solostar U-100 Insulin) metformin 500 mg tablet 1,000 mg PO BIDWMEAL 90 days #360 11/16/22 tabs nebulizers (AeroEclipse II #1 ea 11/16/22 Nebulizer) rosuvastatin 20 mg tablet 20 mg PO DAILY 90 days #90 tabs 11/16/22 lancets 28 gauge (FreeStyle #100 ea 11/18/22 Lancets) meloxicam 15 mg tablet 15 mg PO DAILY #14 tabs 11/25/22 amlodipine 5 mg tablet 5 mg PO DAILY 90 days #90 tabs 12/10/22 famotidine 20 mg tablet 20 mg PO BEDTIME #30 tabs 01/02/23 pantoprazole 40 mg tablet,delayed 40 mg PO DAILY #20 tabs 01/12/23 release (Protonix) <FIDE Blackburn - Last Filed: 01/12/23 11:48> Allergies/Adverse Reactions: Allergies Allergy/AdvReac Type Severity Reaction Status Date / Time seafood Allergy Intermediate Rash Verified 01/12/23 11:43 <FIDE Blackburn - Last Filed: 01/12/23 11:48> Review of Systems Review of Systems: Yes all other systems are reviewed and are negative <Eulalio Benton MD - Last Filed: 01/12/23 14:56> Neurologic: Denies Sensory deficit (Neuro) <Eulalio Benton MD - Last Filed: 01/12/23 14:56> [facility] Past Medical History Medical History: Medical History Blood in stool Bronchitis Diabetes mellitus Essential hypertension Headache Mixed hyperlipidemia Morbid obesity Obesity (BMI 35.0-39.9 without comorbidity) KUNAL (obstructive sleep apnea) Urge urinary incontinence <FIDE Blackburn - Last Filed: 01/12/23 11:48> Surgical History: Surgical History No pertinent past surgical history <FIDE Blackburn - Last Filed: 01/12/23 11:48> Family History Family History: Family History Father Essential hypertension Mother No problems noted. Paternal Uncle Myocardial infarct <FIDE Blackburn - Last Filed: 01/12/23 11:48> Social History Social History: Social History Housing: Apartment Alcohol intake: unknown Patient Tobacco Use Status: Never used Tobacco Smoked in Last 30 Days: No e-Cigarette/Vaping Use: Never Used Second Hand Smoke Exposure: No Advance Directives: No Advance Directives Information Provided: Yes service: No Current occupational status: employed Current occupational exposures/hazards: No Cognitive needs: No Hearing needs: No Vision needs: No <FIDE Blackburn - Last Filed: 01/12/23 11:48> Physical Exam Vital Signs: Vital Signs: Last Vital Signs Temp 98 F 01/12/23 11:43 Pulse 80 01/12/23 13:48 Resp 18 01/12/23 13:48 BP 171/103 H 01/12/23 13:48 Pulse Ox 95 01/12/23 13:48 O2 Del Method Room Air 01/12/23 13:48 BMI result Body Mass Index 40.7 <FIDE Blackburn - Last Filed: 01/12/23 11:48> Vital Signs: Last Vital Signs Temp 98 F 01/12/23 11:43 Pulse 80 01/12/23 13:48 Resp 18 01/12/23 13:48 BP 171/103 H 01/12/23 13:48 Pulse Ox 95 01/12/23 13:48 O2 Del Method Room Air 01/12/23 13:48 BMI result Body Mass Index 40.7 <Eulalio Benton MD - Last Filed: 01/12/23 14:56> Const: General: healthy appearing <Eulalio Benton MD - Last Filed: 01/12/23 14:56> Nutritional Appearance: average body habitus <Eulalio Benton MD - Last Filed: 01/12/23 14:56> Orientation/consciousness: oriented to person and patient oriented x3 <Eulalio Benton MD - Last Filed: 01/12/23 14:56> Limitations: no limitations <Eulalio Benton MD - Last Filed: 01/12/23 14:56> HEENT: Head: Yes normal to inspection <Eulalio Benton MD - Last Filed: 01/12/23 14:56> Ears: external ears normal <Eullaio Benton MD - Last Filed: 01/12/23 14:56> General nose exam: Normal external nose present <Eulalio Benton MD - Last Filed: 01/12/23 14:56> Mouth: Normal oral and palatal mucosa present and oropharynx normal <Eulalio Benton MD - Last Filed: 01/12/23 14:56> Throat: Yes posterior oropharynx normal <Eulalio Benton MD - Last Filed: 01/12/23 14:56> Eyes: General: appearance normal, both eyes and all related structures <Eulalio Benton MD - Last Filed: 01/12/23 14:56> Neck: Other: supple <Eulalio Benton MD - Last Filed: 01/12/23 14:56> Neck: Yes normal visual inspection <Eulalio Benton MD - Last Filed: 01/12/23 14:56> Chest: Chest palpation & inspection: normal inspection of the chest <Eulalio Benton MD - Last Filed: 01/12/23 14:56> Resp: Auscultation: clear to auscultation bilaterally <Eulalio Benton MD - Last Filed: 01/12/23 14:56> Cardio: Jugular venous distension: no JVD <Eulalio Benton MD - Last Filed: 01/12/23 14:56> Rate: regular rate <Eulalio Benton MD - Last Filed: 01/12/23 14:56> Rhythm: regular rhythm <Eulalio Benton MD - Last Filed: 01/12/23 14:56> Heart sounds: S1 normal heart sound present and S2 normal heart sound present <Eulalio Benton MD - Last Filed: 01/12/23 14:56> GI: Inspection: Yes normal to inspection <Eulalio Benton MD - Last Filed: 01/12/23 14:56> Palpation (GI): Soft to palpation, nontender and No hepatosplenomegaly present <Eulalio Benton MD - Last Filed: 01/12/23 14:56> Auscultation: normal bowel sounds <Eulalio Benton MD - Last Filed: 01/12/23 14:56> : Other: rectal heme negative brown stool <Eulalio Benton MD - Last Filed: 01/12/23 14:56> General: Yes no CVA tenderness <Eulalio Benton MD - Last Filed: 01/12/23 14:56> Back/Spine/Pelvis: Back: no CVA tenderness <Eulalio Benton MD - Last Filed: 01/12/23 14:56> Skin: General skin exam: no rashes or lesions noted <Eulalio Benton MD - Last Filed: 01/12/23 14:56> Neuro: General: oriented to person and patient oriented x3 <Eulalio Benton MD - Last Filed: 01/12/23 14:56> Cranial nerves: Yes CN's II-XII intact bilaterally <Eulalio Benton MD - Last Filed: 01/12/23 14:56> Motor exam (neuro): 5/5 motor strength present throughout <Eulalio Benton MD - Last Filed: 01/12/23 14:56> Sensory Exam: No Sensory deficit (Neuro) <Eulalio Benton MD - Last Filed: 01/12/23 14:56> Extrem: General: Yes normal to inspection <Eulalio Benton MD - Last Filed: 01/12/23 14:56> Psych: Appearance: grossly normal <Eulalio Benton MD - Last Filed: 01/12/23 14:56> Course Course Course Narrative: RME - 37 yo Latvian speaking male presents to the ER for evaluation of severe right sided headache for the last few weeks. Pain has been worsening, today worst ever with throbbing pain, nausea, vomiting ashly blood x2 today. He states he has diffuse and pain and dizziness as well. BP 172/112 in triage - did not take BP meds today due to vomiting. Reports his mother from a blood disorder and vomiting blood. Plan: labs, coags, CT head. <FIDE Blackburn - Last Filed: 01/12/23 11:48> Reevaluation(s) Reevaluation #1: Patient refused ngt, stool heme negative, HCT normal, Head ct negative. Will dc heather protonix and tylenol <Eulalio Benton MD - Last Filed: 01/12/23 14:56> Time: 14:45 <Eulalio Benton MD - Last Filed: 01/12/23 14:56> Medications Administered Discontinued Medications Generic Name Dose Route Start Last Admin Trade Name Freq PRN Reason Stop Dose Admin Acetaminophen 975 mg 01/12/23 13:36 01/12/23 13:47 Acetaminophen 325 Mg Tablet PO 01/12/23 13:37 975 mg ONCE ONE Administration <FIDE Blackburn - Last Filed: 01/12/23 11:48> Medications Administered Discontinued Medications Generic Name Dose Route Start Last Admin Trade Name Freq PRN Reason Stop Dose Admin Acetaminophen 975 mg 01/12/23 13:36 01/12/23 13:47 Acetaminophen 325 Mg Tablet PO 01/12/23 13:37 975 mg ONCE ONE Administration <Eulalio Benton MD - Last Filed: 01/12/23 14:56> Medical Decision Making Differential Diagnosis Differential Diagnoses: The differential diagnosis associated with the presentation includes (migraine headache, headache, cerebral hemorrhage, Cerebral tumor, UGI bleed, Pratibha- Read, were all considered) <Eulalio Benton MD - Last Filed: 01/12/23 14:56> Admission/Observation Consideration of admission/observation: Escalation of care including admission/observation considered <Eulalio Benton MD - Last Filed: 01/12/23 14:56> when considering UGI bleed admission was considered <Eulalio Benton MD - Last Filed: 01/12/23 14:56> Lab Data Result Diagrams: 01/12/23 11:51 01/12/23 11:51 <FIDE Blackburn - Last Filed: 01/12/23 11:48> Labs: Lab Results 01/12/23 01/12/23 01/12/23 Range/Units 11:51 11:51 11:51 WBC 8.4 (4.8-10.8) X10*3/uL RBC 5.01 (4.60-5.80) X10*6/uL Hgb 15.5 (14.0-18.0) g/dl Hct 45.4 (42.0-52.0) % MCV 90.6 (80.0-98.0) fL MCH 30.9 (27.0-33.0) pg MCHC 34.1 (31.0-36.0) g/dl RDW 13.4 (11.0-16.0) % Plt Count 182 (160-400) X10*3/uL MPV 9.8 (9.4-12.4) fL Immature Gran % (Auto) 0.6 H (0.0-0.4) % Neut % (Auto) 67.1 (45-73) % Lymph % (Auto) 24.4 (20-40) % [place] % (Auto) 6.8 (2-11) % Eos % (Auto) 1.0 (0-4) % Baso % (Auto) 0.1 (0-2) % Lymph # (Auto) 2.1 (1.2-4.9) X10*3/uL [place] # (Auto) 0.6 (0.1-1.2) X10*3/uL Eos # (Auto) 0.1 (0.0-0.4) X10*3/uL Baso # (Auto) 0.0 (0.0-0.2) X10*3/uL Abs Immat Gran (auto) 0.05 H (0.00-0.03) X10*3/uL Absolute Neuts (auto) 5.6 (2.0-8.3) x10*3/uL Absolute Nucleated RBC 0.000 (0.0-0.012) X10*3/uL Nucleated RBC % (auto) 0.0 (0.0-0.2) /100WBC PT 11.2 (10.0-13.1) SEC INR 1.0 (0.9-1.1) APTT 32.6 (26.0-36.4) SEC Sodium 141 (135-145) mmol/L Potassium 4.1 (3.3-5.1) mmol/L Chloride 104 (96-108) mmol/L Carbon Dioxide 30 H (22-29) mmol/L Anion Gap 11 L (12-20) BUN 10 (9-16) mg/dL Creatinine 0.82 (0.5-1.4) mg/dL Estim Creat Clear Calc 133.6 Estimated GFR > 60 Random Glucose 198 H (60-115) mg/dL Calcium 9.2 (8.4-10.2) mg/dL Magnesium 2.0 (1.6-2.6) mg/dL Total Bilirubin 1.2 H (0.0-1.0) mg/dL Direct Bilirubin 0.2 (0.0-0.5) mg/dL AST 45 H (5-37) U/L ALT 65 H (0-40) U/L Alkaline Phosphatase 97 (39-117) U/L Total Protein 7.1 (6.5-8.0) g/dL Albumin 4.0 (3.5-5.0) g/dL <FIDE Blackburn - Last Filed: 01/12/23 11:48> Lab Results 01/12/23 01/12/23 01/12/23 Range/Units 11:51 11:51 11:51 WBC 8.4 (4.8-10.8) X10*3/uL RBC 5.01 (4.60-5.80) X10*6/uL Hgb 15.5 (14.0-18.0) g/dl Hct 45.4 (42.0-52.0) % MCV 90.6 (80.0-98.0) fL MCH 30.9 (27.0-33.0) pg MCHC 34.1 (31.0-36.0) g/dl RDW 13.4 (11.0-16.0) % Plt Count 182 (160-400) X10*3/uL MPV 9.8 (9.4-12.4) fL Immature Gran % (Auto) 0.6 H (0.0-0.4) % Neut % (Auto) 67.1 (45-73) % Lymph % (Auto) 24.4 (20-40) % [place] % (Auto) 6.8 (2-11) % Eos % (Auto) 1.0 (0-4) % Baso % (Auto) 0.1 (0-2) % Lymph # (Auto) 2.1 (1.2-4.9) X10*3/uL [place] # (Auto) 0.6 (0.1-1.2) X10*3/uL Eos # (Auto) 0.1 (0.0-0.4) X10*3/uL Baso # (Auto) 0.0 (0.0-0.2) X10*3/uL Abs Immat Gran (auto) 0.05 H (0.00-0.03) X10*3/uL Absolute Neuts (auto) 5.6 (2.0-8.3) x10*3/uL Absolute Nucleated RBC 0.000 (0.0-0.012) X10*3/uL Nucleated RBC % (auto) 0.0 (0.0-0.2) /100WBC PT 11.2 (10.0-13.1) SEC INR 1.0 (0.9-1.1) APTT 32.6 (26.0-36.4) SEC Sodium 141 (135-145) mmol/L Potassium 4.1 (3.3-5.1) mmol/L Chloride 104 (96-108) mmol/L Carbon Dioxide 30 H (22-29) mmol/L Anion Gap 11 L (12-20) BUN 10 (9-16) mg/dL Creatinine 0.82 (0.5-1.4) mg/dL Estim Creat Clear Calc 133.6 Estimated GFR > 60 Random Glucose 198 H (60-115) mg/dL Calcium 9.2 (8.4-10.2) mg/dL Magnesium 2.0 (1.6-2.6) mg/dL Total Bilirubin 1.2 H (0.0-1.0) mg/dL Direct Bilirubin 0.2 (0.0-0.5) mg/dL AST 45 H (5-37) U/L ALT 65 H (0-40) U/L Alkaline Phosphatase 97 (39-117) U/L Total Protein 7.1 (6.5-8.0) g/dL Albumin 4.0 (3.5-5.0) g/dL <Eulalio Benton MD - Last Filed: 01/12/23 14:56> Independent Interpretation I performed an independent interpretation of an: CT Scan (brain no bleed or mass seen) <Eulalio Benton MD - Last Filed: 01/12/23 14:56> Discharge Plan Discharge Clinical Impression: Headache, Gastritis <FIDE Blackburn - Last Filed: 01/12/23 11:48> Patient Disposition: Home, Self-Care <FIDE Blackburn - Last Filed: 01/12/23 11:48> Instructions: Gastritis (ED), Acute Headache (ED) <FIDE Blackburn - Last Filed: 01/12/23 11:48> Prescriptions: New pantoprazole [Protonix] 40 mg tablet,delayed release (DR/EC) 40 mg PO DAILY Qty: 20 0RF No Action (DME) FreeStyle Lite Strips Strip See Rx Instructions .Route Qty: 100 2RF Rx Instructions: Use 1 test strip once a day (DME) nebulizers [AeroEclipse II Nebulizer[place] [facility] [place] .Route Qty: 1 0RF Rx Instructions: As directed rosuvastatin 20 mg tablet 20 mg PO DAILY 90 Days Qty: 90 1RF insulin glargine [Lantus Solostar U-100 Insulin] 100 unit/mL (3 mL) insulin pen 10 unit subcut QPM 90 Days Qty: 9 1RF albuterol sulfate 2.5 mg /3 mL (0.083 %) solution for nebulization 2.5 mg inhalation Q4-6H PRN (Reason: shortness of breath or wheezing) 30 Days Qty: 75 1RF (DME) blood pressure monitor Kit See Rx Instructions .Route Qty: 1 0RF Rx Instructions: As directed metformin 500 mg tablet 1,000 mg PO BIDWMEAL 90 Days Qty: 360 3RF (DME) lancets [FreeStyle Lancets] 28 gauge misc See Rx Instructions .Route Qty: 100 1RF Rx Instructions: Use 1 lancet once a day amlodipine 5 mg tablet 5 mg PO DAILY 90 Days Qty: 90 0RF famotidine 20 mg tablet 20 mg PO BEDTIME Qty: 30 1RF meloxicam 15 mg tablet 15 mg PO DAILY Qty: 14 0RF clotrimazole 1 % cream 1 appl topical BID 14 Days Qty: 45 0RF hydrocortisone 1 % cream 1 appl topical BID PRN (Reason: rash) 14 Days Qty: 28.4 0RF (DME) blood-glucose meter [FreeStyle Lite Meter] Kit See Rx Instructions .Route Qty: 1 0RF Rx Instructions: As directed escitalopram oxalate 10 mg tablet 15 mg PO DAILY hydroxyzine pamoate 50 mg capsule 50 mg PO Q6H PRN (Reason: anxiety) (DME) pen needle, diabetic [1st Tier Unifine Pentips] 31 gauge x 5/16 needle See Rx Instructions .Route Qty: 100 3RF Rx Instructions: Use 1 pen needle once a day (DME) CPAP Full FACE MASK medium 14 cm H2O humidified AIR See Rx Instructions .Route .MEDSUPPLY Qty: 1 0RF Rx Instructions: As directed <FIDE Blackburn - Last Filed: 01/12/23 11:48> Referrals: Jazzmine Alvarado MD [Primary Care Provider] - 3 days <FIDE Blackburn - Last Filed: 01/12/23 11:48>
[2023-01-12 12:03] LABS: MANUAL DIFF FLAG NO
[2023-01-12 12:08] LABS: Basophils Percent Auto 0.1 % (0-2); Eosinophils Absolute Auto 0.1 X10*3/uL (0.0-0.4); Hematocrit 45.4 % (42.0-52.0); Hemoglobin 15.5 g/dl (14.0-18.0); Imm Gran Abs Auto 0.05 X10*3/uL (0.00-0.03); Imm Gran Pct Auto 0.6 % (0.0-0.4); Lymphocytes Absolute Auto 2.1 X10*3/uL (1.2-4.9); Lymphocytes Percent Auto 24.4 % (20-40); Mean Corpuscular HGB Conc 34.1 g/dl (31.0-36.0); Mean Corpuscular Hemoglobin 30.9 pg (27.0-33.0); Mean Corpuscular Volume 90.6 fL (80.0-98.0); Mean Platelet Volume 9.8 fL (9.4-12.4); Monocytes Absolute Auto 0.6 X10*3/uL (0.1-1.2); Monocytes Percent Auto 6.8 % (2-11); Neutrophils Absolute Auto 5.6 x10*3/uL (2.0-8.3); Neutrophils Percent Auto 67.1 % (45-73); Platelet Count 182 X10*3/uL (160-400); Red Blood Count 5.01 X10*6/uL (4.60-5.80); Red Cell Distribution Width 13.4 % (11.0-16.0); White Blood Count 8.4 X10*3/uL (4.8-10.8)
[2023-01-12 12:09] LABS: Prothrombin Time 11.2 SEC (10.0-13.1)
[2023-01-12 12:12] LABS: Partial Thromboplastin Time 32.6 SEC (26.0-36.4)
[2023-01-12 12:18] LABS: Alanine Aminotransferase 65 U/L (0-40); Alkaline Phosphatase 97 U/L (39-117); Anion Gap 11 (12-20); Aspartate Amino Transferase 45 U/L (5-37); Bilirubin Direct 0.2 mg/dL (0.0-0.5); Bilirubin Total 1.2 mg/dL (0.0-1.0); Blood Urea Nitrogen 10 mg/dL (9-16); Calcium 9.2 mg/dL (8.4-10.2); Carbon Dioxide 30 mmol/L (22-29); Chloride 104 mmol/L (96-108); Creatinine Clr Calc Pharmacy 133.6; Estimated Glomerular Filt Rate > 60; Glucose Random 198 mg/dL (60-115); Potassium 4.1 mmol/L (3.3-5.1); Sodium 141 mmol/L (135-145); Total Protein 7.1 g/dL (6.5-8.0)
--- NOTE | 2023-01-12 12:24 | PC.NURSE ---
Patient primarily Romansh speaking AOx 4 neuros intact reports head pain and abdominal pain /10 some RUQ and RLQ tenderness with palpation auscultation will CTM
--- NOTE | 2023-01-12 12:59 | PC.NURSE ---
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
--- NOTE | 2023-01-12 13:14 | PC.NURSE ---
Patient not currently vomiting blood will CTM
--- NOTE | 2023-01-12 13:36 | PC.NURSE ---
attempt to place 18 setswana NG tube patient refused would not allow second attempt. MD Dr Benton made aware. Awaiting orders will CTM
[2023-01-12] MEDS: Acetaminophen 325 MG TABLET 975 MG PO (13:47)
[2023-01-12 13:48] VITALS: BP 171/103; PULSE 80; RESP 18; O2SAT 95
--- NOTE | 2023-01-12 14:30 | PC.NURSE ---
Patient resting comfortably o distress noted will CTM
== END 2023-01-12 15:27 | disposition home or self-care (01) ==
PROVIDERS: Physician Assistant; Emergency Provider Emergency Medicine; PCP Internal Medicine
DX: K29.70 Gastritis, unspecified, without bleeding (principal); R51.9 Headache, unspecified; E11.9 Type 2 diabetes mellitus without complications; Z79.899 Other long term (current) drug therapy; Z79.4 Long term (current) use of insulin
CPT/HCPCS: 36415; 70450; 80048; 80076; 83735; 85025; 85610; 85730; 99284

== ENCOUNTER 2023-02-15 09:40 | Outpatient (REF) | payer OTHER, SELFPAY ==
[2023-02-15 11:02] LABS: Alanine Aminotransferase 56 U/L (0-40); Alkaline Phosphatase 107 U/L (39-117); Anion Gap 11 (12-20); Aspartate Amino Transferase 39 U/L (5-37); Bilirubin Total 0.5 mg/dL (0.0-1.0); Blood Urea Nitrogen 12 mg/dL (9-16); Calcium 9.2 mg/dL (8.4-10.2); Carbon Dioxide 27 mmol/L (22-29); Chloride 106 mmol/L (96-108); Cholesterol 210 mg/dL; Estimated Glomerular Filt Rate > 60; Glucose Fasting 205 mg/dL (60-99); HDL Cholesterol 24 mg/dL; Potassium 3.9 mmol/L (3.3-5.1); Sodium 140 mmol/L (135-145); Total Protein 7.5 g/dL (6.5-8.0); Triglycerides 440 mg/dL
[2023-02-15 11:17] LABS: Vitamin D 25-OH Total 18.7 ng/mL (>30)
[2023-02-15 12:10] LABS: Creatinine Urine 258.46 mg/dL; Microalbum/Creatinine Ratio Ur 69.2 ug/mg cr
[2023-02-17 12:58] LABS: TS Negative Control Passed; TS Panel A 2; TS Panel B 0; TS Positive Control Passed; TSpotTB Negative (Negative)
== END 2023-02-15 09:41 | disposition home or self-care (01) ==
LOC: HO.LAB 09:40
PROVIDERS: PCP Internal Medicine; Visit Provider Internal Medicine
DX: Z11.1 Encounter for screening for respiratory tuberculosis (principal); E11.65 Type 2 diabetes mellitus with hyperglycemia; E55.9 Vitamin D deficiency, unspecified; E78.5 Hyperlipidemia, unspecified; I10 Essential (primary) hypertension
CPT/HCPCS: 36415; 80053; 80061; 82043; 82306; 86481

== ENCOUNTER → 2023-03-07 10:57 | Outpatient (BNVA) | payer OTHER, SELFPAY | PROVIDERS: PCP Internal Medicine; Visit Provider Physician Assistant Surgical ==

== ENCOUNTER 2023-03-29 14:25 | Outpatient (REF) | payer OTHER, SELFPAY ==
[2023-03-29 15:34] LABS: Hematocrit 44.9 % (42.0-52.0); Hemoglobin 15.3 g/dl (14.0-18.0); Mean Corpuscular HGB Conc 34.1 g/dl (31.0-36.0); Mean Corpuscular Hemoglobin 30.6 pg (27.0-33.0); Mean Corpuscular Volume 89.8 fL (80.0-98.0); Mean Platelet Volume 9.7 fL (9.4-12.4); Platelet Count 184 X10*3/uL (160-400); Red Cell Distribution Width 13.5 % (11.0-16.0); White Blood Count 9.8 X10*3/uL (4.8-10.8)
== END 2023-03-29 14:26 | disposition home or self-care (01) ==
LOC: HO.LAB 14:25
PROVIDERS: PCP Internal Medicine; Visit Provider Internal Medicine
DX: K92.1 Melena (principal); K92.0 Hematemesis
CPT/HCPCS: 36415; 85027; 99202

== ENCOUNTER 2023-11-29 07:39 | Outpatient (AMB) | payer OTHER, SELFPAY ==
[2023-11-29 07:50] VITALS: BP 166/120; BMI 40.0
--- NOTE | 2023-11-29 07:50 | MHC.PC.OV ---
Vital Signs 11/29/23 07:50 11/29/23 08:22 Height 5 ft 3 in Weight 226 lb BMI 40.0 BP 166/120 H 160/110 H Blood Pressure Location Lt brachial Lt brachial Position Sitting Sitting Intake Visit Reasons: PE Intake Note: Patient here for a physical exam Securities Counselor Required: No Accompanied by: Self / Same As Patient Allergies seafood Allergy (Intermediate, Verified 11/29/23 07:55) Rash Medication List - Last Reconciled 11/29/23 by Jazzmine Johnson MD amlodipine 5 mg PO DAILY 90 days blood pressure monitor As directed blood sugar diagnostic (FreeStyle Lite Strips) Use 1 test strip once a day blood-glucose meter (FreeStyle Lite Meter kit) As directed [CPAP Full FACE MASK medium 14 cm H2O humidified AIR As directed] famotidine 20 mg PO BEDTIME insulin glargine (Lantus Solostar U-100 Insulin) 10 units (0.1 mL) subcut QPM 90 days lancets (FreeStyle Lancets) Use 1 lancet once a day metformin 1,000 mg (2 x 500 mg) PO BIDWMEAL 90 days pantoprazole (Protonix) 40 mg PO DAILY pen needle, diabetic (1st Tier Unifine Pentips) Use 1 pen needle once a day rosuvastatin 20 mg PO DAILY 90 days Tobacco use date assessed: 11/29/23 Dental Screening Dental Screen Date: 11/29/23 Did you have a dental visit in the last 12 months?: Yes Did you have a dental problem in the last 6 months where you did not have access to dental care?: No Was dental information given to patient?: Patient has dentist HPI HPI Comments History of Present Illness Details This is a 38-year-old male with moderate recurrent major depression, diabetes mellitus type 2 with long-term current use of insulin and morbid obesity that comes for his physical exam. Depression stable with medications that he does not know the name prescribed by Psychiatry. A1c within goal. I will add Ozempic. Last diabetic eye exam was 2022 as per patient. No chest pain or shortness of breath. Blood pressure elevated and he took amlodipine this morning. I will add losartan and blood pressure will be recheck in 3 weeks by nurse navigator. He is morbidly obese with a BMI of 40 and declines weight loss surgery. Will start Ozempic to control his blood sugar and help in his weight. [facility] Medical History (Updated 11/29/23 @ 08:20 by Jazzmine Johnson MD) Type 2 diabetes mellitus with hyperglycemia Blood in stool Diabetes mellitus Urge urinary incontinence Morbid obesity Bronchitis Essential hypertension Headache KUNAL (obstructive sleep apnea) Obesity (BMI 35.0-39.9 without comorbidity) Mixed hyperlipidemia Surgical History No pertinent past surgical history Family History Father Essential hypertension Mother No problems noted. Paternal Uncle Myocardial infarct Social History Housing: Apartment Alcohol intake: current Alcohol intake frequency: a few times a month Alcohol type: beer and wine Patient Tobacco Use Status: Never used Tobacco e-Cigarette/Vaping Use: Never Used Second Hand Smoke Exposure: No service: No Current occupational status: employed Current occupational exposures/hazards: No Cognitive needs: No Hearing needs: No Vision needs: No Questionnaire PHQ-9 Over the last 2 weeks, how often have you been bothered by any of the following problems? 1. Little interest or pleasure in doing things: several days 2. Feeling down, depressed, or hopeless: several days 3. Trouble falling or staying asleep, or sleeping too much: several days 4. Feeling tired or having little energy: nearly every day 5. Poor appetite or overeating: several days 6. Feeling bad about yourself - or that you are a failure or have let yourself or your family down: several days 7. Trouble concentrating on things, such as reading the newspaper or watching television: several days 8. Moving or speaking so slowly that other people could have noticed. Or the opposite - being so fidgety or restless that you have been moving around a lot more than usual: not at all 9. Thoughts that you would be better off or of hurting yourself in some way: not at all Total score: 9 Depression Screening Interpretation: Positive Depression Screening Follow-up: Existing condition and Community Mental Health Worker F/U Depression Screening Done: Yes 51447 - PHQ-9 Billing: Yes Source: Developed by Drs. Jaswant LLatha Levy Kurt Kroenke and colleagues, with an educational yolanda from [employer]. Thrive Questionnaire Date Thrive assessed: 11/29/23 I am a: Patient What is your living situation today?: I have a steady place to live Within the past 12 months, did the food you bought not last and you didn't have the money to get more?: Never true Within the past 12 months, did you worry whether your food would run out before you got money to buy more?: Never true Do you have trouble paying for medicines?: No Do you have trouble getting transportation to medical appointments?: No Do you have trouble paying your heating and electricity bill?: No Do you have trouble taking care of your child, family member or friend?: No Do you have trouble with day-to-day activities such as bathing, preparing meals, shopping, managing finances, etc.?: No Are you currently unemployed and looking for a job?: No Are you interested in more education?: No Please select the resources that you would like help with: None Currently or been in a relationship where the following occur: no concerns reported THRIVE Score: 0 AUDIT C Alcohol Use Questionnaire (AUDIT-C) 1. How often do you have a drink containing alcohol?: Monthly or less 2. How many drinks containing alcohol do you have on a typical day when you are drinking?: 1 or 2 3. How often do you have six or more drinks on one occasion?: Never Total Score: 1 Score Reviewed/Action Taken: No STAR-7 AMB Questionnaire STAR-7 Date STAR - 7 assessed: 11/29/23 Feeling nervous, anxious, or on edge: 2 = More than half the days Not being able to stop or control worryin = Not at all Worrying too much about different things: 1 = Several days Trouble relaxin = Not at all Being so restless that it is hard to sit still: 0 = Not at all Becoming easily annoyed or irritable: 0 = Not at all Feeling afraid as if something awful might happen: 1 = Several days Total STAR-7 score (0-4 normal; 5-9 mild; 10-14 moderate; 15-21 severe): 4 Source: Developed by Latha Sanon Kurt Kroenke and colleagues, with an educational yoladna from [employer]. STAR-7 Assessment Billing STAR-7 Assessment Tool: STAR-7 Assessment 04221 Review of Systems Const All systems reviewed & are unremarkable except as noted in HPI and below Eyes Reports no additional complaints, Denies change in vision and Denies other visual disturbances Card Denies chest pain at rest, Denies chest pain with activity, Denies edema, Denies irregular heart rhythm, Denies claudication, Denies dyspnea, Denies dyspnea on exertion, Denies orthopnea, Denies paroxysmal nocturnal dyspnea and Denies slow heart rate Resp Denies cough, Denies dyspnea and Denies dyspnea on exertion GI Denies abdominal pain, Denies change in bowel habits, Denies excessive flatus, Denies nausea and Denies vomiting Denies urinary hesitancy, Denies urinary incontinence and Denies urinary urgency Musc Denies abnormal gait, Denies atrophy, Denies deformity and Denies limited range of motion Skin/Breast Denies bleeding lesions, Denies changing lesions and Denies rash Neuro Denies abnormal gait, Denies behavioral changes, Denies confusion and Denies lack of coordination Psych Denies behavioral changes and Denies confusion Physical exam (Primary Care) Vital Signs: Last Vital Signs BP 166/120 H 11/29/23 07:50 BMI result Body Mass Index 40.0 Tobacco/Smoking Status: Tobacco use Status Tobacco use date assessed 11/29/23 11/29/23 08:00 Patient Tobacco Use Status Never used Tobacco 11/29/23 08:00 e-Cigarette/Vaping Use Never Used 11/29/23 08:00 PHQ-9: PHQ-9 Score PHQ-9: Total score 9 11/29/23 08:08 Depression Screening Interpretation: Positive Depression Screening Follow-up: Existing condition and Community Mental Health Worker F/U Thrive Assessment: Date of Thrive Assessment Date Thrive assessed 11/29/23 11/29/23 08:00 Currently or been in a relationship where the following occur: no concerns reported Const General: No confusion Orientation/consciousness: patient oriented x3 and No confusion HENMT Head: Yes normal to inspection, Yes normocephalic and Yes atraumatic Ears: external ears normal Mouth: lip normal Eyes General: appearance normal, both eyes and all related structures Eyelids: Yes eyelids normal Conjunctivae: conjunctivae normal Neck Neck: Yes normal visual inspection and Yes supple Resp Effort & Inspection: normal respiratory effort Auscultation: clear to auscultation bilaterally Cardio Jugular venous distension: no JVD Rate: regular rate Rhythm: regular rhythm Heart sounds: S1 normal heart sound present and S2 normal heart sound present GI Inspection: Yes normal to inspection Palpation (GI): Soft to palpation and nontender Auscultation: normal bowel sounds Skin General skin exam: no rashes or lesions noted Neuro General: patient oriented x3, no focal motor deficits and No confusion Extrem General: Yes full ROM Psych Appearance: grossly normal Office Procedures Flu Questionnaire Does the patient have a severe egg allergy?: No Does the patient have severe life threatening allergies?: No Does the patient have a fever or illness today?: No Has the patient ever had Guillain-[place] Syndrome?: No Has the patient ever had any past reaction to a flu shot?: No Results AMB Hemoglobin A1c AMB Hemoglobin A1c 6.9 % Last Edit by TODD Cm on 11/29/23 08:01 Immunizations flu vacc [id number] 6mos up(PF) 60 mcg(15 mcgx4)/0.5 mL IM syringe Performing Provider: Jazzmine Johnson MD Performing Location: [facility] Administered by: TODD Cm on 11/29/23 08:21 Dose Route Admin Location Dispensed Lot Number Expiration Date NDC Forming Department End Finder 0.5 mL IM Left Deltoid 0.5 mL [id number] 04/15/24 [id number] [facility] VIS Given Date VIS Provided VIS Publication Date 11/29/23 Single Vaccine 21 Eligibility Eligibility Date Funding Source Not [facility] Eligible 11/29/23 Private Results Reviewed Results Reviewed: Laboratory Last Values Hgb A1c (Clinic) 6.9 % (4.0-6.0) H 11/29/23 07:50 Assessment and Plan Assessment & Plan (1) Physical exam: Code(s): Z00.00 - Encounter for general adult medical examination without abnormal findings Plan: Repeat in a year. (2) Major depressive disorder, recurrent episode, moderate with mood-congruent psychotic features: Code(s): F33.3 - Major depressive disorder, recurrent, severe with psychotic symptoms Plan: Follow-up with psychiatry. (3) Morbid obesity: Code(s): E66.01 - Morbid (severe) obesity due to excess calories Plan: Start diet and exercise. Patient declines weight loss surgery. BMI goal is less than 30. (4) Diabetes mellitus, with long-term current use of insulin: Code(s): E11.9 - Type 2 diabetes mellitus without complications; Z79.4 - terminologist (current) use of insulin Plan: Continue metformin and insulin. Start Ozempic. A1c goal is equal or less than 7%. Orders: Orders AMB Hemoglobin A1c Today E11.65 - Type 2 diabetes mellitus with hyperglycemia Vitamin D 25-OH Total Today E55.9 - Vitamin D deficiency, unspecified Vitamin B12 and Folate Today E53.8 - Deficiency of other specified B group vitamins Thyroid Stimulating Hormone Today E66.01 - Morbid (severe) obesity due to excess calories Erythrocyte Sedimentation Rate Today M25.50 - Pain in unspecified joint CRP High Sensitivity Today M25.50 - Pain in unspecified joint Rheumatoid Factor Today M25.50 - Pain in unspecified joint Lipid Panel Today E78.5 - Hyperlipidemia, unspecified Microalbumin, Random (w Creat) Today E11.9 - Type 2 diabetes mellitus without complications Complete Blood Count Auto Diff Today D64.9 - Anemia, unspecified, K92.1 - Melena Comprehensive [place]. Panel Fast Today E11.65 - Type 2 diabetes mellitus with hyperglycemia JAZZMINE Reflex Titer and Pattern Today M25.50 - Pain in unspecified joint Cyclic Citrullinated Peptide Today M25.50 - Pain in unspecified joint Medications: New cholecalciferol (vitamin D3) 25 mcg PO DAILY 90 days 90 caps 1RF losartan 25 mg PO DAILY 90 days 90 tabs 1RF I10 - Essential (primary) hypertension semaglutide (Ozempic) for 4 weeks 0.25 mg (0.368 mL) subcut QWEEK 28 days 1.472 mL 0RF E11.65 - Type 2 diabetes mellitus with hyperglycemia Refilled pantoprazole (Protonix) 40 mg PO DAILY 20 tabs 0RF Coding Level of Care Code Est Pt Prev Care 18-39y(21769) Diagnoses Physical exam Z00.00 Major depressive disorder, recurrent episode, moderate with mood-congruent psychotic features F33.3 Morbid obesity E66.01 Diabetes mellitus, with long-term current use of insulin E11.9; Z79.4 Additional Codes STAR-7 Assessment Billing - STAR-7 Assessment Tool: STAR-7 Assessment 29434 ([id number]) Time Spent (min) 35
[2023-11-29 08:22] VITALS: BP 160/110
== END 2023-11-29 08:20 | disposition home or self-care (01) ==
PROVIDERS: Visit Provider Internal Medicine
DX: Z00.00 Encounter for general adult medical examination without abnormal findings (principal); F33.3 Major depressive disorder, recurrent, severe with psychotic symptoms; E11.65 Type 2 diabetes mellitus with hyperglycemia; Z23 Encounter for immunization; E66.01 Morbid (severe) obesity due to excess calories; Z79.4 Long term (current) use of insulin
CPT/HCPCS: 83036; 90471; 90686; 99395

== ENCOUNTER 2023-11-29 08:39 | Outpatient (REF) | payer OTHER, SELFPAY ==
[2023-11-29 09:02] LABS: MANUAL DIFF FLAG NO
[2023-11-29 09:34] LABS: Basophils Percent Auto 0.2 % (0-2); Eosinophils Absolute Auto 0.2 X10*3/uL (0.0-0.4); Eosinophils Percent Auto 2.7 % (0-4); Hemoglobin 15.5 g/dl (14.0-18.0); Imm Gran Abs Auto 0.03 X10*3/uL (0.00-0.03); Imm Gran Pct Auto 0.5 % (0.0-0.4); Lymphocytes Absolute Auto 2.3 X10*3/uL (1.2-4.9); Lymphocytes Percent Auto 35.8 % (20-40); Mean Corpuscular HGB Conc 34.4 g/dl (31.0-36.0); Mean Corpuscular Hemoglobin 30.5 pg (27.0-33.0); Mean Corpuscular Volume 88.6 fL (80.0-98.0); Mean Platelet Volume 10.1 fL (9.4-12.4); Monocytes Absolute Auto 0.5 X10*3/uL (0.1-1.2); Monocytes Percent Auto 8.3 % (2-11); Neutrophils Absolute Auto 3.3 x10*3/uL (2.0-8.3); Neutrophils Percent Auto 52.5 % (45-73); Platelet Count 169 X10*3/uL (160-400); Red Blood Count 5.08 X10*6/uL (4.60-5.80); Red Cell Distribution Width 13.4 % (11.0-16.0); White Blood Count 6.4 X10*3/uL (4.8-10.8)
[2023-11-29 10:14] LABS: Creatinine Urine 231.31 mg/dL; Microalbum/Creatinine Ratio Ur 69.1 ug/mg cr (<30)
[2023-11-29 10:16] LABS: Alanine Aminotransferase 24 U/L (0-40); Albumin Level 4.1 g/dL (3.5-5.0); Alkaline Phosphatase 115 U/L (39-117); Anion Gap 12 (12-20); Aspartate Amino Transferase 18 U/L (5-37); Bilirubin Total 0.6 mg/dL (0.0-1.0); Blood Urea Nitrogen 11 mg/dL (9-16); Calcium 9.2 mg/dL (8.4-10.2); Carbon Dioxide 27 mmol/L (22-29); Chloride 105 mmol/L (96-108); Cholesterol 154 mg/dL (<200); Estimated Glomerular Filt Rate > 60; Glucose Fasting 110 mg/dL (60-99); HDL Cholesterol 24 mg/dL (>40); LDL Cholesterol Calculated 102 mg/dL (<100); Potassium 3.3 mmol/L (3.3-5.1); Sodium 141 mmol/L (135-145); Total Protein 7.6 g/dL (6.5-8.0); Triglycerides 143 mg/dL (<150)
[2023-11-29 10:19] LABS: Rheumatoid Factor < 13.0 IU/mL (<15.0)
[2023-11-29 10:32] LABS: Thyroid Stimulating Hormone 1.55 uIU/mL (0.32-4.0); Vitamin D 25-OH Total 11.1 ng/mL (>30)
[2023-11-29 10:45] LABS: Erythrocyte Sedimentation Rate 14 MM/HR (0-15)
[2023-11-29 10:49] LABS: Folate 8.5 ng/mL (> or = 4.0); Vitamin B12 432 pg/mL (200-900)
[2023-11-30 11:57] LABS: CRP High Sensitivity 5.9 mg/L
[2023-11-30 15:43] LABS: Cyclic Citrullinated Peptide <16 UNITS
[2023-12-08 14:08] LABS: Anti Nuclear Antibody Screen NEGATIVE (NEGATIVE)
== END 2023-11-29 08:40 | disposition home or self-care (01) ==
LOC: HO.LAB 08:39
PROVIDERS: PCP Internal Medicine; Visit Provider Internal Medicine
DX: E11.65 Type 2 diabetes mellitus with hyperglycemia (principal); K92.1 Melena; D64.9 Anemia, unspecified; E66.01 Morbid (severe) obesity due to excess calories; E78.5 Hyperlipidemia, unspecified; E55.9 Vitamin D deficiency, unspecified; E53.8 Deficiency of other specified B group vitamins; M25.50 Pain in unspecified joint
CPT/HCPCS: 36415; 80053; 80061; 82043; 82306; 82570; 82607; 82746; 84443; 85025; 85652; 86038; 86141; 86200; 86431

== ENCOUNTER → 2023-12-06 07:02 | Day surgery (SDC) | payer OTHER, SELFPAY | PROVIDERS: PCP Internal Medicine; Visit Provider Internal Medicine | DX: K92.0 Hematemesis (principal); Z53.29 Procedure and treatment not carried out because of patient's decision for other reasons ==

== ENCOUNTER 2023-12-11 22:22 | Emergency (ER) | payer OTHER, SELFPAY ==
[2023-12-11 22:24] VITALS: BP 156/97; PULSE 79; RESP 18; TEMP 36.4; O2SAT 97; BMI 40.2
--- NOTE | 2023-12-11 23:38 | ED_ITS ---
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 He endorses cough, body aches, weakness, sore throat, chills. His symptoms started last night. He denies any sick contacts or recent travel Denies any chest pain, abdominal pain. He endorses nausea but no vomiting Related Data Previous Rx's Medication Instructions Recorded blood-glucose meter (FreeStyle #1 ea 01/20/22 Lite Meter kit) pen needle, diabetic 31 gauge x #100 ea 08/26/22/16 (1st Tier Unifine Pentips) blood pressure monitor #1 ea 11/16/22 CPAP Full FACE MASK medium 14 cm #1 ea 02/21/23 H2O humidified AIR famotidine 20 mg tablet 20 mg PO BEDTIME #30 tabs 03/10/23 insulin glargine 100 unit/mL (3 10 unit (0.1 mL) subcut QPM 90 08/08/23 mL) subcutaneous pen (Lantus days #9 mL Solostar U-100 Insulin) lancets 28 gauge (FreeStyle #100 ea 09/19/23 Lancets) blood sugar diagnostic (FreeStyle #100 ea 09/28/23 Lite Strips) cholecalciferol (vitamin D3) 25 25 mcg PO DAILY 90 days #90 caps 11/29/23 mcg (1,000 unit) capsule losartan 25 mg tablet 25 mg PO DAILY 90 days #90 tabs 11/29/23 pantoprazole 40 mg tablet,delayed 40 mg PO DAILY #20 tabs 11/29/23 release (Protonix) rosuvastatin 40 mg tablet 40 mg PO DAILY 90 days #90 tabs 11/29/23 semaglutide 0.25 mg or 0.5 mg (2 0.25 mg (0.368 mL) subcut QWEEK 28 11/29/23 mg/3 mL) subcutaneous pen injector days #1.472 mL (Ozempic) amlodipine 5 mg tablet 5 mg PO DAILY 90 days #90 tabs 12/10/23 metformin 500 mg tablet 1,000 mg (2 x 500 mg) PO BIDWMEAL 12/10/23 90 days #360 tabs Allergies Allergy/AdvReac Type Severity Reaction Status Date / Time seafood Allergy Intermediate Rash Verified 12/11/23 22:24 Review of Systems Constitutional: Constitutional: Reports body ache(s), Reports chills, Denies fever(s), Reports headache(s), Reports malaise and Reports weakness ENT: Reports headache(s) and Reports sore throat Cardiovascular: Cardiovascular: Denies chest pain and Denies dyspnea Respiratory: Respiratory: Reports cough and Denies dyspnea Gastrointestinal: Gastrointestinal: Denies abdominal pain, Reports nausea and Denies vomiting Musculoskeletal: Musculoskeletal: Denies back pain Integumentary/Breasts: Skin/Breast: Denies rash Neurologic: Reports headache(s) and Reports weakness PMFSH Past Medical History Medical History (Updated 12/12/23 @ 00:09 by Humble Ramirez) Type 2 diabetes mellitus with hyperglycemia Blood in stool Diabetes mellitus Urge urinary incontinence Morbid obesity Bronchitis Essential hypertension Headache KUNAL (obstructive sleep apnea) Obesity (BMI 35.0-39.9 without comorbidity) Mixed hyperlipidemia Surgical History No pertinent past surgical history Family History Family History Father Essential hypertension Mother No problems noted. Paternal Uncle Myocardial infarct Social History Social History Housing: Apartment Alcohol intake: current Alcohol intake frequency: a few times a month Alcohol type: beer and wine Patient Tobacco Use Status: Never used Tobacco e-Cigarette/Vaping Use: Never Used Second Hand Smoke Exposure: No Advance Directives: Yes Advance Directives on File: Yes Advance Directives Date on File: 12/06/23 service: No Current occupational status: employed Current occupational exposures/hazards: No Cognitive needs: No Hearing needs: No Vision needs: No Physical Exam ED Vital Signs: Vital Signs - 24 hr 12/11/23 22:24 Temperature 97.6 F Pulse Rate 79 Respiratory Rate 18 Blood Pressure 156/97 H Pulse Oximetry 97 Oxygen Delivery Method Room Air BMI result Body Mass Index 40.2 Const General: healthy appearing, comfortable, no acute distress, alert and awake Nutritional Appearance: well nourished Orientation/consciousness: patient oriented x3 HENMT Head: Yes normocephalic and Yes atraumatic Throat: Yes posterior oropharynx normal Eyes Eyelids: Yes eyelids normal Conjunctivae: conjunctivae normal Sclerae: sclerae normal Corneas: corneas normal Pupils: Equal, round and reactive pupils present EOM: EOMs intact bilaterally Neck Neck: Yes full ROM Resp Effort & Inspection: normal respiratory effort, able to speak in complete sentences, no audible wheezes and not labored Auscultation: clear to auscultation bilaterally Cardio Rate: regular rate Rhythm: regular rhythm GI Inspection: No distended Palpation (GI): Soft to palpation, not firm, nontender, no guarding and not rigid Skin General skin exam: elasticity normal Neuro General: patient oriented x3 Cranial nerves: Yes Equal, round and reactive pupils present and Yes Bilaterally intact EOM present Cognition (Neuro): normal cognition Extrem Other: Moving all extremities well without any obvious deformities Medical Decision Making Medical Decision Making MDM Narrative: 38-year-old male with past medical history as documented above presents for evaluation of flu-like symptoms. His vital signs are stable on arrival. Plan for viral swabs. His lungs are clear to auscultation, he has not hypoxic or tachypneic. Will hold chest x-ray at this time. Differential Diagnosis Differential Diagnoses: The differential diagnosis associated with the presentation includes Influenza COVID-19 Upper respiratory infection Viral syndrome Lab Data Labs: Lab Results 12/11/23 Range/Units 22:36 Influenza Type A (PCR) NEGATIVE (Negative) Influenza Type B (PCR) NEGATIVE (Negative) RSV RNA Qual (PCR) NEGATIVE (Negative) SARS-CoV-2 RNA (RT-PCR) NEGATIVE (Negative) Discharge Plan Discharge Clinical Impression: Acute upper respiratory infection Patient Disposition: Home, Self-Care Instructions: Upper Respiratory Infection (ED) Additional Instructions: Your workup in the emergency department today was reassuring. You tested negative for COVID, influenza, and RSV. Your symptoms but still likely relating to a virus. Use Motrin/Tylenol for fevers, body aches Hydrate well Follow-up with your primary doctor and return for new or worsening symptoms Prescriptions: No Action (DME) blood pressure monitor Kit See Rx Instructions .Route Qty: 1 0RF Rx Instructions: As directed (DME) CPAP Full FACE MASK medium 14 cm H2O humidified AIR See Rx Instructions .Route .MEDSUPPLY Qty: 1 0RF Rx Instructions: As directed famotidine 20 mg tablet 20 mg PO BEDTIME Qty: 30 1RF insulin glargine [Lantus Solostar U-100 Insulin] 100 unit/mL (3 mL) insulin pen 10 unit subcut QPM 90 Days Qty: 9 1RF (DME) lancets [FreeStyle Lancets] 28 gauge misc See Rx Instructions .Route Qty: 100 1RF Rx Instructions: Use 1 lancet once a day (DME) FreeStyle Lite Strips Strip See Rx Instructions .Route Qty: 100 2RF Rx Instructions: Use 1 test strip once a day cholecalciferol (vitamin D3) 25 mcg (1,000 unit) capsule 25 mcg PO DAILY 90 Days Qty: 90 1RF rosuvastatin 40 mg tablet 40 mg PO DAILY 90 Days Qty: 90 1RF amlodipine 5 mg tablet 5 mg PO DAILY 90 Days Qty: 90 0RF metformin 500 mg tablet 1,000 mg PO BIDWMEAL 90 Days Qty: 360 3RF pantoprazole [Protonix] 40 mg tablet,delayed release (DR/EC) 40 mg PO DAILY Qty: 20 0RF losartan 25 mg tablet 25 mg PO DAILY 90 Days Qty: 90 1RF Ozempic 0.25 mg or 0.5 mg (2 mg/3 mL) pen injector 0.25 mg subcut QWEEK 28 Days Qty: 1.472 0RF Rx Instructions: for 4 weeks (DME) blood-glucose meter [FreeStyle Lite Meter] Kit See Rx Instructions .Route Qty: 1 0RF Rx Instructions: As directed (DME) pen needle, diabetic [1st Tier Unifine Pentips] 31 gauge x 5/16 needle See Rx Instructions .Route Qty: 100 3RF Rx Instructions: Use 1 pen needle once a day Stand Alone Forms: Work/School Release
[2023-12-11 23:46] LABS: Influenza A PCR NEGATIVE (Negative); Influenza B PCR NEGATIVE (Negative); Resp Syncy Virus RNA Qual PCR NEGATIVE (Negative); SARS COV2 PCR INHOUSE NEGATIVE (Negative)
[2023-12-12 00:24] VITALS: O2SAT 100
== END 2023-12-12 00:27 | disposition home or self-care (01) ==
PROVIDERS: Emergency Provider Emergency Medicine; PCP Internal Medicine
DX: J06.9 Acute upper respiratory infection, unspecified (principal); R05.9 Cough, unspecified; M79.10 Myalgia, unspecified site; R53.1 Weakness; Z79.899 Other long term (current) drug therapy; Z20.822 Contact with and (suspected) exposure to COVID-19; Z11.52 Encounter for screening for COVID-19
CPT/HCPCS: 0241U; 99283; 99284

== ENCOUNTER 2024-01-24 12:25 | Day surgery (SDC) | payer OTHER, SELFPAY ==
[2024-01-20 09:30] VITALS: BMI 40.0
--- NOTE | 2024-01-23 11:00 | HO.ANESPROP2 ---
Documented by User: Opal Carranza NP 01/23/24 11:02 HPI - Anesthesia Eval Consult details Narrative: 38yo M for Upper Endoscopy [facility] Active Problems Active Problems: All Active Problems Diabetes mellitus, with long-term current use of insulin (Acute) Physical exam (Acute) Polyarthralgia (Acute) Hematemesis (Acute) Asthma (Acute) STAR (generalized anxiety disorder) (Acute) Major depressive disorder, recurrent episode, moderate with mood-congruent psychotic features (Acute) Abnormal stress ECG with treadmill (Acute) Shortness of breath (Acute) Chest discomfort (Acute) Anemia (Acute) GERD (gastroesophageal reflux disease) (Acute) Class 2 obesity with body mass index (BMI) of 39.0 to 39.9 in adult (Acute) Blood in stool (Acute) Essential hypertension (Acute) Urge urinary incontinence (Acute) Morbid obesity (Acute) Bronchitis (Acute) KUNAL (obstructive sleep apnea) (Acute) Mixed hyperlipidemia (Acute) Past Medical History Medical History Blood in stool Type 2 diabetes mellitus with hyperglycemia Urge urinary incontinence Morbid obesity Bronchitis Essential hypertension Headache KUNAL (obstructive sleep apnea) Obesity (BMI 35.0-39.9 without comorbidity) Mixed hyperlipidemia Family History Family History Father Essential hypertension Mother No problems noted. Paternal Uncle Myocardial infarct Surgical History Surgical History No pertinent past surgical history Social History Social History Housing: Apartment Alcohol intake: current Alcohol intake frequency: a few times a month Alcohol type: beer and wine Patient Tobacco Use Status: Never used Tobacco e-Cigarette/Vaping Use: Never Used Second Hand Smoke Exposure: No Advance Directives: No Advance Directives Information Provided: Yes Advance Directives Date on File: 12/06/23 service: No Current occupational status: employed Current occupational exposures/hazards: No Cognitive needs: No Hearing needs: No Vision needs: No Meds Allergies Allergy/AdvReac Type Severity Reaction Status Date / Time seafood Allergy Intermediate Rash Verified 01/24/24 12:38 Exam Height,Weight and Vital Signs: Height 5 ft 3 in Weight 102.512 kg Assessment and Plan Assessment Anesthesia Assessment: Chart Reviewed Documented by User: Janet Naqvi MD 01/24/24 13:09 PMFSH Past Medical History Medical History Blood in stool Type 2 diabetes mellitus with hyperglycemia Urge urinary incontinence Morbid obesity Bronchitis Essential hypertension Headache KUNAL (obstructive sleep apnea) Obesity (BMI 35.0-39.9 without comorbidity) Mixed hyperlipidemia Family History Family History Father Essential hypertension Mother No problems noted. Paternal Uncle Myocardial infarct Surgical History Surgical History No pertinent past surgical history History of Problems with Anesthesia: No Social History Social History Housing: Apartment Alcohol intake: current Alcohol intake frequency: a few times a month Alcohol type: beer and wine Patient Tobacco Use Status: Never used Tobacco e-Cigarette/Vaping Use: Never Used Second Hand Smoke Exposure: No Advance Directives: No Advance Directives Information Provided: Yes Advance Directives Date on File: 12/06/23 service: No Current occupational status: employed Current occupational exposures/hazards: No Cognitive needs: No Hearing needs: No Vision needs: No Meds Allergies Allergy/AdvReac Type Severity Reaction Status Date / Time seafood Allergy Intermediate Rash Verified 01/24/24 12:38 Exam Airway Mallampati Class: III TM Dist: >3cm Neck ROM: Full Loose/Missing/Broken Teeth: No Heart: RRR Lungs: CTA Assessment and Plan Assessment Anesthesia Assessment: Anesthesia Plan Discussed Final Anesthetic Review History of Problems with Anesthesia: No NPO: Yes ASA Class: III Final Preanesthetic Review: Meds/Allgs Chart Reviewed, Consent Obtained/Reviewed and Anes Risks/Benef Reviewed Patient Risk: Intermediate Procedure Risk: Intermediate Anesthetic Plan Anesthetic Plan: MAC: Disposition: Standard PACU
[2024-01-24 12:41] VITALS: BMI 39.9
[2024-01-24 13:11] VITALS: BP 170/97; PULSE 81; RESP 15; TEMP 37.1; O2SAT 96
[2024-01-24 13:11] LABS: Glucose, Whole Blood 108 mg/dL (60-115)
[2024-01-24] MEDS: Lactated Ringers 1,000 ML 100 ML IVCONT (13:13)
--- NOTE | 2024-01-24 13:13 | MHC.SHP ---
Pre-Procedural Eval Section A - 24 Hr Update-Section A only Date of Service: 01/24/24 Section B - Complete if H&P > 30 days Chief Complaint: Hematemesis Details of Present Illness: Blood in stool Bronchitis Diabetes mellitus Essential hypertension Headache Mixed hyperlipidemia Morbid obesity Obesity (BMI 35.0-39.9 without comorbidity) KUNAL (obstructive sleep apnea) Urge urinary incontinence Surgical History No pertinent past surgical history Allergies: Allergies Allergy/AdvReac Type Severity Reaction Status Date / Time seafood Allergy Intermediate Rash Verified 01/24/24 12:38 Review of Systems Review of Systems Comment: Ten point ROS negative Exam Exam Comment: Gen appear: No acute distress HEENT: no icterus Chest: No overt resp distress Abd: soft, nontender, nondistended Psych: Stable affect, answering questions appropriately Neuro: A/Ox3 noted to move all extremities spontaneously Ext: no peripheral edema Plan Diagnosis/Plan: Unchanged I have reviewed the history and physical and performed a pertinent physical examination on my patient. No changes have occurred unless specified. Time Spent With Patient Time: Total time managing care of this patient today ____ minutes.
--- NOTE | 2024-01-24 13:47 | P.OP_ITS ---
Operative Note Operative Note Date of Service: 01/24/24 Narrative: Procedure: Esophagogastroduodenoscopy Endoscopist: Alexa Kwong MD Indication: Intermittent hematemesis Anesthesia Provider: Tanya Alas CRNA Anesthesia Type: MAC ?? EGD Procedure:?? The procedure, indications, preparation and potential complications were reviewed with the patient, who indicated understanding and gave written informed consent to proceed. A physical exam was performed. A microfilmer was utilized to assist with the encounter. The endoscope was introduced through the mouth, and advanced to the second part of duodenum. The mucosa was carefully examined on slow withdrawal of the endoscope. The patient tolerated the procedure well. There were no immediate complications.? ? EGD Findings:? * Esophagus:? Edema, erythema and a few erosions noted just at the GE junction. The Z line was at 35 cm in irregular up to 34 cm. There was a small hiatal hernia with the diaphragmatic hiatus at 38 cm. GE junction biopsies were taken for histology. * Stomach:? Normal mucosa was noted in the stomach. A small subepithelial nodule measuring 1 cm was noted in the antrum along the greater curvature. Bite on bite cold forceps biopsies were taken for histology. Retroflexion of the cardia revealed Hill grade 3 hiatal hernia. * Duodenum:? Erythema and edema noted in the duodenal bulb consistent with peptic duodenitis. Remaining mucosa was normal in the whole of the examined duodenum. Cold forceps biopsies were taken from duodenal bulb and second portion of the duodenum. ? EGD Impressions:? * Grade a esophagitis * Irregular Z-line * Hiatal hernia * Subepithelial antral nodule * Peptic duodenitis Recommendations:?? * Follow biopsy results. Our office will call or send a letter with results within 7-10 days. * Continue PPI therapy. * Avoid NSAIDs. Above has been reviewed with the patient.
[2024-01-24 13:51] VITALS: BP 151/91; PULSE 103; RESP 18; TEMP 36.5; O2SAT 95
[2024-01-24 14:06] VITALS: BP 157/107; PULSE 78; RESP 18; TEMP 36.4; O2SAT 96
== END 2024-01-24 15:23 | disposition home or self-care (01) ==
PROVIDERS: PCP Internal Medicine; Visit Provider Internal Medicine
PROC: 0DJ08ZZ Inspection of Upper Intestinal Tract, Via Natural or Artificial Opening Endoscopic (ICD-10-PCS; CPT 43235; principal; 2024-01-24 14:50)
DX: K92.0 Hematemesis (principal); K20.90 Esophagitis, unspecified without bleeding; K29.50 Unspecified chronic gastritis without bleeding; K20.80 Other esophagitis without bleeding; K22.89 Other specified disease of esophagus; K44.9 Diaphragmatic hernia without obstruction or gangrene; I10 Essential (primary) hypertension; E11.9 Type 2 diabetes mellitus without complications; E78.5 Hyperlipidemia, unspecified; E66.9 Obesity, unspecified; Z79.4 Long term (current) use of insulin; Z79.899 Other long term (current) drug therapy
CPT/HCPCS: 43239; 82947; 88305; 88313; 88342; J2704; J3010

== ENCOUNTER → 2024-01-24 12:25 | Outpatient (BNV) | payer OTHER, SELFPAY | PROVIDERS: PCP Internal Medicine; Visit Provider Internal Medicine | DX: K20.90 Esophagitis, unspecified without bleeding (principal); K22.89 Other specified disease of esophagus; K44.9 Diaphragmatic hernia without obstruction or gangrene; K31.89 Other diseases of stomach and duodenum; K29.80 Duodenitis without bleeding | CPT/HCPCS: 43239 ==

== ENCOUNTER 2024-05-24 01:41 | Emergency (ER) | payer OTHER, SELFPAY ==
--- NOTE | ~2024-05-24 | XR_ITS ---
EXAMINATION: XR CHEST CLINICAL INFORMATION: Chest pain. COMPARISON: 11/25/2022 TECHNIQUE: Frontal view of the chest was obtained. FINDINGS: No significant abnormality is noted involving the heart, lungs, mediastinum, bony thorax or soft tissues. XR/XR chest 1V IMPRESSION: Unremarkable examination.
[2024-05-24 02:07] VITALS: BP 144/99; PULSE 67; RESP 18; TEMP 36.9; O2SAT 96; BMI 39.3
--- NOTE | 2024-05-24 02:13 | ECG_ITS ---
Test Reason : chest pain Blood Pressure : / mmHG Vent. Rate : 065 BPM Atrial Rate : 065 BPM P-R Int : 178 ms QRS Dur : 082 ms QT Int : 370 ms P-R-T Axes : 023 031 033 degrees QTc Int : 384 ms Normal sinus rhythm Nonspecific T wave abnormality Abnormal ECG When compared with ECG of 25-NOV-2022 11:14, Nonspecific T wave abnormality, worse in Lateral leads Referred By: Generic ED Physician Electronically Signed By:CLEMENCIA DOYLE MD
[2024-05-24 02:29] LABS: MANUAL DIFF FLAG NO
[2024-05-24 02:33] LABS: Basophils Percent Auto 0.1 % (0-2); Eosinophils Absolute Auto 0.2 X10*3/uL (0.0-0.4); Eosinophils Percent Auto 1.7 % (0-4); Hematocrit 39.7 % (42.0-52.0); Imm Gran Abs Auto 0.02 X10*3/uL (0.00-0.03); Imm Gran Pct Auto 0.2 % (0.0-0.4); Lymphocytes Absolute Auto 3.2 X10*3/uL (1.2-4.9); Lymphocytes Percent Auto 35.8 % (20-40); Mean Corpuscular HGB Conc 35.3 g/dl (31.0-36.0); Mean Corpuscular Hemoglobin 31.1 pg (27.0-33.0); Mean Corpuscular Volume 88.2 fL (80.0-98.0); Mean Platelet Volume 9.6 fL (9.4-12.4); Monocytes Absolute Auto 0.6 X10*3/uL (0.1-1.2); Monocytes Percent Auto 6.4 % (2-11); Neutrophils Percent Auto 55.8 % (45-73); Platelet Count 155 X10*3/uL (160-400); Red Cell Distribution Width 13.8 % (11.0-16.0); White Blood Count 8.9 X10*3/uL (4.8-10.8)
[2024-05-24 02:41] LABS: Anion Gap 12 (12-20); Blood Urea Nitrogen 11 mg/dL (9-16); Calcium 9.4 mg/dL (8.4-10.2); Carbon Dioxide 26 mmol/L (22-29); Chloride 107 mmol/L (96-108); Creatinine Clr Calc Pharmacy 110.9; Estimated Glomerular Filt Rate > 60; Glucose Random 130 mg/dL (60-115); Potassium 3.1 mmol/L (3.3-5.1); Sodium 142 mmol/L (135-145)
[2024-05-24 02:49] LABS: Troponin-I High Sensitivity 3.8 ng/L (<3.5-35.0)
[2024-05-24 05:26] VITALS: BP 143/87; PULSE 66; RESP 15; TEMP 36.6; O2SAT 97
--- NOTE | 2024-05-24 05:43 | ED.CHESTPAIN ---
HPI - Chest Pain General Chief Complaint: Chest Pain Stated Complaint: back and rib pain when he lays down Time Seen by Provider: 05/24/24 05:27 Source: patient and family Mode of arrival: ambulatory Limitations: language barrier History of Present Illness ED Provider: Dr. Benton HPI narrative: patient with 2 days of constant chest pain on the left side. He denies pain with exertion, denies trauma, states the pain is worse with movement. Onset (ago): day(s) Related Data Previous Rx's ?Medication ?Instructions ?Recorded pen needle, diabetic 31 gauge x #100 ea 08/26/22 5/16 (1st Tier Unifine Pentips) blood pressure monitor #1 ea 11/16/22 CPAP Full FACE MASK medium 14 cm #1 ea 02/21/23 H2O humidified AIR cholecalciferol (vitamin D3) 25 25 mcg PO DAILY 90 days #90 caps 11/29/23 mcg (1,000 unit) capsule losartan 25 mg tablet 25 mg PO DAILY 90 days #90 tabs 11/29/23 rosuvastatin 40 mg tablet 40 mg PO DAILY 90 days #90 tabs 11/29/23 metformin 500 mg tablet 1,000 mg (2 x 500 mg) PO BIDWMEAL 12/10/23 90 days #360 tabs blood sugar diagnostic (FreeStyle #100 ea 12/20/23 Lite Strips) blood-glucose meter (FreeStyle #1 ea 12/20/23 Lite Meter kit) lancets 28 gauge (FreeStyle #100 ea 12/20/23 Lancets) omeprazole 20 mg capsule,delayed 20 mg PO DAILY #90 caps 01/24/24 release amlodipine 5 mg tablet 5 mg PO DAILY 90 days #90 tabs 03/07/24 insulin glargine 100 unit/mL (3 10 unit (0.1 mL) subcut QPM 90 03/21/24 mL) subcutaneous pen (Lantus days #9 mL Solostar U-100 Insulin) naproxen 500 mg tablet (Naprosyn) 500 mg PO BID #20 tabs 05/24/24 Allergies Allergy/AdvReac Type Severity Reaction Status Date / Time seafood Allergy Intermediate Rash Verified 05/24/24 02:11 Review of Systems Review of Systems: Yes all other systems are reviewed and are negative Neurologic: Denies Sensory deficit (Neuro) PMF Past Medical History Medical History Blood in stool Type 2 diabetes mellitus with hyperglycemia Urge urinary incontinence Morbid obesity Bronchitis Essential hypertension Headache KUNAL (obstructive sleep apnea) Obesity (BMI 35.0-39.9 without comorbidity) Mixed hyperlipidemia Surgical History No pertinent past surgical history Family History Family History Father Essential hypertension Mother No problems noted. Paternal Uncle Myocardial infarct Social History Social History Housing: Apartment Alcohol intake: current Alcohol intake frequency: a few times a month Alcohol type: beer and wine Patient Tobacco Use Status: Never used Tobacco e-Cigarette/Vaping Use: Never Used Second Hand Smoke Exposure: No Advance Directives Date on File: 12/06/23 Do you have a plan to hurt others: No Plan service: No Current occupational status: employed Current occupational exposures/hazards: No Cognitive needs: No Hearing needs: No Vision needs: No Physical Exam Vital Signs: Vital Signs: Last Vital Signs Temp 97.9 F 05/24/24 05:26 Pulse 66 05/24/24 05:26 Resp 15 05/24/24 05:26 BP 143/87 H 05/24/24 05:26 Pulse Ox 97 05/24/24 05:26 O2 Del Method Room Air 05/24/24 05:26 BMI result Body Mass Index 39.3 Const: General: healthy appearing Nutritional Appearance: average body habitus Orientation/consciousness: oriented to person and patient oriented x3 Limitations: no limitations HEENT: Head: Yes normal to inspection Ears: external ears normal General nose exam: Normal external nose present Mouth: Normal oral and palatal mucosa present and oropharynx normal Throat: Yes posterior oropharynx normal Eyes: General: appearance normal, both eyes and all related structures Neck: Other: supple Neck: Yes normal visual inspection Chest: Other: reproducible chest pain to palpation on the left side Chest palpation & inspection: normal inspection of the chest Resp: Auscultation: clear to auscultation bilaterally Cardio: Jugular venous distension: no JVD Rate: regular rate Rhythm: regular rhythm Heart sounds: S1 normal heart sound present and S2 normal heart sound present GI: Inspection: Yes normal to inspection Palpation (GI): Soft to palpation, nontender and No hepatosplenomegaly present Auscultation: normal bowel sounds : General: Yes no CVA tenderness Back/Spine/Pelvis: Back: no CVA tenderness Skin: Other: the patient with verucas lesion to his left thumb. Neuro: General: oriented to person and patient oriented x3 Cranial nerves: Yes CN's II-XII intact bilaterally Motor exam (neuro): 5/5 motor strength present throughout Sensory Exam: No Sensory deficit (Neuro) Extrem: General: Yes normal to inspection Psych: Appearance: grossly normal Course Reevaluation(s) Reevaluation #1: EKG, blood work, CXR all negative with reproducible pain, will dc on NSAIDS for costrochondritis Time: 05:48 Medical Decision Making Differential Diagnosis Differential Diagnoses: The differential diagnosis associated with the presentation includes (STEMI, cardiac ischemia, pneumonia, costrochodritis) Admission/Observation Consideration of admission/observation: Escalation of care including admission/observation considered (Upon arrival patient was considered for admission) Lab Data 05/24/24 02:24 05/24/24 02:24 Labs: Lab Results 05/24/24 05/24/24 Range/Units 02:24 05:25 WBC 8.9 (4.8-10.8) X10*3/uL RBC 4.50 L (4.60-5.80) X10*6/uL Hgb 14.0 (14.0-18.0) g/dl Hct 39.7 L (42.0-52.0) % MCV 88.2 (80.0-98.0) fL MCH 31.1 (27.0-33.0) pg MCHC 35.3 (31.0-36.0) g/dl RDW 13.8 (11.0-16.0) % Plt Count 155 L (160-400) X10*3/uL MPV 9.6 (9.4-12.4) fL Immature Gran % (Auto) 0.2 (0.0-0.4) % Neut % (Auto) 55.8 (45-73) % Lymph % (Auto) 35.8 (20-40) % [place] % (Auto) 6.4 (2-11) % Eos % (Auto) 1.7 (0-4) % Baso % (Auto) 0.1 (0-2) % Lymph # (Auto) 3.2 (1.2-4.9) X10*3/uL [place] # (Auto) 0.6 (0.1-1.2) X10*3/uL Eos # (Auto) 0.2 (0.0-0.4) X10*3/uL Baso # (Auto) 0.0 (0.0-0.2) X10*3/uL Abs Immat Gran (auto) 0.02 (0.00-0.03) X10*3/uL Absolute Neuts (auto) 5.0 (2.0-8.3) x10*3/uL Absolute Nucleated RBC 0.000 (0.0-0.012) X10*3/uL Nucleated RBC % (auto) 0.0 (0.0-0.2) /100WBC Sodium 142 (135-145) mmol/L Potassium 3.1 L (3.3-5.1) mmol/L Chloride 107 (96-108) mmol/L Carbon Dioxide 26 (22-29) mmol/L Anion Gap 12 (12-20) BUN 11 (9-16) mg/dL Creatinine 0.95 (0.5-1.4) mg/dL Estim Creat Clear Calc 110.9 Estimated GFR > 60 Random Glucose 130 H (60-115) mg/dL Calcium 9.4 (8.4-10.2) mg/dL Troponin I High Sens 3.8 3.0 (<3.5-35.0) ng/L Independent Interpretation I performed an independent interpretation of an: EKG (sinus 74, no st or twave changes) and Plain X-Ray (no infiltrate) Independent Historian Clinical information obtained from an independent historian. History obtained from or confirmed by: Friend Tests considered The following testing was considered but not selected: CT of chest was considered but patient with no PE risk factors Prescription Management I considered prescription management with: Antibiotic (no evidence of pneumonia on xray) Chronic Conditions Patient?s care impacted by: Diabetes and Hypertension Discharge Plan Discharge Clinical Impression: Costalchondritis, Atypical chest pain Patient Disposition: Home, Self-Care Prescriptions: New naproxen [Naprosyn] 500 mg tablet 500 mg PO BID Qty: 20 0RF No Action (DME) blood pressure monitor Kit See Rx Instructions .Route Qty: 1 0RF Rx Instructions: As directed (DME) CPAP Full FACE MASK medium 14 cm H2O humidified AIR See Rx Instructions .Route .MEDSUPPLY Qty: 1 0RF Rx Instructions: As directed cholecalciferol (vitamin D3) 25 mcg (1,000 unit) capsule 25 mcg PO DAILY 90 Days Qty: 90 1RF rosuvastatin 40 mg tablet 40 mg PO DAILY 90 Days Qty: 90 1RF metformin 500 mg tablet 1,000 mg PO BIDWMEAL 90 Days Qty: 360 3RF (DME) blood-glucose meter [FreeStyle Lite Meter] Kit See Rx Instructions .Route Qty: 1 0RF Rx Instructions: As directed (DME) FreeStyle Lite Strips Strip See Rx Instructions .Route Qty: 100 2RF Rx Instructions: Use 1 test strip once a day (DME) lancets [FreeStyle Lancets] 28 gauge misc See Rx Instructions .Route Qty: 100 1RF Rx Instructions: Use 1 lancet once a day amlodipine 5 mg tablet 5 mg PO DAILY 90 Days Qty: 90 0RF insulin glargine [Lantus Solostar U-100 Insulin] 100 unit/mL (3 mL) insulin pen 10 unit subcut QPM 90 Days Qty: 9 1RF omeprazole 20 mg capsule,delayed release(DR/EC) 20 mg PO DAILY Qty: 90 0RF losartan 25 mg tablet 25 mg PO DAILY 90 Days Qty: 90 1RF (DME) pen needle, diabetic [1st Tier Unifine Pentips] 31 gauge x 5/16 needle See Rx Instructions .Route Qty: 100 3RF Rx Instructions: Use 1 pen needle once a day Referrals: Jazzmine Alvarado MD [Primary Care Provider] - 3 days Print Language: Slovenian
[2024-05-24 06:22] VITALS: BP 147/81; PULSE 65; RESP 18; TEMP 36.7; O2SAT 98
== END 2024-05-24 06:23 | disposition home or self-care (01) ==
PROVIDERS: Emergency Provider Emergency Medicine; PCP Internal Medicine
DX: M94.0 Chondrocostal junction syndrome [Tietze] (principal); R07.89 Other chest pain; E11.9 Type 2 diabetes mellitus without complications; I10 Essential (primary) hypertension; E78.5 Hyperlipidemia, unspecified; Z79.02 Long term (current) use of antithrombotics/antiplatelets; Z79.899 Other long term (current) drug therapy; Z79.4 Long term (current) use of insulin
CPT/HCPCS: 36415; 71045; 80048; 84484; 85025; 93005; 99283; 99284

== ENCOUNTER → 2024-05-24 02:13 | Outpatient (BNV) | payer OTHER, SELFPAY | PROVIDERS: Emergency Provider Emergency Medicine; PCP Internal Medicine; Visit Provider Internal Medicine Cardiovascular Disease | DX: R07.9 Chest pain, unspecified (principal); R94.31 Abnormal electrocardiogram [ECG] [EKG] | CPT/HCPCS: 93010 ==

== ENCOUNTER 2024-05-28 10:49 | Outpatient (AMB) | payer OTHER, SELFPAY ==
--- NOTE | 2024-05-28 10:59 | A.OFFPC_ITS ---
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 Accompanied by: Self / Same As Patient Allergies seafood Allergy (Intermediate, Verified 05/28/24 11:17) Rash Medication List - Last Reconciled 05/28/24 by Jazzmine Johnson MD amlodipine 5 mg PO DAILY 90 days blood pressure monitor As directed blood sugar diagnostic (FreeStyle Lite Strips) Use 1 test strip once a day blood-glucose meter (FreeStyle Lite Meter kit) As directed cholecalciferol (vitamin D3) 25 mcg PO DAILY 90 days [CPAP Full FACE MASK medium 14 cm H2O humidified AIR As directed] insulin glargine (Lantus Solostar U-100 Insulin) 10 units (0.1 mL) subcut QPM 90 days lancets (FreeStyle Lancets) Use 1 lancet once a day losartan 25 mg PO DAILY 90 days metformin 1,000 mg (2 x 500 mg) PO BIDWMEAL 90 days naproxen (Naprosyn) 500 mg PO BID omeprazole 20 mg PO DAILY pen needle, diabetic (1st Tier Unifine Pentips) Use 1 pen needle once a day rosuvastatin 40 mg PO DAILY 90 days Tobacco use date assessed: 11/29/23 Dental Screening Dental Screen Date: 11/29/23 HPI HPI Comments History of Present Illness Details This is a 39-year-old male with diabetes mellitus type 2 on long-term current use of insulin, hypertension, mixed hyperlipidemia, GERD and moderate major depression in remission that comes today for follow-up on his conditions. A1c within goal. Blood pressure stable. Lipid panel will be order and his LDL goal should be less than 70. GERD has improved with PPIs. In remission for his depression. Denies any chest pain or shortness on breath. [facility] Medical History (Updated 05/28/24 @ 12:15 by Jazzmine Johnson MD) Blood in stool Type 2 diabetes mellitus with hyperglycemia Urge urinary incontinence Morbid obesity Bronchitis Essential hypertension Headache KUNAL (obstructive sleep apnea) Obesity (BMI 35.0-39.9 without comorbidity) Mixed hyperlipidemia Surgical History No pertinent past surgical history Family History Father Essential hypertension Mother No problems noted. Paternal Uncle Myocardial infarct Social History Housing: Apartment Alcohol intake: current Alcohol intake frequency: a few times a week Alcohol type: beer and wine Patient Tobacco Use Status: Never used Tobacco e-Cigarette/Vaping Use: Never Used Second Hand Smoke Exposure: No Advance Directives Date on File: 12/06/23 service: No Current occupational status: employed Current occupational exposures/hazards: No Cognitive needs: No Hearing needs: No Vision needs: No Questionnaire Thrive Questionnaire Date Thrive assessed: 11/29/23 STAR-7 AMB Questionnaire STAR-7 Date STAR - 7 assessed: 11/29/23 Source: Developed by Drs. Jaswant Aguayo, Latha Merrill, Nadir Merlos and colleagues, with an educational yolanda from [employer]. Review of Systems Const All systems reviewed & are unremarkable except as noted in HPI and below Card Denies chest pain at rest, Denies chest pain with activity, Denies edema, Denies irregular heart rhythm, Denies claudication, Denies dyspnea, Denies dyspnea on exertion, Denies orthopnea, Denies paroxysmal nocturnal dyspnea and Denies slow heart rate Resp Denies cough, Denies dyspnea and Denies dyspnea on exertion GI Denies abdominal pain, Denies change in bowel habits, Denies excessive flatus, Denies nausea and Denies vomiting Denies urinary hesitancy, Denies urinary incontinence and Denies urinary urgency Neuro Denies lack of coordination Physical exam (Primary Care) Vital Signs: Last Vital Signs BP 136/82 05/28/24 11:02 BMI result Body Mass Index 39.1 BMI Assessment/Plan discussion: High BMI High, discussed plan: lifestyle, weight reduction, dietary and physical activity Tobacco/Smoking Status: Tobacco use Status Tobacco use date assessed 11/29/23 05/28/24 11:00 Patient Tobacco Use Status Never used Tobacco 05/28/24 11:00 e-Cigarette/Vaping Use Never Used 05/28/24 11:00 Thrive Assessment: Date of Thrive Assessment Date Thrive assessed 11/29/23 05/28/24 11:00 Resp Effort & Inspection: normal respiratory effort Auscultation: clear to auscultation bilaterally Cardio Jugular venous distension: no JVD Rate: regular rate Rhythm: regular rhythm Heart sounds: S1 normal heart sound present and S2 normal heart sound present Extrem General: Yes full ROM Results AMB Hemoglobin A1c AMB Hemoglobin A1c 6.5 % Last Edit by TODD Cm on 05/28/24 11:1 2 Results Reviewed Results Reviewed: Laboratory Last Values Hgb A1c (Clinic) 6.5 % (4.0-6.0) H 05/28/24 10:58 Assessment and Plan Assessment & Plan (1) Diabetes mellitus, with long-term current use of insulin: Code(s): E11.9 - Type 2 diabetes mellitus without complications; 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 Decrease insulin to 5 units. Start Trulicity. A1c goal is equal or less than 7%. (2) GERD (gastroesophageal reflux disease): Code(s): K21.9 - Gastro-esophageal reflux disease without esophagitis Plan: Continue PPIs. (3) Essential hypertension: Code(s): I10 - Essential (primary) hypertension Plan: Continue losartan. Blood pressure goal is equal or less than 130/80. (4) Mixed hyperlipidemia: Code(s): E78.2 - Mixed hyperlipidemia Plan: Continue statins. Repeat lipid panel. LDL goal is less than 70. (5) Major depressive disorder, recurrent episode, moderate with mood-congruent psychotic features: Code(s): F33.3 - Major depressive disorder, recurrent, severe with psychotic symptoms Plan: In remission. Orders: Orders AMB Hemoglobin A1c Today E11.9 - Type 2 diabetes mellitus without complications, Z79.4 - nursing home (current) use of insulin Lipid Panel Today E78.5 - Hyperlipidemia, unspecified Microalbumin, Random (w Creat) Today E11.9 - Type 2 diabetes mellitus without complications Comprehensive [place]. Panel Fast Today E11.9 - Type 2 diabetes mellitus without complications, Z79.4 - [employer] (current) use of insulin Medications: New dulaglutide (Trulicity) 0.75 mg (0.5 mL) subcut QWEEK 90 days 6.5 mL 0RF E11.9 - Type 2 diabetes mellitus without complications, Z79.4 - nursing home (current) use of insulin Changed From insulin glargine (Lantus Solostar U-100 Insulin) 10 units (0.1 mL) subcut QPM 90 days 9 mL 1RF E11.65 - Type 2 diabetes mellitus with hyperglycemia To insulin glargine (Lantus Solostar U-100 Insulin) 5 units (0.05 mL) subcut QPM 90 days 4.5 mL 1RF E11.65 - Type 2 diabetes mellitus with hyperglycemia Refilled omeprazole 20 mg PO DAILY 90 caps 0RF K20.90 - Esophagitis, unspecified without bleeding Coding Level of Care Code Est Pt Level 4 (68426) Complex EM visit Add On G2211 Diagnoses Type 2 diabetes mellitus without complication, with long-term current use of insulin E11.9; Z79.4 Diabetes mellitus type: type 2 Diabetes mellitus complication status: without complication GERD (gastroesophageal reflux disease) K21.9 Essential hypertension I10 Mixed hyperlipidemia E78.2 Major depressive disorder, recurrent episode, moderate with mood-congruent psychotic features F33.3 Time Spent (min) 23
[2024-05-28 11:02] VITALS: BP 136/82; BMI 39.1
== END 2024-05-28 11:31 | disposition home or self-care (01) ==
PROVIDERS: PCP Internal Medicine; Visit Provider Internal Medicine
DX: E11.9 Type 2 diabetes mellitus without complications (principal); Z79.4 Long term (current) use of insulin; F33.3 Major depressive disorder, recurrent, severe with psychotic symptoms; K21.9 Gastro-esophageal reflux disease without esophagitis; I10 Essential (primary) hypertension; E78.2 Mixed hyperlipidemia
CPT/HCPCS: 83036; 99214; G2211

== ENCOUNTER 2024-07-10 07:15 | Outpatient (REF) | payer OTHER, SELFPAY ==
[2024-07-10 08:30] LABS: Alanine Aminotransferase 27 U/L (0-40); Alkaline Phosphatase 88 U/L (39-117); Anion Gap 9 (12-20); Aspartate Amino Transferase 25 U/L (5-37); Bilirubin Total 0.6 mg/dL (0.0-1.0); Blood Urea Nitrogen 14 mg/dL (9-16); Calcium 9.4 mg/dL (8.4-10.2); Carbon Dioxide 30 mmol/L (22-29); Chloride 106 mmol/L (96-108); Cholesterol 103 mg/dL (<200); Estimated Glomerular Filt Rate > 60; Glucose Fasting 144 mg/dL (60-99); HDL Cholesterol 25 mg/dL (>40); LDL Cholesterol Calculated 38 mg/dL (<100); Potassium 3.6 mmol/L (3.3-5.1); Sodium 141 mmol/L (135-145); Total Protein 7.5 g/dL (6.5-8.0); Triglycerides 200 mg/dL (<150)
[2024-07-10 08:33] LABS: Creatinine Urine 215.34 mg/dL; Microalbum/Creatinine Ratio Ur 27.3 ug/mg cr (<30)
[2024-07-13 06:29] LABS: TS Negative Control Passed; TS Panel A 0; TS Panel B 0; TS Positive Control Passed; TSpotTB Negative (Negative)
== END 2024-07-10 07:16 | disposition home or self-care (01) ==
LOC: HO.LAB 07:15
PROVIDERS: PCP Internal Medicine; Visit Provider Internal Medicine
DX: E11.9 Type 2 diabetes mellitus without complications (principal); E78.5 Hyperlipidemia, unspecified; Z79.4 Long term (current) use of insulin; Z11.1 Encounter for screening for respiratory tuberculosis
CPT/HCPCS: 36415; 80053; 80061; 82043; 82570; 86481

== ENCOUNTER 2024-10-04 09:00 | Outpatient (REF) | payer OTHER, SELFPAY ==
[2024-10-04 10:12] LABS: Appearance Urine Cloudy; Color Urine Yellow; Glucose Urine UA Negative (Negative); Leukocyte Esterase Urine Negative (Negative); Nitrite Urine Negative (Negative); PH 6.5 (5.0-9.0); Specific Gravity - Urine 1.015 (1.005-1.025); Urine Blood Negative (Negative); Urine Ketones Negative (Negative); Urine Protein Trace mg/dL (Neg-Trace)
== END 2024-10-04 09:01 | disposition home or self-care (01) ==
LOC: HO.LAB 09:00
PROVIDERS: PCP Internal Medicine; Visit Provider Internal Medicine
DX: R39.9 Unspecified symptoms and signs involving the genitourinary system (principal)
CPT/HCPCS: 81003

== ENCOUNTER 2024-11-07 14:10 | Inpatient (IN) | payer OTHER, SELFPAY ==
--- NOTE | ~2024-11-07 | CT_ITS ---
CLINICAL HISTORY: nausea vomiting diarrhea CT abdomen and pelvis without contrast Comparison: None Findings: Mild bibasilar atelectasis and/or pneumonitis. No obstructing stone in either kidney or either ureter. Mild fat deposition in the liver. Calcification noted in the left lobe of the liver. Mild volume loss of the pancreas. Solid abdominal organs are otherwise unremarkable for noncontrast study. Gallbladder is unremarkable for noncontrast CT. Small mesenteric and periaortic lymph nodes are nonspecific and may be reactive. Small hiatal hernia. No small bowel obstruction. Fluid in the large intestine lumen can be seen with diarrhea type illnesses and colitis. The appendix is mildly dilated measuring up to 0.7 cm diameter. Prostate gland is unremarkable for CT. Wall thickening of the urinary bladder is nonspecific. No free intraperitoneal air. No drainable abscess by noncontrast CT. Degenerative changes include lower lumbar facet arthropathy. Subcutaneous edema is noted. IMPRESSION: 1. Mild dilatation of the appendix concerning for appendicitis. 2. Fluid in the large intestine as can be seen with diarrhea type illnesses and mild colitis. Differential considerations include colitis secondary to appendicitis. This document has been electronically signed by: Yariel Wood MD on 11/07/2024 19:17:44
[2024-11-07 14:20] VITALS: BP 92/57; PULSE 128; RESP 18; TEMP 36.4; O2SAT 95; BMI 40.0
--- NOTE | 2024-11-07 14:21 | ED_ITS ---
HPI - General Adult General Chief complaint: Nausea/Vomiting/Diarrhea Stated complaint: Vomiting Cramping Time Seen by Provider: 11/07/24 17:44 Related Data Home Medications ?Medication ?Instructions ?Recorded ?Confirmed dulaglutide 0.75 mg/0.5 mL 0.75 mg subcut QWEEK 11/07/24 subcutaneous pen injector (Trulicity) duloxetine 60 mg capsule,delayed 60 mg PO DAILY 11/07/24 release Previous Rx's ?Medication ?Instructions ?Recorded pen needle, diabetic 31 gauge x #100 ea 08/26/22 5/16 (1st Tier [employer] Pentips) blood pressure monitor #1 ea 11/16/22 CPAP Full FACE MASK medium 14 cm #1 ea 02/21/23 H2O humidified AIR metformin 500 mg tablet 1,000 mg (2 x 500 mg) PO BIDWMEAL 12/10/23 90 days #360 tabs blood sugar diagnostic (FreeStyle #100 ea 12/20/23 Lite Strips) blood-glucose meter (FreeStyle #1 ea 12/20/23 Lite Meter kit) naproxen 500 mg tablet (Naprosyn) 500 mg PO BID #20 tabs 05/24/24 losartan 25 mg tablet 25 mg PO DAILY 90 days #90 tabs 05/31/24 rosuvastatin 40 mg tablet 40 mg PO DAILY 90 days #90 tabs 05/31/24 amlodipine 5 mg tablet 5 mg PO DAILY 90 days #90 tabs 08/14/24 cholecalciferol (vitamin D3) 25 25 mcg PO DAILY 90 days #90 caps 08/14/24 mcg (1,000 unit) capsule omeprazole 20 mg capsule,delayed 20 mg PO DAILY #90 caps 08/14/24 release insulin glargine 100 unit/mL (3 5 unit (0.05 mL) subcut QPM 90 10/28/24 mL) subcutaneous pen (Lantus days #4.5 mL Solostar U-100 Insulin) lancets 28 gauge (FreeStyle #100 ea 11/02/24 Lancets) ondansetron 8 mg disintegrating 8 mg PO Q12H PRN nausea and 11/07/24 tablet vomiting 5 days #10 tabs Allergies Allergy/AdvReac Type Severity Reaction Status Date / Time seafood Allergy Intermediate Rash Verified 11/07/24 14:26 [facility] Past Medical History Medical History (Updated 11/07/24 @ 20:27 by Rigo Pérez MD) Diarrhea Blood in stool Type 2 diabetes mellitus with hyperglycemia Urge urinary incontinence Morbid obesity Bronchitis Essential hypertension Headache KUNAL (obstructive sleep apnea) Obesity (BMI 35.0-39.9 without comorbidity) Mixed hyperlipidemia Surgical History No pertinent past surgical history Family History Family History Father Essential hypertension Mother No problems noted. Paternal Uncle Myocardial infarct Social History Social History Housing: Apartment Alcohol intake: current Alcohol intake frequency: a few times a week Alcohol type: beer and wine Patient Tobacco Use Status: Never used Tobacco e-Cigarette/Vaping Use: Never Used Second Hand Smoke Exposure: No Advance Directives: Yes Advance Directives on File: Yes Advance Directives Date on File: 12/06/23 Do you have a plan to hurt others: No Plan service: No Current occupational status: employed Current occupational exposures/hazards: No Cognitive needs: No Hearing needs: No Vision needs: No Physical Exam ED Vital Signs: Vital Signs - 24 hr 11/07/24 14:20 11/07/24 18:18 11/07/24 18:19 Temperature 97.6 F 98.4 F 98.6 F Pulse Rate 128 H 91 110 H Respiratory Rate 18 20 20 Blood Pressure 92/57 L 152/91 H 102/58 L Pulse Oximetry 95 98 96 Oxygen Delivery Method Room Air Room Air Room Air BMI result Body Mass Index 40.0 Course Course Course Narrative: This is a rapid medical exam performed by Ghassan Guardado NP: Additional HPI, ROS, PE not included below will be deferred to primary provider. Patient is a 39-year-old male with history of DM, asthma, STAR, MDD, GERD, obesity presenting with complaint nausea vomiting diarrhea since this morning. Associated dizziness/lightheadedness, fatigue. Tachycardic in triage, BP low. Plan: labs, EKG, viral serology Medications Administered Discontinued Medications Generic Name Dose Route Start Last Admin Trade Name Freq PRN Reason Stop Dose Admin Acetaminophen 650 mg 11/07/24 18:18 11/07/24 18:26 Acetaminophen 325 Mg Tablet PO 11/07/24 18:19 650 mg ONCE ONE Administration Ceftriaxone Sodium 1 gm 11/07/24 18:31 11/07/24 19:29 Ceftriaxone Sodium 1 Gm Vial IVPUSH 11/07/24 18:32 1 gm ONCE ONE Administration Hydromorphone HCl 0.5 mg 11/07/24 19:36 11/07/24 19:50 Hydromorphone Hcl 0.5 Mg/0.5 Ml Syringe IVPUSH 11/07/24 19:37 0.5 mg ONCE ONE Administration Protocol Sodium Chloride 1,000 mls @ 999 mls/hr 11/07/24 18:00 11/07/24 18:25 Ns IV 11/07/24 19:00 999 mls/hr .Q1H1M IRVING Administration Sodium Chloride 1,000 mls @ 999 mls/hr 11/07/24 18:00 11/07/24 18:26 Ns IV 11/07/24 19:00 999 mls/hr .Q1H1M IRVING Administration Metronidazole 500 mg in 100 mls @ 100 mls/hr 11/07/24 19:22 11/07/24 19:29 Flagyl IV 11/07/24 20:21 100 mls/hr ONCE ONE Administration Ondansetron HCl 4 mg 11/07/24 18:17 11/07/24 18:26 Ondansetron Hcl 4 Mg/2 Ml Vial IVPUSH 11/07/24 18:18 4 mg ONCE ONE Administration Medical Decision Making Lab Data 11/07/24 14:48 11/07/24 14:48 Labs: Lab Results 11/07/24 11/07/24 Range/Units 14:48 19:03 WBC 16.5 H (4.8-10.8) X10*3/uL RBC 6.01 H D (4.60-5.80) X10*6/uL Hgb 18.4 H D (14.0-18.0) g/dl Hct 53.7 H D (42.0-52.0) % MCV 89.4 (80.0-98.0) fL MCH 30.6 (27.0-33.0) pg MCHC 34.3 (31.0-36.0) g/dl RDW 13.8 (11.0-16.0) % Plt Count 205 D (160-400) X10*3/uL MPV 10.1 (9.4-12.4) fL Immature Gran % (Auto) 0.5 H (0.0-0.4) % Neut % (Auto) 86.1 H (45-73) % Lymph % (Auto) 5.8 L (20-40) % [place] % (Auto) 7.2 (2-11) % Eos % (Auto) 0.2 (0-4) % Baso % (Auto) 0.2 (0-2) % Lymph # (Auto) 1.0 L (1.2-4.9) X10*3/uL [place] # (Auto) 1.2 (0.1-1.2) X10*3/uL Eos # (Auto) 0.0 (0.0-0.4) X10*3/uL Baso # (Auto) 0.0 (0.0-0.2) X10*3/uL Abs Immat Gran (auto) 0.08 H (0.00-0.03) X10*3/uL Absolute Neuts (auto) 14.2 H (2.0-8.3) x10*3/uL Absolute Nucleated RBC 0.000 (0.0-0.012) X10*3/uL Nucleated RBC % (auto) 0.0 (0.0-0.2) /100WBC PT 12.3 (10.9-12.4) SEC INR 1.1 (0.9-1.1) Sodium 139 (135-145) mmol/L Potassium 4.0 (3.3-5.1) mmol/L Chloride 105 (96-108) mmol/L Carbon Dioxide 26 (22-29) mmol/L Anion Gap 12 (12-20) BUN 19 H (9-16) mg/dL Creatinine 2.34 H (0.5-1.4) mg/dL Estim Creat Clear Calc 45.4 Estimated GFR 31 Random Glucose 173 H (60-115) mg/dL Lactic Acid 1.8 2.0 (0.5-2.0) mmol/L Calcium 11.5 H D (8.4-10.2) mg/dL Magnesium 2.0 (1.6-2.6) mg/dL Total Bilirubin 1.4 H (0.0-1.0) mg/dL AST 33 (5-37) U/L ALT 50 H (0-40) U/L Alkaline Phosphatase 111 (39-117) U/L Total Protein 9.9 H (6.5-8.0) g/dL Albumin 5.2 H (3.5-5.0) g/dL Influenza Type A (PCR) NEGATIVE (Negative) Influenza Type B (PCR) NEGATIVE (Negative) RSV RNA Qual (PCR) NEGATIVE (Negative) SARS-CoV-2 RNA (RT-PCR) NEGATIVE (Negative) Discharge Plan Discharge Clinical Impression: Acute kidney insufficiency, Acute dehydration Patient Disposition: Admitted As Inpatient Print Language: Guatemalan
--- NOTE | 2024-11-07 14:22 | ECG_ITS ---
Test Reason : DIZZY Blood Pressure : */* mmHG Vent. Rate : 117 BPM Atrial Rate : 117 BPM P-R Int : 160 ms QRS Dur : 80 ms QT Int : 314 ms P-R-T Axes : 48 34 24 degrees QTcB Int : 438 ms Sinus tachycardia Cannot rule out Anterior infarct , age undetermined Abnormal ECG When compared with ECG of 24-May-2024 02:11, Vent. rate has increased by 52 bpm Referred By: Ladi Guardado Electronically Signed By: CLEMENCIA DOYLE MD
[2024-11-07 14:57] LABS: MANUAL DIFF FLAG NO
[2024-11-07 15:00] LABS: Basophils Percent Auto 0.2 % (0-2); Eosinophils Percent Auto 0.2 % (0-4); Hematocrit 53.7 % (42.0-52.0); Hemoglobin 18.4 g/dl (14.0-18.0); Imm Gran Abs Auto 0.08 X10*3/uL (0.00-0.03); Imm Gran Pct Auto 0.5 % (0.0-0.4); Lymphocytes Percent Auto 5.8 % (20-40); Mean Corpuscular HGB Conc 34.3 g/dl (31.0-36.0); Mean Corpuscular Hemoglobin 30.6 pg (27.0-33.0); Mean Corpuscular Volume 89.4 fL (80.0-98.0); Mean Platelet Volume 10.1 fL (9.4-12.4); Monocytes Absolute Auto 1.2 X10*3/uL (0.1-1.2); Monocytes Percent Auto 7.2 % (2-11); Neutrophils Absolute Auto 14.2 x10*3/uL (2.0-8.3); Neutrophils Percent Auto 86.1 % (45-73); Platelet Count 205 X10*3/uL (160-400); Red Blood Count 6.01 X10*6/uL (4.60-5.80); Red Cell Distribution Width 13.8 % (11.0-16.0); White Blood Count 16.5 X10*3/uL (4.8-10.8)
[2024-11-07 15:06] LABS: INTERNATIONAL NORM RATIO 1.1 (0.9-1.1); Prothrombin Time 12.3 SEC (10.9-12.4)
[2024-11-07 15:11] LABS: Lactic Acid 1.8 mmol/L (0.5-2.0)
[2024-11-07 15:13] LABS: Alanine Aminotransferase 50 U/L (0-40); Albumin Level 5.2 g/dL (3.5-5.0); Alkaline Phosphatase 111 U/L (39-117); Anion Gap 12 (12-20); Aspartate Amino Transferase 33 U/L (5-37); Bilirubin Total 1.4 mg/dL (0.0-1.0); Blood Urea Nitrogen 19 mg/dL (9-16); Calcium 11.5 mg/dL (8.4-10.2); Carbon Dioxide 26 mmol/L (22-29); Chloride 105 mmol/L (96-108); Creatinine Clr Calc Pharmacy 45.4; Estimated Glomerular Filt Rate 31; Glucose Random 173 mg/dL (60-115); Sodium 139 mmol/L (135-145); Total Protein 9.9 g/dL (6.5-8.0)
[2024-11-07 15:35] LABS: Influenza A PCR NEGATIVE (Negative); Influenza B PCR NEGATIVE (Negative); Resp Syncy Virus RNA Qual PCR NEGATIVE (Negative); SARS COV2 PCR INHOUSE NEGATIVE (Negative)
[2024-11-07 18:18] VITALS: BP 152/91; PULSE 91; RESP 20; TEMP 36.9; O2SAT 98
[2024-11-07 18:19] VITALS: BP 102/58; PULSE 110; RESP 20; TEMP 37; O2SAT 96
--- NOTE | 2024-11-07 18:19 | ED.NAVMDI ---
HPI - Nausea/Vomiting/Diarrhea General Chief complaint: Nausea/Vomiting/Diarrhea Stated complaint: Vomiting Cramping Time Seen by Provider: 11/07/24 17:44 History of Present Illness HPI Narrative: patient is a 39-year-old male with a history of diabetes. His recent presents today with having nausea vomiting diarrhea generalized malaise. Diarrhea is green in color. There has been no change in his diet. He has been compliant with medication. Vomiting mostly considered sent with mucus. Patient from home. No travel history. No recent antibiotics. Positive abdominal cramping. Positive mild coughing. Patient has been vaccinated for flu. Related Data Previous Rx's ?Medication ?Instructions ?Recorded pen needle, diabetic 31 gauge x #100 ea 08/26/2203/01 (1st Tier [employer]ifine Pentips) blood pressure monitor #1 ea 11/16/22 CPAP Full FACE MASK medium 14 cm #1 ea 02/21/23 H2O humidified AIR metformin 500 mg tablet 1,000 mg (2 x 500 mg) PO BIDWMEAL 12/10/23 90 days #360 tabs blood sugar diagnostic (FreeStyle #100 ea 12/20/23 Lite Strips) blood-glucose meter (FreeStyle #1 ea 12/20/23 Lite Meter kit) naproxen 500 mg tablet (Naprosyn) 500 mg PO BID #20 tabs 05/24/24 losartan 25 mg tablet 25 mg PO DAILY 90 days #90 tabs 05/31/24 rosuvastatin 40 mg tablet 40 mg PO DAILY 90 days #90 tabs 05/31/24 amlodipine 5 mg tablet 5 mg PO DAILY 90 days #90 tabs 08/14/24 cholecalciferol (vitamin D3) 25 25 mcg PO DAILY 90 days #90 caps 08/14/24 mcg (1,000 unit) capsule omeprazole 20 mg capsule,delayed 20 mg PO DAILY #90 caps 08/14/24 release insulin glargine 100 unit/mL (3 5 unit (0.05 mL) subcut QPM 90 10/28/24 mL) subcutaneous pen (Lantus days #4.5 mL Solostar U-100 Insulin) lancets 28 gauge (FreeStyle #100 ea 11/02/24 Lancets) dulaglutide 0.75 mg/0.5 mL 0.75 mg (0.5 mL) subcut QWEEK 90 11/03/24 subcutaneous pen injector days #6.5 mL (Trulicity) Allergies Allergy/AdvReac Type Severity Reaction Status Date / Time seafood Allergy Intermediate Rash Verified 11/07/24 14:26 Review of Systems Review of Systems: Positive coughing congestion upper respiratory symptoms positive nausea vomiting diarrhea Yes all other systems are reviewed and are negative [facility] Past Medical History Attestation statement: The following information was validated with the patient. Medical History Blood in stool Type 2 diabetes mellitus with hyperglycemia Urge urinary incontinence Morbid obesity Bronchitis Essential hypertension Headache KUNAL (obstructive sleep apnea) Obesity (BMI 35.0-39.9 without comorbidity) Mixed hyperlipidemia Surgical History No pertinent past surgical history Family History Family History Father Essential hypertension Mother No problems noted. Paternal Uncle Myocardial infarct Social History Social History Housing: Apartment Alcohol intake: current Alcohol intake frequency: a few times a week Alcohol type: beer and wine Patient Tobacco Use Status: Never used Tobacco e-Cigarette/Vaping Use: Never Used Second Hand Smoke Exposure: No Advance Directives: Yes Advance Directives on File: Yes Advance Directives Date on File: 12/06/23 Do you have a plan to hurt others: No Plan service: No Current occupational status: employed Current occupational exposures/hazards: No Cognitive needs: No Hearing needs: No Vision needs: No Physical Exam Vital Signs: Vital Signs: Last Vital Signs Temp 98.6 F 11/07/24 18:19 Pulse 110 H 11/07/24 18:19 Resp 20 11/07/24 18:19 BP 102/58 L 11/07/24 18:19 Pulse Ox 96 11/07/24 18:19 O2 Del Method Room Air 11/07/24 18:19 BMI result Body Mass Index 40.0 Appearance: Alert. Oriented X3. No acute distress. Eyes: Pupils equal, round and reactive to light. ENT: Pharynx normal. Neck: Normal inspection. Neck supple. No lymph nodes noted. No crepitus CVS: Normal heart rate and rhythm. Pulses normal. Normal S1 and S2 Respiratory: No respiratory distress. Breath sounds normal. No Wheezing. No rales Abdomen: Soft and nontender. No rigidity. No distention. good BS x4 Skin: Skin warm and dry. Normal skin color. Normal skin turgor. Extremities: No lower extremity edema. Neurovascular intact to all extremities. No Lacerations. No Rash Neuro: Oriented X 3. No motor deficit. No sensory deficit. Moving all extermities. No slurred speech Medications Administered Generic Name Dose Route Start Last Admin Trade Name Freq PRN Reason Stop Dose Admin Metronidazole 500 mg in 100 mls @ 100 mls/hr 11/07/24 19:22 11/07/24 19:29 Flagyl IV 11/07/24 20:21 100 mls/hr ONCE ONE Administration Discontinued Medications Generic Name Dose Route Start Last Admin Trade Name Freq PRN Reason Stop Dose Admin Acetaminophen 650 mg 11/07/24 18:18 11/07/24 18:26 Acetaminophen 325 Mg Tablet PO 11/07/24 18:19 650 mg ONCE ONE Administration Ceftriaxone Sodium 1 gm 11/07/24 18:31 11/07/24 19:29 Ceftriaxone Sodium 1 Gm Vial IVPUSH 11/07/24 18:32 1 gm ONCE ONE Administration Hydromorphone HCl 0.5 mg 11/07/24 19:36 11/07/24 19:50 Hydromorphone Hcl 0.5 Mg/0.5 Ml Syringe IVPUSH 11/07/24 19:37 0.5 mg ONCE ONE Administration Protocol Sodium Chloride 1,000 mls @ 999 mls/hr 11/07/24 18:00 11/07/24 18:25 Ns IV 11/07/24 19:00 999 mls/hr .Q1H1M IRVING Administration Sodium Chloride 1,000 mls @ 999 mls/hr 11/07/24 18:00 11/07/24 18:26 Ns IV 11/07/24 19:00 999 mls/hr .Q1H1M IRVING Administration Ondansetron HCl 4 mg 11/07/24 18:17 11/07/24 18:26 Ondansetron Hcl 4 Mg/2 Ml Vial IVPUSH 11/07/24 18:18 4 mg ONCE ONE Administration Medical Decision Making Medical Decision Making MDM Narrative: Positive nausea vomiting diarrhea positive generalized malaise. My interpretation patient's labs showed an elevated creatinine. Patient's COVID flu RSV were actually negative. IV fluid was ordered. Patient had tachycardia on monitor appears to be a sinus tach. Heart rate was 120 blood pressure was 95/50. Will monitor carefully. No fever no chills. No coughing or congestion or upper respiratory symptoms. Will get a CT scan of the abdomen as patient had abdominal pain nausea vomiting diarrhea. Patient's hemoglobin was 18. Likely from hemoconcentration. White count was elevated consistent with gastroenteritis. Will most likely require admission given patient had elevated creatinine tachycardic dehydrated patient's blood pressure improved after IV fluids. Repeat blood pressure is proximally 110/70. Patient's heart rate still 110. Consistent with dehydration. Labs showed an elevated creatinine consistent with dehydration prerenal. Patient given fluids. Monitored in the ED. CT scan of the abdomen was positive for question appendicitis versus gastroenteritis. This finding was discussed with Dr. Pérez the surgeon on-call. He reviewed the CT. [place] patient condition more likely secondary to gastroenteritis not due to appendicitis. The hospitalist team was consulted. Patient to be admitted. patient has no signs of sepsis. The tachycardia and low blood pressure more likely secondary to dehydration. Differential Diagnosis Differential Diagnoses: The differential diagnosis associated with the presentation includes Gastroenteritis, appendicitis, perforation, dehydration Admission/Observation Consideration of admission/observation: Escalation of care including admission/observation considered Consult Healthcare Provider Management of the patient was discussed with: Hospitalist and Electroencephalographic Technician ( surgery) Lab Data MDM Lab Attestation statement: I reviewed the patient's lab results. 11/07/24 14:48 11/07/24 14:48 Labs: Lab Results 11/07/24 11/07/24 Range/Units 14:48 19:03 WBC 16.5 H (4.8-10.8) X10*3/uL RBC 6.01 H D (4.60-5.80) X10*6/uL Hgb 18.4 H D (14.0-18.0) g/dl Hct 53.7 H D (42.0-52.0) % MCV 89.4 (80.0-98.0) fL MCH 30.6 (27.0-33.0) pg MCHC 34.3 (31.0-36.0) g/dl RDW 13.8 (11.0-16.0) % Plt Count 205 D (160-400) X10*3/uL MPV 10.1 (9.4-12.4) fL Immature Gran % (Auto) 0.5 H (0.0-0.4) % Neut % (Auto) 86.1 H (45-73) % Lymph % (Auto) 5.8 L (20-40) % [place] % (Auto) 7.2 (2-11) % Eos % (Auto) 0.2 (0-4) % Baso % (Auto) 0.2 (0-2) % Lymph # (Auto) 1.0 L (1.2-4.9) X10*3/uL [place] # (Auto) 1.2 (0.1-1.2) X10*3/uL Eos # (Auto) 0.0 (0.0-0.4) X10*3/uL Baso # (Auto) 0.0 (0.0-0.2) X10*3/uL Abs Immat Gran (auto) 0.08 H (0.00-0.03) X10*3/uL Absolute Neuts (auto) 14.2 H (2.0-8.3) x10*3/uL Absolute Nucleated RBC 0.000 (0.0-0.012) X10*3/uL Nucleated RBC % (auto) 0.0 (0.0-0.2) /100WBC PT 12.3 (10.9-12.4) SEC INR 1.1 (0.9-1.1) Sodium 139 (135-145) mmol/L Potassium 4.0 (3.3-5.1) mmol/L Chloride 105 (96-108) mmol/L Carbon Dioxide 26 (22-29) mmol/L Anion Gap 12 (12-20) BUN 19 H (9-16) mg/dL Creatinine 2.34 H (0.5-1.4) mg/dL Estim Creat Clear Calc 45.4 Estimated GFR 31 Random Glucose 173 H (60-115) mg/dL Lactic Acid 1.8 2.0 (0.5-2.0) mmol/L Calcium 11.5 H D (8.4-10.2) mg/dL Magnesium 2.0 (1.6-2.6) mg/dL Total Bilirubin 1.4 H (0.0-1.0) mg/dL AST 33 (5-37) U/L ALT 50 H (0-40) U/L Alkaline Phosphatase 111 (39-117) U/L Total Protein 9.9 H (6.5-8.0) g/dL Albumin 5.2 H (3.5-5.0) g/dL Influenza Type A (PCR) NEGATIVE (Negative) Influenza Type B (PCR) NEGATIVE (Negative) RSV RNA Qual (PCR) NEGATIVE (Negative) SARS-CoV-2 RNA (RT-PCR) NEGATIVE (Negative) Independent Interpretation I performed an independent interpretation of an: CT Scan Radiology Impression Discussion of test interpretation with radiology: I have reviewed the radiologist's reading. External Record Review External record reviewed: Inpatient record Prescription Management I considered prescription management with: Antibiotic Chronic Conditions Patient?s care impacted by: Diabetes and Hypertension Critical Care Time Critical Care Time Critical Care Time: Yes Total Critical Care Time: 40 Attestation: I have personally provided 40 minutes of critical care time exclusive of time spent on separately billable procedures. Time includes review of lab data, radiology results, discussion with consultants, and monitoring for potential decompensation. Interventions were performed as documented above. IV fluid was started for hypotension. Good response. Labs showed dehydration. CT showed gastroenteritis versus appendicitis Discharge Plan Discharge Clinical Impression: Acute kidney insufficiency, Acute dehydration Patient Disposition: Admitted As Inpatient Print Language: Georgian
[2024-11-07] MEDS: 0.9 % Sodium Chloride 1,000 ML 999 ML IV ×3 (18:25→21:55)
[2024-11-07] MEDS: Acetaminophen 325 MG TABLET 650 MG PO (18:26)
[2024-11-07] MEDS: ondansetron HCL 4 MG/2 ML VIAL IVPUSH (18:26)
[2024-11-07] MEDS: metroNIDAZOLE/NS 500 MG/100 ML PIGGYBACK 100 MG IV (19:29)
[2024-11-07] MEDS: cefTRIAXone sodium 1 GM VIAL IVPUSH (19:29)
[2024-11-07] MEDS: HYDROmorphone HCl 0.5 MG/0.5 ML SYRINGE IVPUSH (19:50)
--- NOTE | 2024-11-07 20:21 | P.CONGS_ITS ---
History of Present Illness Consult details Consult date: 11/07/24 Narrative: 39M here in the ED for diarrhea and vomitting. He states that thishas been going for over 7 hours. He has had multiple episodes of watery, green colored bowel movements along with frequent vomitting. He says he eventually started to have abdominal pain, both on the left and right side. He started to have body malaise and weakness so he decided to come to the ED this afternoon. He says he knows of no other close contacts with the same symptoms. He has DM, HTN, KUNAL and morbid obesity. Review of Systems 2 Constitutional: Constitutional: Denies chills, Denies fever(s), Reports lethargy, Reports malaise and Reports weakness Cardiovascular: Cardiovascular: Denies chest pain, Denies dyspnea and Denies dyspnea on exertion Respiratory: Respiratory: Denies cough, Denies dyspnea and Denies dyspnea on exertion Gastrointestinal: Gastrointestinal: Denies hematochezia, Reports diarrhea and Reports vomiting Genitourinary: Genitourinary: Denies hematuria and Denies difficulty urinating Musculoskeletal: Musculoskeletal: Denies back pain and Denies limited range of motion Neurologic: Denies focal weakness, Denies convulsions and Reports weakness Psychiatric: Psychiatric: Denies depression and Denies mood swings PMFSH Past Medical History Medical History Diarrhea Blood in stool Type 2 diabetes mellitus with hyperglycemia Urge urinary incontinence Morbid obesity Bronchitis Essential hypertension Headache KUNAL (obstructive sleep apnea) Obesity (BMI 35.0-39.9 without comorbidity) Mixed hyperlipidemia Family History Family History Father Essential hypertension Mother No problems noted. Paternal Uncle Myocardial infarct Surgical History Surgical History No pertinent past surgical history Social History Social History Household Members: Family Housing: Apartment Do you presently have visiting nurse or other home services: No Alcohol intake: current Alcohol intake frequency: a few times a week Alcohol type: beer and wine Patient Tobacco Use Status: Never used Tobacco e-Cigarette/Vaping Use: Never Used Second Hand Smoke Exposure: No Advance Directives Date on File: 12/06/23 service: No Current occupational status: employed Current occupational exposures/hazards: No Cognitive needs: No Hearing needs: No Vision needs: No Meds Allergies Allergy/AdvReac Type Severity Reaction Status Date / Time seafood Allergy Intermediate Rash Verified 11/07/24 14:26 Home Medications ?Medication ?Instructions ?Recorded ?Confirmed ?Last Taken ?Type clonazepam 0.5 mg tablet 0.5 mg PO BID PRN Anxiety 11/07/24 11/07/24 Unknown History dulaglutide 0.75 mg/0.5 mL 0.75 mg subcut MO 11/07/24 11/07/24 11/05/24 [facility] Physical Exam 2 Vital Signs: Vital Signs: Last Vital Signs Temp 98.6 F 11/07/24 18:19 Pulse 110 H 11/07/24 18:19 Resp 20 11/07/24 18:19 BP 102/58 L 11/07/24 18:19 Pulse Ox 96 11/07/24 18:19 O2 Del Method Room Air 11/07/24 18:19 BMI result Body Mass Index 40.0 Const: Other: morbod obesity General: comfortable and no acute distress Orientation/consciousness: p atient oriented x3 Neck: Neck: Yes no lymphadenopathy Resp: Auscultation: clear to auscultation bilaterally Cardio: Rhythm: regular rhythm GI: Other: mild diffuse tenderness Palpation (GI): Soft to palpation, Tenderness to palpation present (GI), no guarding and not rigid Neuro: General: patient oriented x3 Results Labs 11/09/24 06:35 11/09/24 06:35 Labs: Abnormal lab results 11/07/24 Range/Units 14:48 WBC 16.5 H (4.8-10.8) X10*3/uL RBC 6.01 H D (4.60-5.80) X10*6/uL Hgb 18.4 H D (14.0-18.0) g/dl Hct 53.7 H D (42.0-52.0) % Immature Gran % (Auto) 0.5 H (0.0-0.4) % Neut % (Auto) 86.1 H (45-73) % Lymph % (Auto) 5.8 L (20-40) % Lymph # (Auto) 1.0 L (1.2-4.9) X10*3/uL Abs Immat Gran (auto) 0.08 H (0.00-0.03) X10*3/uL Absolute Neuts (auto) 14.2 H (2.0-8.3) x10*3/uL BUN 19 H (9-16) mg/dL Creatinine 2.34 H (0.5-1.4) mg/dL Random Glucose 173 H (60-115) mg/dL Calcium 11.5 H D (8.4-10.2) mg/dL Total Bilirubin 1.4 H (0.0-1.0) mg/dL ALT 50 H (0-40) U/L Total Protein 9.9 H (6.5-8.0) g/dL Albumin 5.2 H (3.5-5.0) g/dL Short CBC 11/07/24 Range/Units 14:48 WBC 16.5 H (4.8-10.8) X10*3/uL Hgb 18.4 H D (14.0-18.0) g/dl Hct 53.7 H D (42.0-52.0) % Plt Count 205 D (160-400) X10*3/uL BMP 11/07/24 14:48 Sodium 139 Potassium 4.0 Chloride 105 Carbon Dioxide 26 BUN 19 H Creatinine 2.34 H Calcium 11.5 H D Liver Function 11/07/24 Range/Units 14:48 Total Bilirubin 1.4 H (0.0-1.0) mg/dL AST 33 (5-37) U/L ALT 50 H (0-40) U/L Alkaline Phosphatase 111 (39-117) U/L Albumin 5.2 H (3.5-5.0) g/dL All other labs normal. Assessment and Plan (1) Diarrhea: Status: Acute He is here in the ED for severe diarrhea all day along with vomitting, followed by abdominal pain. I have reviewed his CT scan and despite the reading of mildly distended appendix, there are no inflammatory changes around the appendix. There are no appendicoliths. There is large amounts of liquids stools in the colon. Overall picture suggests more of a gastroenteritis - colitis-type pathology. His predominant symptoms are diarrhea and vomitting. Index of suspicion for acute appendicitis is low. His exam his very benign. He does not appear septic. His Hg is 18 and his creatinine is 2.3 suggestive of significant volume depletion. He should be aggressively hydrated. He can have clear liquids for now. I will follow along for serial abdominal exams while he is in the hospital. I discussed the above with the Hospitalist service. Procedures Date of Service Date of Service: 11/13/24
--- NOTE | 2024-11-07 20:33 | P.HPHOSP_ITS ---
History of Present Illness Date of Service: 11/07/24 Attending physician on admission: Alexis Sams Chief Complaint: Abdominal pain Yang Trevino is a 39 years old man with past medical history significant for type 2 diabetes mellitus on metformin + Trulicity, essential hypertension, KUNAL on CPAP and hypercholesterolemia presents to the emergency department generalized abdominal pain that started this morning around 10 am followed by multiple events of bilious vomiting (X10) and nonbloody watery diarrhea. He also reported dizziness, chills and palpitations. He did report some pain with urination. Denied headache, sore throat, chest pain, shortness breath, fever or headache. Last meal before symptom was hot dogs X3. Denied recent use antibiotics we will contact with ill people. He has no history of abdominal surgeries. In the ED, he was initially found to have hypotension. He continues with tachycardia. There is no fever, tachypnea and oxygen saturation is normal on room air. Blood workup was remarkable for leukocytosis of 16.5 hemoglobin is 18.4 and platelets are normal. There are no significant electrolyte imbalances except for hypercalcemia, 11.5. Creatinine is 2.34 (prior was normal) and BUN of 19. Glucose 173. And lactic acid is normal x2. LFTs remarkable for slight elevation in ALT and total bilirubin, 1.4. Viral testing for influenza, RSV and COVID is negative. Abdominal pelvis CT scan showed mild dilatation of the appendix concerning for appendicitis and mild colitis. ECG is remarkable for sinus tachycardia, 117 bpm. ED tx: NS drip L bolus, ketorolac 15 mg IV, Zofran 4 mg IV, Tylenol 650 mg p.o., ceftriaxone 1 g IV and Flagyl 500 mg IV Review of Systems 2 Review of Systems: All 12 systems were reviewed and normal except as noted in HPI. [facility] Medical History (Updated 11/07/24 @ 20:54 by Alexis Sams MD) Diarrhea Blood in stool Type 2 diabetes mellitus with hyperglycemia Urge urinary incontinence Morbid obesity Bronchitis Essential hypertension Headache KUNAL (obstructive sleep apnea) Obesity (BMI 35.0-39.9 without comorbidity) Mixed hyperlipidemia Family History Father Essential hypertension Mother No problems noted. Paternal Uncle Myocardial infarct Surgical History No pertinent past surgical history Social History Housing: Apartment Alcohol intake: current Alcohol intake frequency: a few times a week Alcohol type: beer and wine Patient Tobacco Use Status: Never used Tobacco e-Cigarette/Vaping Use: Never Used Second Hand Smoke Exposure: No Advance Directives: Yes Advance Directives on File: Yes Advance Directives Date on File: 12/06/23 Do you have a plan to hurt others: No Plan service: No Current occupational status: employed Current occupational exposures/hazards: No Cognitive needs: No Hearing needs: No Vision needs: No Meds Allergies Allergy/AdvReac Type Severity Reaction Status Date / Time seafood Allergy Intermediate Rash Verified 11/07/24 14:26 Active Medications: Current Medications Acetaminophen (Acetaminophen 325 Mg Tablet) 650 mg PO Q6H PRN PRN Reason: Pain, Mild 1-3,fever,headache Heparin Sodium (Porcine) (Heparin Sodium,Porcine 5,000 Unit/Ml Vial) 5,000 unit SUBCUT Q12H [place] Hydromorphone HCl (Hydromorphone Hcl 0.5 Mg/0.5 Ml Syringe) 0.5 mg IVPUSH Q3H PRN; Protocol PRN Reason: abdominal pain Lactated Ringer's (Lr) 1,000 mls @ 150 mls/hr IVCONT .Q6H40M [place] Ondansetron HCl (Ondansetron Hcl 4 Mg/2 Ml Vial) 4 mg IVPUSH Q8H PRN PRN Reason: Nausea and Vomiting Sodium Chloride (0.9 % Sodium Chloride Flush 3 Ml Syringe) 3 ml IVFLUSH QSHIFT [place] Home Medications ?Medication ?Instructions ?Recorded ?Confirmed ?Last Taken ?Type dulaglutide 0.75 mg/0.5 mL 0.75 mg subcut QWEEK 11/07/24 Unknown History subcutaneous pen injector (Trulicity) duloxetine 60 mg capsule,delayed 60 mg PO DAILY 11/07/24 Unknown History release Physical Exam 2 Vital Signs and Narrative: Vital Signs: Last Vital Signs Temp 98.6 F 11/07/24 18:19 Pulse 110 H 11/07/24 18:19 Resp 20 11/07/24 18:19 BP 102/58 L 11/07/24 18:19 Pulse Ox 96 11/07/24 18:19 O2 Del Method Room Air 11/07/24 18:19 BMI result Body Mass Index 40.0 Constitutional - Awake and Alert, No apparent distress. Pleasant. Cooperative. Obese. HEENT - PERRL, EOMI. Dry oral mucosa. Heart - Tachycardic, regular rhythm. Lungs - Normal lung expansion, Normal respiratory effort, No respiratory distress, CTA bilaterally Abdomen - Nondistended. Increased bowel sounds. Lower hemiabdomen tenderness without rebound or guarding. Extremities - no calf tenderness bilaterally, no swelling Musculoskeletal - Normal inspection, normal ROM Skin - Warm/Dry. No pallor. No jaundice. Neurological - Alert & oriented x3. No focal weakness grossly noted. Normal speech. Psychological - Appropriate affect Results Labs 11/07/24 14:48 11/07/24 14:48 Labs: Laboratory Results - last 24 hr 11/07/24 11/07/24 14:48 19:03 MCV 89.4 MCH 30.6 MCHC 34.3 RDW 13.8 Plt Count 205 D MPV 10.1 Immature Gran % (Auto) 0.5 H Neut % (Auto) 86.1 H Lymph % (Auto) 5.8 L [place] % (Auto) 7.2 Eos % (Auto) 0.2 Baso % (Auto) 0.2 Lymph # (Auto) 1.0 L [place] # (Auto) 1.2 Eos # (Auto) 0.0 Baso # (Auto) 0.0 Abs Immat Gran (auto) 0.08 H Absolute Neuts (auto) 14.2 H Absolute Nucleated RBC 0.000 Nucleated RBC % (auto) 0.0 PT 12.3 INR 1.1 Anion Gap 12 Estim Creat Clear Calc 45.4 Estimated GFR 31 Random Glucose 173 H Lactic Acid 1.8 2.0 Calcium 11.5 H D Magnesium 2.0 Total Bilirubin 1.4 H AST 33 ALT 50 H Alkaline Phosphatase 111 Total Protein 9.9 H Albumin 5.2 H Influenza Type A (PCR) NEGATIVE Influenza Type B (PCR) NEGATIVE RSV RNA Qual (PCR) NEGATIVE SARS-CoV-2 RNA (RT-PCR) NEGATIVE Assessment and Plan (1) TUNDE (acute kidney injury): Status: Acute (2) Diarrhea: Qualifiers: Diarrhea type: unspecified type Qualified Code(s): R19.7 - Diarrhea, unspecified Status: Acute (3) Acute colitis: Status: Acute Plan Yang Trevino is a 39 y/o man admitted with: * Acute kidney injury secondary to vomiting and diarrhea. Admit to hospitalist service. Avoid nephrotoxic agents. Hold losartan. Continue to monitor renal function. * Acute colitis. ?Appendicitis. Continue empiric IV antibiotic therapy with ceftriaxone and Flagyl. Check C diff and GI panel. Progress diet as tolerated. Patient evaluated by surgeon -no surgical interventions considered at this moment. * Leukocytosis and tachycardia likely secondary to dehydration due to vomiting and diarrhea. Normal lactic acid x2. Doubt sepsis. Continue IV fluids. Blood culture obtained in the ED -will follow results. * Type 2 diabetes mellitus. Hold metformin and Trulicity. Insulin sliding scale for now. * Essential hypertension. Hold amlodipine and losartan for now due to soft blood pressure. * Hypercholesterolemia. Continue statin. * KUNAL. Nocturnal CPAP. DVT prophylaxis: Heparin Code status: Full Patient will need hospitalization for at least 2 midnights for TUNDE treatment with IV fluids and continuous monitoring of renal function. He will also need IV antibiotic therapy for colitis. Quality Stroke Does the patient have a stroke diagnosis?: No VTE Prior VTE?: No VTE Risk Level:: Medical - moderate - high VTE Device Contraindication: Treatment Not Indicated VTE Drug Contraindication: N/A - Med Ordered
[2024-11-07 20:41] LABS: Glucose, Whole Blood 142 mg/dL (60-115)
[2024-11-07] MEDS: Lactated Ringers 1,000 ML 150 ML IVCONT (21:14)
--- NOTE | 2024-11-07 21:16 | PHA.MEDREC ---
Pharmacy Consult ? Medication Reconciliation Pharmacy has completed the medication reconciliation. Spoke to patient to confirm med list. Patient states he no longer takes Duloxetin 60 mg, Lantus 5 units (now on Trulicity 0.75 mg every Tuesday) Naproxen 500 mg, and Ondansetron 8 mg. Patient states he last took his medication Tuesday11/05/24.
--- NOTE | 2024-11-07 21:20 | PHA.MEDREC ---
Addendum entered by Reina Mcbride RPh 11/07/24 21:28: Med rec was reviewed by [facility]. Original Note: Pharmacy Consult ? Medication Reconciliation Pharmacy has completed the medication reconciliation. Spoke to patient to through translator/interpreter service (Jorge) confirm med list. Patient states he no longer takes Duloxetin 60 mg, Lantus 5 units (now on Trulicity 0.75 mg every Tuesday) Naproxen 500 mg, and Ondansetron 8 mg. Patient states he last took his medication Tuesday11/05/24.
[2024-11-07 22:59] VITALS: BP 119/53; PULSE 104; RESP 18; TEMP 36.9; O2SAT 95
[2024-11-08] VITALS (7 sets, daily range): BP systolic 103–159; BP diastolic 53–102; PULSE 73–94; RESP 16–20; TEMP 36.3–37; O2SAT 94–97; BMI 41.3
[2024-11-08] MEDS: Lactated Ringers 1,000 ML 150 ML IVCONT ×3 (03:12→17:41)
[2024-11-08] MEDS: metroNIDAZOLE/NS 500 MG/100 ML PIGGYBACK 100 MG IV ×3 (03:44→20:19)
[2024-11-08] MEDS: HYDROmorphone HCl 0.5 MG/0.5 ML SYRINGE IVPUSH ×2 (03:45→11:48)
[2024-11-08 04:33] LABS: CDiff Gene PCR NEGATIVE (Negative)
[2024-11-08 05:40] LABS: PLT CLUMP 1; Red Cell Distribution Width 14.3 % (11.0-16.0); SCAN SMEAR FLAG 1
[2024-11-08 05:42] LABS: Basophils Percent Auto 0.1 % (0-2); Eosinophils Absolute Auto 0.2 X10*3/uL (0.0-0.4); Eosinophils Percent Auto 1.8 % (0-4); Hemoglobin 13.5 g/dl (14.0-18.0); Imm Gran Abs Auto 0.04 X10*3/uL (0.00-0.03); Imm Gran Pct Auto 0.4 % (0.0-0.4); Lymphocytes Absolute Auto 1.2 X10*3/uL (1.2-4.9); Lymphocytes Percent Auto 12.9 % (20-40); Mean Corpuscular HGB Conc 32.9 g/dl (31.0-36.0); Mean Corpuscular Hemoglobin 30.3 pg (27.0-33.0); Mean Corpuscular Volume 91.9 fL (80.0-98.0); Mean Platelet Volume 10.4 fL (9.4-12.4); Monocytes Absolute Auto 0.9 X10*3/uL (0.1-1.2); Monocytes Percent Auto 9.1 % (2-11); Neutrophils Absolute Auto 7.3 x10*3/uL (2.0-8.3); Neutrophils Percent Auto 75.7 % (45-73); Red Blood Count 4.46 X10*6/uL (4.60-5.80)
[2024-11-08 05:43] LABS: MANUAL DIFF FLAG NO; Platelet Count 149 X10*3/uL (160-400); White Blood Count 9.6 X10*3/uL (4.8-10.8)
[2024-11-08 05:56] LABS: Alanine Aminotransferase 24 U/L (0-40); Albumin Level 3.4 g/dL (3.5-5.0); Alkaline Phosphatase 68 U/L (39-117); Anion Gap 13 (12-20); Aspartate Amino Transferase 17 U/L (5-37); Bilirubin Total 1.2 mg/dL (0.0-1.0); Blood Urea Nitrogen 29 mg/dL (9-16); Calcium 8.5 mg/dL (8.4-10.2); Carbon Dioxide 21 mmol/L (22-29); Chloride 110 mmol/L (96-108); Estimated Glomerular Filt Rate 52; Glucose Random 106 mg/dL (60-115); Magnesium 1.7 mg/dL (1.6-2.6); Potassium 3.6 mmol/L (3.3-5.1); Sodium 140 mmol/L (135-145); Total Protein 6.4 g/dL (6.5-8.0)
[2024-11-08 07:45] LABS: Glucose, Whole Blood 95 mg/dL (60-115)
--- NOTE | 2024-11-08 08:27 | P.PNGS_ITS ---
Subjective Subjective Date of Service: 11/08/24 Interval history: Feels much better Minimal abdominal pain No significant diarrhea No events overnight Physical Exam 2 Vital Signs: Vital Signs: Last Vital Signs Temp 98.5 F 11/08/24 05:18 Pulse 94 11/08/24 05:18 Resp 16 11/08/24 05:18 BP 103/53 L 11/08/24 05:18 Pulse Ox 96 11/08/24 05:18 O2 Del Method Room Air 11/08/24 05:18 BMI result Body Mass Index 40.0 Const: Other: Morbidly obese General: comfortable and no acute distress Resp: Effort & Inspection: normal respiratory effort Cardio: Rate: regular rate GI: Palpation (GI): Soft to palpation, not firm, nontender and no guarding Objective Data Active Medications Acetaminophen (Acetaminophen 325 Mg Tablet) 650 mg PO Q6H PRN PRN Reason: Pain, Mild 1-3,fever,headache Atorvastatin Calcium (Atorvastatin Calcium 80 Mg Tablet) 80 mg PO DAILY [facility] Ceftriaxone Sodium (Ceftriaxone Sodium 1 Gm Vial) 1 gm IVPUSH Q24H [facility] Clonazepam (Clonazepam 0.5 Mg Tablet) 0.5 mg PO BID PRN PRN Reason: Anxiety Glucose (Glucose Gel 15 Gm Gel..Gram.) 15 gm PO Q15M PRN; Protocol PRN Reason: per Hypoglycemia Standing Ord. Heparin Sodium (Porcine) (Heparin Sodium,Porcine 5,000 Unit/Ml Vial) 5,000 unit SUBCUT Q12H [facility] Hydromorphone HCl (Hydromorphone Hcl 0.5 Mg/0.5 Ml Syringe) 0.5 mg IVPUSH Q3H PRN; Protocol PRN Reason: abdominal pain Last Admin: 11/08/24 03:45 Dose: 0.5 mg Documented By: RE Lactated Ringer's (Lr) 1,000 mls @ 150 mls/hr IVCONT .Q6H40M [facility] Last Admin: 11/08/24 03:12 Dose: 150 mls/hr Documented By: RE Dextrose (D10) 250 mls @ 750 mls/hr IV Q15M PRN; Protocol PRN Reason: per Hypoglycemia Standing Ord. Metronidazole (Flagyl) 500 mg in 100 mls @ 100 mls/hr IV Q8H [facility] Last Infusion: 11/08/24 04:55 Dose: Infused Documented By: RE Insulin Human Lispro (Insulin Lispro 100 Unit/Ml 3 Ml Vial) 0 unit SUBCUT QIDACHS [facility]; Protocol Ondansetron HCl (Ondansetron Hcl 4 Mg/2 Ml Vial) 4 mg IVPUSH Q8H PRN PRN Reason: Nausea and Vomiting Sodium Chloride (0.9 % Sodium Chloride Flush 3 Ml Syringe) 3 ml IVFLUSH QSHIFT [facility] Last Admin: 11/08/24 01:04 Dose: Not Given Documented By: RE Non-Admin Reason: IV Running Labs 11/08/24 05:02 11/08/24 05:02 Labs: Laboratory Results - last 24 hr 11/07/24 11/07/24 11/07/24 14:48 19:03 20:38 MCV 89.4 MCH 30.6 MCHC 34.3 RDW 13.8 Plt Count 205 D MPV 10.1 Immature Gran % (Auto) 0.5 H Neut % (Auto) 86.1 H Lymph % (Auto) 5.8 L [place] % (Auto) 7.2 Eos % (Auto) 0.2 Baso % (Auto) 0.2 Lymph # (Auto) 1.0 L [place] # (Auto) 1.2 Eos # (Auto) 0.0 Baso # (Auto) 0.0 Abs Immat Gran (auto) 0.08 H Absolute Neuts (auto) 14.2 H Absolute Nucleated RBC 0.000 Nucleated RBC % (auto) 0.0 PT 12.3 INR 1.1 Anion Gap 12 Estim Creat Clear Calc 45.4 Estimated GFR 31 POC Glucose 142 H Random Glucose 173 H Lactic Acid 1.8 2.0 Calcium 11.5 H D Magnesium 2.0 Total Bilirubin 1.4 H AST 33 ALT 50 H Alkaline Phosphatase 111 Total Protein 9.9 H Albumin 5.2 H C. difficile Tox B Gene Influenza Type A (PCR) NEGATIVE Influenza Type B (PCR) NEGATIVE RSV RNA Qual (PCR) NEGATIVE SARS-CoV-2 RNA (RT-PCR) NEGATIVE 11/08/24 11/08/24 11/08/24 03:41 05:02 07:36 MCV 91.9 MCH 30.3 MCHC 32.9 RDW 14.3 Plt Count 149 L D MPV 10.4 Immature Gran % (Auto) 0.4 Neut % (Auto) 75.7 H Lymph % (Auto) 12.9 L [place] % (Auto) 9.1 Eos % (Auto) 1.8 Baso % (Auto) 0.1 Lymph # (Auto) 1.2 [place] # (Auto) 0.9 Eos # (Auto) 0.2 Baso # (Auto) 0.0 Abs Immat Gran (auto) 0.04 H Absolute Neuts (auto) 7.3 Absolute Nucleated RBC 0.000 Nucleated RBC % (auto) 0.0 PT INR Anion Gap 13 Estim Creat Clear Calc 70.0 Estimated GFR 52 POC Glucose 95 Random Glucose 106 Lactic Acid Calcium 8.5 D Magnesium 1.7 Total Bilirubin 1.2 H AST 17 ALT 24 Alkaline Phosphatase 68 Total Protein 6.4 L Albumin 3.4 L C. difficile Tox B Gene NEGATIVE Influenza Type A (PCR) Influenza Type B (PCR) RSV RNA Qual (PCR) SARS-CoV-2 RNA (RT-PCR) Procedures Date of Service Date of Service: 11/08/24 Progress Note: A&P Assessment and plan (1) Acute kidney insufficiency: Status: Acute Assessment and Plan: Diarrhea has resolved Abdominal pain much improved Abdominal exam does not reveal any significant tenderness, very benign White count normal Overall clinical picture not suggestive of acute appendicitis Likely had some form of gastroenteritis Okay to slowly advance diet as tolerated Looks well overall Time Spent With Patient Time: Total time managing care of this patient today ____ minutes. Quality Stroke Does the patient have a stroke diagnosis?: No VTE Prior VTE?: No VTE Risk Level:: Medical - moderate - high VTE Device Contraindication: Treatment Not Indicated VTE Drug Contraindication: N/A - Med Ordered
[2024-11-08] MEDS: Heparin Sodium,Porcine 5,000 UNIT/ML VIAL 5000 UNIT SUBCUT ×2 (08:33→20:20)
[2024-11-08] MEDS: Atorvastatin Calcium 80 MG TABLET PO (08:34)
[2024-11-08 09:20] LABS: Adenovirus F 40/41 Not Detected (Not Detect.); Astrovirus Not Detected (Not Detect.); Campylobacter Not Detected (Not Detect.); Cryptosporidium Not Detected (Not Detect.); Cyclospora cayetanensis Not Detected (Not Detect.); E. coli EAEC Not Detected (Not Detect.); E. coli EPEC Not Detected (Not Detect.); E. coli ETEC Not Detected (Not Detect.); E. coli STEC Not Detected (Not Detect.); Entamoeba histolytica Not Detected (Not Detect.); Giardia lamblia Not Detected (Not Detect.); Norovirus GI/GII Not Detected (Not Detect.); Plesiomonas shigelloides Not Detected (Not Detect.); Rotavirus A Not Detected (Not Detect.); Salmonella Not Detected (Not Detect.); Sapovirus Not Detected (Not Detect.); Shigella sp./EIEC Not Detected (Not Detect.); Vibrio Not Detected (Not Detect.); Vibrio Cholerae Not Detected (Not Detect.); Yersinia enterocolitica Not Detected (Not Detect.)
[2024-11-08] MEDS: ondansetron HCL 4 MG/2 ML VIAL IVPUSH (11:47)
--- NOTE | 2024-11-08 12:37 | P.PNIM_ITS ---
Subjective Subjective Date of Service: 11/08/24 Interval History: seen and examined this morning History obtained with the assistance of a document control coordinator Follow-up for abdominal pain ?colitis ?appendicitis Reports bilateral lower abdominal pain no nausea or vomiting; + diarrhea Review of Systems Review of Systems: Yes all other systems are reviewed and are negative Constitutional Constitutional: Denies chills and Denies fever(s) Cardiovascular Cardiovascular: Denies chest pain, Denies palpitations and Denies dyspnea Respiratory Respiratory: Denies cough and Denies dyspnea Gastrointestinal Gastrointestinal: Reports abdominal pain and Reports diarrhea Endocrine Endocrine: Denies palpitations Physical Exam 2 Vital Signs: Vital Signs: Last Vital Signs Temp 98.6 F 11/08/24 08:35 Pulse 94 11/08/24 08:35 Resp 16 11/08/24 08:35 BP 112/63 11/08/24 08:35 Pulse Ox 94 11/08/24 08:35 O2 Del Method Room Air 11/08/24 08:35 BMI result Body Mass Index 40.0 Const: General: alert, awake and Physically active Nutritional Appearance: obese Orientation/consciousness: patient oriented x3 Resp: Effort & Inspection: normal respiratory effort, able to speak in complete sentences, no respiratory distress and no use of accessory muscles Cardio: Rate: regular rate GI: Inspection: No distended Palpation (GI): Soft to palpation and nontender Neuro: General: patient oriented x3, moves all extremities and CN's II-XI intact bilaterally Extrem: General: Yes no pedal edema Objective Data Active Medications Acetaminophen (Acetaminophen 325 Mg Tablet) 650 mg PO Q6H PRN PRN Reason: Pain, Mild 1-3,fever,headache Atorvastatin Calcium (Atorvastatin Calcium 80 Mg Tablet) 80 mg PO DAILY [facility] Last Admin: 11/08/24 08:34 Dose: 80 mg Documented By: ASHLEIGH Ceftriaxone Sodium (Ceftriaxone Sodium 1 Gm Vial) 1 gm IVPUSH Q24H [facility] Clonazepam (Clonazepam 0.5 Mg Tablet) 0.5 mg PO BID PRN PRN Reason: Anxiety Glucose (Glucose Gel 15 Gm Gel..Gram.) 15 gm PO Q15M PRN; Protocol PRN Reason: per Hypoglycemia Standing Ord. Heparin Sodium (Porcine) (Heparin Sodium,Porcine 5,000 Unit/Ml Vial) 5,000 unit SUBCUT Q12H [facility] Last Admin: 11/08/24 08:33 Dose: 5,000 unit Documented By: ASHLEIGH Hydromorphone HCl (Hydromorphone Hcl 0.5 Mg/0.5 Ml Syringe) 0.5 mg IVPUSH Q3H PRN; Protocol PRN Reason: abdominal pain Last Admin: 11/08/24 11:48 Dose: 0.5 mg Documented By: ASHLEIGH Lactated Ringer's (Lr) 1,000 mls @ 150 mls/hr IVCONT .Q6H40M [facility] Last Admin: 11/08/24 11:00 Dose: 150 mls/hr Documented By: ASHLEIGH Dextrose (D10) 250 mls @ 750 mls/hr IV Q15M PRN; Protocol PRN Reason: per Hypoglycemia Standing Ord. Metronidazole (Flagyl) 500 mg in 100 mls @ 100 mls/hr IV Q8H [facility] Last Infusion: 11/08/24 04:55 Dose: Infused Documented By: RE Insulin Human Lispro (Insulin Lispro 100 Unit/Ml 3 Ml Vial) 0 unit SUBCUT QIDACHS [facility]; Protocol Last Admin: 11/08/24 08:34 Dose: Not Given Documented By: ASHLEIGH Non-Admin Reason: No Insulin Coverage Ondansetron HCl (Ondansetron Hcl 4 Mg/2 Ml Vial) 4 mg IVPUSH Q8H PRN PRN Reason: Nausea and Vomiting Last Admin: 11/08/24 11:47 Dose: 4 mg Documented By: ASHLEIGH Sodium Chloride (0.9 % Sodium Chloride Flush 3 Ml Syringe) 3 ml IVFLUSH QSHIFT [facility] Last Admin: 11/08/24 08:34 Dose: Not Given Documented By: ASHLEIGH Non-Admin Reason: Med Not Available Labs 11/08/24 05:02 11/08/24 05:02 Labs: Laboratory Results - last 24 hr 11/07/24 11/07/24 11/07/24 14:48 19:03 20:38 MCV 89.4 MCH 30.6 MCHC 34.3 RDW 13.8 Plt Count 205 D MPV 10.1 Immature Gran % (Auto) 0.5 H Neut % (Auto) 86.1 H Lymph % (Auto) 5.8 L [place] % (Auto) 7.2 Eos % (Auto) 0.2 Baso % (Auto) 0.2 Lymph # (Auto) 1.0 L [place] # (Auto) 1.2 Eos # (Auto) 0.0 Baso # (Auto) 0.0 Abs Immat Gran (auto) 0.08 H Absolute Neuts (auto) 14.2 H Absolute Nucleated RBC 0.000 Nucleated RBC % (auto) 0.0 PT 12.3 INR 1.1 Anion Gap 12 Estim Creat Clear Calc 45.4 Estimated GFR 31 POC Glucose 142 H Random Glucose 173 H Lactic Acid 1.8 2.0 Calcium 11.5 H D Magnesium 2.0 Total Bilirubin 1.4 H AST 33 ALT 50 H Alkaline Phosphatase 111 Total Protein 9.9 H Albumin 5.2 H Stl C. cayetanensis PCR Stool Rotavirus A PCR Stl Adenov F 40/ PCR Stool Astrovirus (PCR) Stool Campylobacter PCR Stool Cryptosporidium PCR Stl Sh Tox Pr E STEC PCR Stool E coli O157 PCR Stl Enterotoxigenic E PCR Stool EPEC (PCR) Stool EAEC (PCR) Stl E. histolytica PCR Stool Giardia Lamblia PCR Stl P. shigelloides PCR Stool Salmonella PCR Stool Sapovirus (PCR) Stl Shigella/EIEC PCR St Y.enterocolitica PCR Stool Vibrio (PCR) Stl Vibrio cholerae PCR Stl Norovirus GI/GII PCR C. difficile Tox B Gene Influenza Type A (PCR) NEGATIVE Influenza Type B (PCR) NEGATIVE RSV RNA Qual (PCR) NEGATIVE SARS-CoV-2 RNA (RT-PCR) NEGATIVE 11/08/24 11/08/24 11/08/24 03:41 05:02 07:36 MCV 91.9 MCH 30.3 MCHC 32.9 RDW 14.3 Plt Count 149 L D MPV 10.4 Immature Gran % (Auto) 0.4 Neut % (Auto) 75.7 H Lymph % (Auto) 12.9 L [place] % (Auto) 9.1 Eos % (Auto) 1.8 Baso % (Auto) 0.1 Lymph # (Auto) 1.2 [place] # (Auto) 0.9 Eos # (Auto) 0.2 Baso # (Auto) 0.0 Abs Immat Gran (auto) 0.04 H Absolute Neuts (auto) 7.3 Absolute Nucleated RBC 0.000 Nucleated RBC % (auto) 0.0 PT INR Anion Gap 13 Estim Creat Clear Calc 70.0 Estimated GFR 52 POC Glucose 95 Random Glucose 106 Lactic Acid Calcium 8.5 D Magnesium 1.7 Total Bilirubin 1.2 H AST 17 ALT 24 Alkaline Phosphatase 68 Total Protein 6.4 L Albumin 3.4 L Stl C. cayetanensis PCR Not Detected Stool Rotavirus A PCR Not Detected Stl Adenov F 40/41 PCR Not Detected Stool Astrovirus (PCR) Not Detected Stool Campylobacter PCR Not Detected Stool Cryptosporidium PCR Not Detected Stl Sh Tox Pr E STEC PCR Not Detected Stool E coli O157 PCR Not applicable Stl Enterotoxigenic E PCR Not Detected Stool EPEC (PCR) Not Detected Stool EAEC (PCR) Not Detected Stl E. histolytica PCR Not Detected Stool Giardia Lamblia PCR Not Detected Stl P. shigelloides PCR Not Detected Stool Salmonella PCR Not Detected Stool Sapovirus (PCR) Not Detected Stl Shigella/EIEC PCR Not Detected St Y.enterocolitica PCR Not Detected Stool Vibrio (PCR) Not Detected Stl Vibrio cholerae PCR Not Detected Stl Norovirus GI/GII PCR Not Detected C. difficile Tox B Gene NEGATIVE Influenza Type A (PCR) Influenza Type B (PCR) RSV RNA Qual (PCR) SARS-CoV-2 RNA (RT-PCR) Microbiology Microbiology Results: Microbiology 11/07/24 14:48 Blood Culture - Preliminary Blood - Venous Prelim: GPC Gram Stain only Assessment and Plan (1) Acute colitis: Status: Acute (2) TUNDE (acute kidney injury): Status: Acute Plan This is a 39 y/o male who presented with abdominal pain, nausea, vomiting, diarrhea with imaging concerning for colitis and possible appendicitis admitted for further evaluation TUNDE secondary to vomiting and diarrhea. Avoid nephrotoxic agents Hold losartan SCr improved from 2.34 to 1.52 Continue to monitor renal function abdominal pain Acute colitis. ?Appendicitis Continue empiric IV antibiotic therapy with ceftriaxone and Flagyl C diff and GI panel negative general surgery following less likely appendicitis-no surgical intervention planned at this time possible GPC bacteremia 1/2 blood cultures growing GPC - PCR MRSA and staph aureus negative will increase dose of ceftriaxone to 2 gm for now Probable [id number] final results Leukocytosis and tachycardia likely secondary to dehydration due to vomiting and diarrhea. Normal lactic acid x2. Doubt sepsis. Continue IV fluids Type 2 diabetes mellitus. Hold metformin and Trulicity on clear liquid diet Insulin sliding scale for now. Essential hypertension. Hold amlodipine and losartan for now due to soft blood pressure and TUNDE Hypercholesterolemia. Hold statin for now KUNAL Nocturnal CPAP. DVT prophylaxis: Heparin Code status: Full Requires ongoing inpatient stay for TUNDE treatment with IV fluids and continuous monitoring of renal function, IV antibiotic therapy for colitis. Quality Stroke Does the patient have a stroke diagnosis?: No VTE Prior VTE?: No VTE Risk Level:: Medical - moderate - high VTE Device Contraindication: Treatment Not Indicated VTE Drug Contraindication: N/A - Med Ordered
[2024-11-08 13:02] LABS: Glucose, Whole Blood 102 mg/dL (60-115)
[2024-11-08 16:40] LABS: Glucose, Whole Blood 88 mg/dL (60-115)
[2024-11-08 20:18] LABS: Glucose, Whole Blood 108 mg/dL (60-115)
[2024-11-08] MEDS: cefTRIAXone sodium 2 GM VIAL IVPUSH (20:19)
[2024-11-09 03:20] VITALS: BP 124/79; PULSE 72; RESP 20; TEMP 36.4; O2SAT 95
[2024-11-09] MEDS: Lactated Ringers 1,000 ML 150 ML IVCONT ×2 (03:27→10:31)
[2024-11-09] MEDS: metroNIDAZOLE/NS 500 MG/100 ML PIGGYBACK 100 MG IV ×3 (03:27→19:26)
[2024-11-09] MEDS: Omeprazole 20 MG CAPSULE.DR PO (06:29)
[2024-11-09 07:18] LABS: Glucose, Whole Blood 89 mg/dL (60-115)
[2024-11-09 07:21] LABS: Hematocrit 39.4 % (42.0-52.0); Hemoglobin 13.3 g/dl (14.0-18.0); Mean Corpuscular HGB Conc 33.8 g/dl (31.0-36.0); Mean Corpuscular Hemoglobin 30.5 pg (27.0-33.0); Mean Corpuscular Volume 90.4 fL (80.0-98.0); Mean Platelet Volume 9.9 fL (9.4-12.4); Platelet Count 135 X10*3/uL (160-400); Red Blood Count 4.36 X10*6/uL (4.60-5.80); Red Cell Distribution Width 13.8 % (11.0-16.0); White Blood Count 7.2 X10*3/uL (4.8-10.8)
[2024-11-09 07:33] VITALS: BP 150/96; PULSE 81; RESP 18; TEMP 36.4; O2SAT 98
[2024-11-09 07:51] LABS: Anion Gap 10 (12-20); Calcium 8.8 mg/dL (8.4-10.2); Carbon Dioxide 26 mmol/L (22-29); Chloride 109 mmol/L (96-108); Glucose Random 91 mg/dL (60-115); Potassium 3.5 mmol/L (3.3-5.1); Sodium 141 mmol/L (135-145)
--- NOTE | 2024-11-09 07:53 | PM.PNGS ---
Subjective Subjective Date of Service: 11/09/24 Interval history: Feels better Denies abdominal pain No vomiting No diarrhea Says he sometimes feels lightheaded and weak Physical Exam Vital Signs: Vital Signs: Last Vital Signs Temp 97.5 F 11/09/24 07:33 Pulse 81 11/09/24 07:33 Resp 18 11/09/24 07:33 BP 150/96 H 11/09/24 07:33 Pulse Ox 98 11/09/24 07:33 O2 Del Method Room Air 11/09/24 07:33 BMI result Body Mass Index 41.3 Const: General: comfortable and no acute distress Nutritional Appearance: obese Resp: Effort & Inspection: normal respiratory effort Cardio: Rate: regular rate GI: Palpation (GI): Soft to palpation, not firm, nontender and no guarding Objective Data Active Medications Acetaminophen (Acetaminophen 325 Mg Tablet) 650 mg PO Q6H PRN PRN Reason: Pain, Mild 1-3,fever,headache Ceftriaxone Sodium (Ceftriaxone Sodium 2 Gm Vial) 2 gm IVPUSH Q24H [facility] Last Admin: 11/08/24 20:19 Dose: 2 gm Documented By: MARGRET Clonazepam (Clonazepam 0.5 Mg Tablet) 0.5 mg PO BID PRN PRN Reason: Anxiety Glucose (Glucose Gel 15 Gm Gel..Gram.) 15 gm PO Q15M PRN; Protocol PRN Reason: per Hypoglycemia Standing Ord. Heparin Sodium (Porcine) (Heparin Sodium,Porcine 5,000 Unit/Ml Vial) 5,000 unit SUBCUT Q12H [facility] Last Admin: 11/08/24 20:20 Dose: 5,000 unit Documented By: MARGRET Hydromorphone HCl (Hydromorphone Hcl 0.5 Mg/0.5 Ml Syringe) 0.5 mg IVPUSH Q3H PRN; Protocol PRN Reason: abdominal pain Last Admin: 11/08/24 11:48 Dose: 0.5 mg Documented By: ASHLEIGH Lactated Ringer's (Lr) 1,000 mls @ 150 mls/hr IVCONT .Q6H40M [facility] Last Admin: 11/09/24 06:56 Dose: Not Given Documented By: MARGRET Non-Admin Reason: IV Running Dextrose (D10) 250 mls @ 750 mls/hr IV Q15M PRN; Protocol PRN Reason: per Hypoglycemia Standing Ord. Metronidazole (Flagyl) 500 mg in 100 mls @ 100 mls/hr IV Q8H [facility] Last Infusion: 11/09/24 04:28 Dose: Infused Documented By: MARGRET Insulin Human Lispro (Insulin Lispro 100 Unit/Ml 3 Ml Vial) 0 unit SUBCUT QIDACHS [facility]; Protocol Last Admin: 11/09/24 07:47 Dose: Not Given Documented By: LINDA Non-Admin Reason: No Insulin Coverage Omeprazole (Omeprazole 20 Mg Capsule.Dr) 20 mg PO DAILY@0630 [facility] Last Admin: 11/09/24 06:29 Dose: 20 mg Documented By: MARGRET Ondansetron HCl (Ondansetron Hcl 4 Mg/2 Ml Vial) 4 mg IVPUSH Q8H PRN PRN Reason: Nausea and Vomiting Last Admin: 11/08/24 11:47 Dose: 4 mg Documented By: ASHLEIGH Sodium Chloride (0.9 % Sodium Chloride Flush 3 Ml Syringe) 3 ml IVFLUSH QSHIFT [facility] Last Admin: 11/08/24 20:27 Dose: Not Given Documented By: MARGRET Non-Admin Reason: IV Running Labs 11/09/24 06:35 11/09/24 06:35 Labs: Laboratory Results - last 24 hr 11/08/24 11/08/24 11/08/24 03:41 12:59 16:34 MCV MCH MCHC RDW Plt Count MPV Absolute Nucleated RBC Nucleated RBC % (auto) Anion Gap POC Glucose 102 88 Random Glucose Calcium Stl C. cayetanensis PCR Not Detected Stool Rotavirus A PCR Not Detected Stl Adenov F 40/41 PCR Not Detected Stool Astrovirus (PCR) Not Detected Stool Campylobacter PCR Not Detected Stool Cryptosporidium PCR Not Detected Stl Sh Tox Pr E STEC PCR Not Detected Stool E coli O157 PCR Not applicable Stl Enterotoxigenic E PCR Not Detected Stool EPEC (PCR) Not Detected Stool EAEC (PCR) Not Detected Stl E. histolytica PCR Not Detected Stool Giardia Lamblia PCR Not Detected Stl P. shigelloides PCR Not Detected Stool Salmonella PCR Not Detected Stool Sapovirus (PCR) Not Detected Stl Shigella/EIEC PCR Not Detected St Y.enterocolitica PCR Not Detected Stool Vibrio (PCR) Not Detected Stl Vibrio cholerae PCR Not Detected Stl Norovirus GI/GII PCR Not Detected 11/08/24 11/09/24 11/09/24 20:15 06:35 07:13 MCV 90.4 MCH 30.5 MCHC 33.8 RDW 13.8 Plt Count 135 L MPV 9.9 Absolute Nucleated RBC 0.000 Nucleated RBC % (auto) 0.0 Anion Gap 10 L POC Glucose 108 89 Random Glucose 91 Calcium 8.8 Stl C. cayetanensis PCR Stool Rotavirus A PCR Stl Adenov F 40/41 PCR Stool Astrovirus (PCR) Stool Campylobacter PCR Stool Cryptosporidium PCR Stl Sh Tox Pr E STEC PCR Stool E coli O157 PCR Stl Enterotoxigenic E PCR Stool EPEC (PCR) Stool EAEC (PCR) Stl E. histolytica PCR Stool Giardia Lamblia PCR Stl P. shigelloides PCR Stool Salmonella PCR Stool Sapovirus (PCR) Stl Shigella/EIEC PCR St Y.enterocolitica PCR Stool Vibrio (PCR) Stl Vibrio cholerae PCR Stl Norovirus GI/GII PCR Microbiology Microbiology Results: Microbiology 11/07/24 19:03 Blood Culture - Preliminary Blood - Venous No growth after 24 hours. 11/07/24 19:03 Blood Culture - Preliminary Blood - Venous No growth after 24 hours. 11/07/24 14:48 Blood Culture - Preliminary Blood - Venous No growth after 24 hours. 11/07/24 14:48 Blood Culture - Preliminary Blood - Venous Prelim: GPC Gram Stain only Procedures Date of Service Date of Service: 11/09/24 Progress Note: A&P Assessment and plan (1) Diarrhea: Status: Acute Assessment and Plan: Clinically not acute appendicitis Abdominal exam very benign Symptoms much Looks well clinically The rest of care as per medical service Time Spent With Patient Time: Total time managing care of this patient today ____ minutes. Quality Stroke Does the patient have a stroke diagnosis?: No VTE Prior VTE?: No VTE Risk Level:: Medical - moderate - high VTE Device Contraindication: Treatment Not Indicated VTE Drug Contraindication: N/A - Med Ordered
[2024-11-09 08:05] LABS: Blood Urea Nitrogen 11 mg/dL (9-16); Creatinine Clr Calc Pharmacy 161.5; Estimated Glomerular Filt Rate > 60
[2024-11-09] MEDS: Heparin Sodium,Porcine 5,000 UNIT/ML VIAL 5000 UNIT SUBCUT ×2 (09:02→19:27)
[2024-11-09 11:09] LABS: Glucose, Whole Blood 101 mg/dL (60-115)
[2024-11-09 11:59] VITALS: BP 152/98; PULSE 77; RESP 20; TEMP 36.6; O2SAT 98
--- NOTE | 2024-11-09 12:49 | MHC.CM.PN ---
Pt lives alone, is functionally independent, no home health services or DME. He has HCP, naming Jeny Gaona, copy requested. he is able to arrange transport home at [place]. DCP: home, self care. CM to follow for DC needs.
--- NOTE | 2024-11-09 14:14 | P.PNIM_ITS ---
Subjective Subjective Date of Service: 11/09/24 Interval History: Seen and examined this morning Follow-up for colitis Still with some diarrhea but overall improving Has generalized abdominal pain. No nausea, no vomiting, tolerating full liquids Review of Systems Review of Systems: Yes all other systems are reviewed and are negative Constitutional Constitutional: Denies chills and Denies fever(s) Physical Exam 2 Vital Signs: Vital Signs: Last Vital Signs Temp 97.8 F 11/09/24 11:59 Pulse 77 11/09/24 11:59 Resp 20 11/09/24 11:59 BP 152/98 H 11/09/24 11:59 Pulse Ox 98 11/09/24 11:59 O2 Del Method Room Air 11/09/24 11:59 BMI result Body Mass Index 41.3 Const: General: alert, awake and Physically active Nutritional Appearance: obese Orientation/consciousness: patient oriented x3 Resp: Effort & Inspection: normal respiratory effort, able to speak in complete sentences, no respiratory distress and no use of accessory muscles Cardio: Rate: regular rate GI: Inspection: No distended Palpation (GI): Soft to palpation and nontender Neuro: General: patient oriented x3, moves all extremities and CN's II-XI intact bilaterally Extrem: General: Yes no pedal edema Objective Data Active Medications Acetaminophen (Acetaminophen 325 Mg Tablet) 650 mg PO Q6H PRN PRN Reason: Pain, Mild 1-3,fever,headache Ceftriaxone Sodium (Ceftriaxone Sodium 2 Gm Vial) 2 gm IVPUSH Q24H [facility] Last Admin: 11/08/24 20:19 Dose: 2 gm Documented By: MARGRET Clonazepam (Clonazepam 0.5 Mg Tablet) 0.5 mg PO BID PRN PRN Reason: Anxiety Glucose (Glucose Gel 15 Gm Gel..Gram.) 15 gm PO Q15M PRN; Protocol PRN Reason: per Hypoglycemia Standing Ord. Heparin Sodium (Porcine) (Heparin Sodium,Porcine 5,000 Unit/Ml Vial) 5,000 unit SUBCUT Q12H [facility] Last Admin: 11/09/24 09:02 Dose: 5,000 unit Documented By: LINDA Hydromorphone HCl (Hydromorphone Hcl 0.5 Mg/0.5 Ml Syringe) 0.5 mg IVPUSH Q3H PRN; Protocol PRN Reason: abdominal pain Last Admin: 11/08/24 11:48 Dose: 0.5 mg Documented By: ASHLEIGH Lactated Ringer's (Lr) 1,000 mls @ 100 mls/hr IVCONT .Q10H [facility] Last Admin: 11/09/24 11:51 Dose: Not Given Documented By: LINDA Non-Admin Reason: IV Running Dextrose (D10) 250 mls @ 750 mls/hr IV Q15M PRN; Protocol PRN Reason: per Hypoglycemia Standing Ord. Metronidazole (Flagyl) 500 mg in 100 mls @ 100 mls/hr IV Q8H [facility] Last Infusion: 11/09/24 13:00 Dose: Infused Documented By: LINDA Insulin Human Lispro (Insulin Lispro 100 Unit/Ml 3 Ml Vial) 0 unit SUBCUT QIDACHS [facility]; Protocol Last Admin: 11/09/24 11:13 Dose: Not Given Documented By: LINDA Non-Admin Reason: No Insulin Coverage Omeprazole (Omeprazole 20 Mg Capsule.) 20 mg PO DAILY@0630 [facility] Last Admin: 11/09/24 06:29 Dose: 20 mg Documented By: MARGRET Ondansetron HCl (Ondansetron Hcl 4 Mg/2 Ml Vial) 4 mg IVPUSH Q8H PRN PRN Reason: Nausea and Vomiting Last Admin: 11/08/24 11:47 Dose: 4 mg Documented By: ASHLEIGH Sodium Chloride (0.9 % Sodium Chloride Flush 3 Ml Syringe) 3 ml IVFLUSH QSHIFT [facility] Last Admin: 11/09/24 09:03 Dose: Not Given Documented By: LINDA Non-Admin Reason: IV Running Labs 11/09/24 06:35 11/09/24 06:35 Labs: Laboratory Results - last 24 hr 11/08/24 11/08/24 11/09/24 16:34 20:15 06:35 MCV 90.4 MCH 30.5 MCHC 33.8 RDW 13.8 Plt Count 135 L MPV 9.9 Absolute Nucleated RBC 0.000 Nucleated RBC % (auto) 0.0 Anion Gap 10 L Estim Creat Clear Calc 161.5 Estimated GFR > 60 POC Glucose 88 108 Random Glucose 91 Calcium 8.8 11/09/24 11/09/24 07:13 11:03 MCV MCH MCHC RDW Plt Count MPV Absolute Nucleated RBC Nucleated RBC % (auto) Anion Gap Estim Creat Clear Calc Estimated GFR POC Glucose 89 101 Random Glucose Calcium Microbiology Microbiology Results: Microbiology 11/07/24 14:48 Blood Culture - Final Blood - Venous Coag negative Staphylococcus 11/07/24 19:03 Blood Culture - Preliminary Blood - Venous No growth after 24 hours. 11/07/24 19:03 Blood Culture - Preliminary Blood - Venous No growth after 24 hours. 11/07/24 14:48 Blood Culture - Preliminary Blood - Venous No growth after 24 hours. Assessment and Plan (1) Acute colitis: Status: Acute (2) TUNDE (acute kidney injury): Status: Acute Plan This is a 39 y/o male who presented with abdominal pain, nausea, vomiting, diarrhea with imaging concerning for colitis and possible appendicitis admitted for further evaluation TUNDE secondary to vomiting and diarrhea resolved Avoid nephrotoxic agents Hold losartan abdominal pain Acute colitis. ?Appendicitis Continue empiric IV antibiotic therapy with ceftriaxone and Flagyl C diff and GI panel negative general surgery following less likely appendicitis-no surgical intervention planned at this time GPC bacteremia ruled out 1/2 blood cultures growing coagulase-negative staph - contamination Leukocytosis and tachycardia likely secondary to dehydration due to vomiting and diarrhea. Normal lactic acid x2. Doubt sepsis. Continue IV fluids Type 2 diabetes mellitus. Hold metformin and Trulicity on full liquid diet Insulin sliding scale for now. Essential hypertension. Hold amlodipine and losartan for now due to soft blood pressure and TUNDE Hypercholesterolemia. Hold statin for now KUNAL Nocturnal CPAP. DVT prophylaxis: Heparin Code status: Full Requires ongoing inpatient stay for TUNDE treatment with IV fluids and continuous monitoring of renal function, IV antibiotic therapy for colitis. Quality Stroke Does the patient have a stroke diagnosis?: No VTE Prior VTE?: No VTE Risk Level:: Medical - moderate - high VTE Device Contraindication: Treatment Not Indicated VTE Drug Contraindication: N/A - Med Ordered
[2024-11-09] MEDS: cefTRIAXone sodium 1 GM VIAL IVPUSH (14:27)
[2024-11-09 16:00] VITALS: BP 148/94; PULSE 78; RESP 18; TEMP 36.4; O2SAT 96
[2024-11-09 16:39] LABS: Glucose, Whole Blood 93 mg/dL (60-115)
[2024-11-09] MEDS: Lactated Ringers 1,000 ML 100 ML IVCONT (19:27)
[2024-11-09 19:41] VITALS: BP 137/90; PULSE 71; RESP 18; TEMP 36.3; O2SAT 97
[2024-11-09 20:29] LABS: Glucose, Whole Blood 118 mg/dL (60-115)
[2024-11-09] MEDS: Acetaminophen 325 MG TABLET 650 MG PO (23:22)
[2024-11-09 23:30] VITALS: PULSE 77; RESP 26; O2SAT 96
[2024-11-10] VITALS (8 sets, daily range): BP systolic 126–143; BP diastolic 80–93; PULSE 58–82; RESP 16–18; TEMP 36.1–37; O2SAT 95–99
[2024-11-10] MEDS: metroNIDAZOLE/NS 500 MG/100 ML PIGGYBACK 100 MG IV (05:24)
[2024-11-10] MEDS: Omeprazole 20 MG CAPSULE.DR PO (05:24)
[2024-11-10 07:24] LABS: Glucose, Whole Blood 98 mg/dL (60-115)
[2024-11-10] MEDS: HYDROmorphone HCl 0.5 MG/0.5 ML SYRINGE IVPUSH (08:49)
[2024-11-10] MEDS: metroNIDAZOLE 500 MG TABLET PO ×3 (08:50→20:06)
[2024-11-10] MEDS: Heparin Sodium,Porcine 5,000 UNIT/ML VIAL 5000 UNIT SUBCUT ×2 (08:50→20:07)
[2024-11-10] MEDS: ondansetron HCL 4 MG/2 ML VIAL IVPUSH (08:50)
[2024-11-10] MEDS: 0.9 % Sodium Chloride Flush 3 ML SYRINGE IVFLUSH ×3 (08:50→20:07)
[2024-11-10 11:45] LABS: Glucose, Whole Blood 116 mg/dL (60-115)
[2024-11-10] MEDS: cefTRIAXone sodium 1 GM VIAL IVPUSH (15:23)
[2024-11-10 15:28] LABS: Glucose, Whole Blood 118 mg/dL (60-115)
--- NOTE | 2024-11-10 15:41 | HO.PM.IMPN ---
Subjective Subjective Date of Service: 11/10/24 Interval History: Seen and examined this morning Follow-up for colitis History obtained with the assistance of a motor vehicle parts interpreter Not willing to advance diet at this time No nausea, vomiting; overall improving Review of Systems Review of Systems: Yes all other systems are reviewed and are negative Constitutional Constitutional: Denies chills and Denies fever(s) Cardiovascular Cardiovascular: Denies chest pain and Denies dyspnea Respiratory Respiratory: Denies cough and Denies dyspnea Gastrointestinal Gastrointestinal: Denies nausea and Denies vomiting Physical Exam Vital Signs: Vital Signs: Last Vital Signs Temp 97.0 F 11/10/24 15:20 Pulse 69 11/10/24 15:20 Resp 18 11/10/24 15:20 BP 132/80 11/10/24 15:20 Pulse Ox 99 11/10/24 15:20 O2 Del Method Room Air 11/10/24 15:20 BMI result Body Mass Index 41.3 Const: General: alert, awake and Physically active Nutritional Appearance: obese Orientation/consciousness: patient oriented x3 Resp: Effort & Inspection: normal respiratory effort, able to speak in complete sentences, no respiratory distress and no use of accessory muscles Cardio: Rate: regular rate GI: Inspection: No distended Palpation (GI): Soft to palpation and nontender Neuro: General: patient oriented x3, moves all extremities and CN's II-XI intact bilaterally Extrem: General: Yes no pedal edema Objective Data Active Medications Acetaminophen (Acetaminophen 325 Mg Tablet) 650 mg PO Q6H PRN PRN Reason: Pain, Mild 1-3,fever,headache Last Admin: 11/09/24 23:22 Dose: 650 mg Documented By: MARGRET Ceftriaxone Sodium (Ceftriaxone Sodium 1 Gm Vial) 1 gm IVPUSH Q24H [facility] Last Admin: 11/10/24 15:23 Dose: 1 gm Documented By: LINDSEY Clonazepam (Clonazepam 0.5 Mg Tablet) 0.5 mg PO BID PRN PRN Reason: Anxiety Glucose (Glucose Gel 15 Gm Gel..Gram.) 15 gm PO Q15M PRN; Protocol PRN Reason: per Hypoglycemia Standing Ord. Heparin Sodium (Porcine) (Heparin Sodium,Porcine 5,000 Unit/Ml Vial) 5,000 unit SUBCUT Q12H [facility] Last Admin: 11/10/24 08:50 Dose: 5,000 unit Documented By: HO.RIOSCEL Hydromorphone HCl (Hydromorphone Hcl 0.5 Mg/0.5 Ml Syringe) 0.5 mg IVPUSH Q3H PRN; Protocol PRN Reason: abdominal pain Last Admin: 11/10/24 08:49 Dose: 0.5 mg Documented By: LINDSEY Dextrose (D10) 250 mls @ 750 mls/hr IV Q15M PRN; Protocol PRN Reason: per Hypoglycemia Standing Ord. Insulin Human Lispro (Insulin Lispro 100 Unit/Ml 3 Ml Vial) 0 unit SUBCUT QIDACHS [facility]; Protocol Last Admin: 11/10/24 15:25 Dose: Not Given Documented By: LINDSEY Non-Admin Reason: No Insulin Coverage Metronidazole (Metronidazole 500 Mg Tablet) 500 mg PO TID [facility] Last Admin: 11/10/24 15:23 Dose: 500 mg Documented By: LINDSEY Omeprazole (Omeprazole 20 Mg Capsule.Dr) 20 mg PO DAILY@0630 [facility] Last Admin: 11/10/24 05:24 Dose: 20 mg Documented By: MARGRET Ondansetron HCl (Ondansetron Hcl 4 Mg/2 Ml Vial) 4 mg IVPUSH Q8H PRN PRN Reason: Nausea and Vomiting Last Admin: 11/10/24 08:50 Dose: 4 mg Documented By: LINDSEY Sodium Chloride (0.9 % Sodium Chloride Flush 3 Ml Syringe) 3 ml IVFLUSH QSHIFT [facility] Last Admin: 11/10/24 15:23 Dose: 3 ml Documented By: LINDSEY Labs 11/09/24 06:35 11/09/24 06:35 Labs: Laboratory Results - last 24 hr 11/09/24 11/09/24 11/10/24 16:15 20:18 07:09 POC Glucose 93 118 H 98 11/10/24 11/10/24 11:37 15:24 POC Glucose 116 H 118 H Microbiology Microbiology Results: Microbiology 11/07/24 19:03 Blood Culture - Preliminary Blood - Venous No growth after 48 hours. 11/07/24 19:03 Blood Culture - Preliminary Blood - Venous No growth after 48 hours. 11/07/24 14:48 Blood Culture - Preliminary Blood - Venous No growth after 48 hours. 11/07/24 14:48 Blood Culture - Final Blood - Venous Coag negative Staphylococcus Assessment and Plan (1) Acute colitis: Status: Acute Plan This is a 39 y/o male who presented with abdominal pain, nausea, vomiting, diarrhea with imaging concerning for colitis and possible appendicitis admitted for further evaluation TUNDE secondary to vomiting and diarrhea resolved Avoid nephrotoxic agents Hold losartan abdominal pain Acute colitis. ?Appendicitis Continue empiric IV antibiotic therapy with ceftriaxone and Flagyl C diff and GI panel negative general surgery following less likely appendicitis-no surgical intervention planned at this time GPC bacteremia ruled out 1/2 blood cultures growing coagulase-negative staph - contamination Leukocytosis and tachycardia likely secondary to dehydration due to vomiting and diarrhea. Normal lactic acid x2. Doubt sepsis. Continue IV fluids Type 2 diabetes mellitus. Hold metformin and Trulicity on full liquid diet Insulin sliding scale for now. Essential hypertension. Hold amlodipine and losartan for now due to soft blood pressure and TUNDE Hypercholesterolemia. Hold statin for now KUNAL Nocturnal CPAP. DVT prophylaxis: Heparin Code status: Full Requires ongoing inpatient stay for TUNDE treatment with IV fluids and continuous monitoring of renal function, IV antibiotic therapy for colitis. Quality Stroke Does the patient have a stroke diagnosis?: No VTE Prior VTE?: No VTE Risk Level:: Medical - moderate - high VTE Device Contraindication: Treatment Not Indicated VTE Drug Contraindication: N/A - Med Ordered
[2024-11-10 21:07] LABS: Glucose, Whole Blood 104 mg/dL (60-115)
[2024-11-11] VITALS: BP 136/83; PULSE 66; RESP 16; TEMP 36.4; O2SAT 95
[2024-11-11 03:54] VITALS: BP 111/68; PULSE 67; RESP 14; TEMP 36; O2SAT 93
[2024-11-11] MEDS: Omeprazole 20 MG CAPSULE.DR PO (05:19)
[2024-11-11 07:04] VITALS: BP 136/85; PULSE 75; RESP 18; TEMP 36.3; O2SAT 97
[2024-11-11 07:28] LABS: Glucose, Whole Blood 91 mg/dL (60-115)
[2024-11-11] MEDS: metroNIDAZOLE 500 MG TABLET PO (08:51)
[2024-11-11] MEDS: Heparin Sodium,Porcine 5,000 UNIT/ML VIAL 5000 UNIT SUBCUT (08:52)
[2024-11-11] MEDS: 0.9 % Sodium Chloride Flush 3 ML SYRINGE IVFLUSH (08:52)
[2024-11-11 11:15] LABS: Glucose, Whole Blood 88 mg/dL (60-115)
--- NOTE | 2024-11-11 11:27 | PM.DS ---
DS: Providers Provider Date of Service: 11/11/24 Date of admission: 11/07/24 20:27 Date of discharge: 11/11/24 Primary care physician: Jazzmine Johnson MD Consults: 11/08/24 11:39 Consult to General Surgery Routine Consulting [place] [facility] Reason for consultation: ?appendicitis Has provider been notified: Yes Attending physician on discharge: [facility] Discharging clinician: Amelie Tinoco DS: Diagnosis Discharge Diagnosis (1) Acute colitis: Status: Acute DS: Summary Hospital Course Hospital Course: From H&P on the day of admission Yang Trevino is a 39 years old man with past medical history significant for type 2 diabetes mellitus on metformin + Trulicity, essential hypertension, KUNAL on CPAP and hypercholesterolemia presents to the emergency department generalized abdominal pain that started this morning around 10 am followed by multiple events of bilious vomiting (X10) and nonbloody watery diarrhea. He also reported dizziness, chills and palpitations. He did report some pain with urination. Denied headache, sore throat, chest pain, shortness breath, fever or headache. Last meal before symptom was hot dogs X3. Denied recent use antibiotics we will contact with ill people. He has no history of abdominal surgeries. In the ED, he was initially found to have hypotension. He continues with tachycardia. There is no fever, tachypnea and oxygen saturation is normal on room air. Blood workup was remarkable for leukocytosis of 16.5 hemoglobin is 18.4 and platelets are normal. There are no significant electrolyte imbalances except for hypercalcemia, 11.5. Creatinine is 2.34 (prior was normal) and BUN of 19. Glucose 173. And lactic acid is normal x2. LFTs remarkable for slight elevation in ALT and total bilirubin, 1.4. Viral testing for influenza, RSV and COVID is negative. Abdominal pelvis CT scan showed mild dilatation of the appendix concerning for appendicitis and mild colitis. ECG is remarkable for sinus tachycardia, 117 bpm. ED tx: NS drip L bolus, ketorolac 15 mg IV, Zofran 4 mg IV, Tylenol 650 mg p.o., ceftriaxone 1 g IV and Flagyl 500 mg IV TUNDE secondary to vomiting and diarrhea. resolved with IVF abdominal pain Acute colitis. ?Appendicitis. Treated with IV antibiotic therapy with ceftriaxone and Flagyl. C diff and GI panel negative. seen by general surgery not likely appendicitis-no surgical indicated. abdominal pain improved, tolerated diet advancement. GPC bacteremia ruled out 1/2 blood cultures growing coagulase-negative staph - contamination Leukocytosis and tachycardia likely secondary to dehydration due to vomiting and diarrhea. Normal lactic acid x2. Doubt sepsis. resolved HTN losartan was initially held due to tunde, renal function has improved back to baseline. Can be resumed upon discharge Time Attestation Discharge Coordination Time (in mins): 36 Quality: Safe Use of Opioids Does Pt have an Active Cancer Diagnosis on the Problem List?: No Quality: Stroke Does the patient have a stroke diagnosis?: No Physical Exam Vital Signs: Vital Signs: Last Vital Signs Temp 97.4 F 11/11/24 07:04 Pulse 75 11/11/24 07:04 Resp 18 11/11/24 07:04 BP 136/85 11/11/24 07:04 Pulse Ox 97 11/11/24 07:04 O2 Del Method Room Air 11/11/24 07:04 BMI result Body Mass Index 41.3 Const: General: alert, awake and Physically active Nutritional Appearance: obese Orientation/consciousness: patient oriented x3 Resp: Effort & Inspection: normal respiratory effort, able to speak in complete sentences, no respiratory distress and no use of accessory muscles Cardio: Rate: regular rate GI: Inspection: No distended Palpation (GI): Soft to palpation and nontender Neuro: General: patient oriented x3, moves all extremities and CN's II-XI intact bilaterally Extrem: General: Yes no pedal edema DS: Data Data Completed and Pending Labs on day of discharge: Laboratory Results - last 24 hr 11/10/24 11/10/24 11/10/24 11:37 15:24 20:16 POC Glucose 116 H 118 H 104 11/11/24 11/11/24 07:09 11:11 POC Glucose 91 88 Preliminary micro results at discharge 11/07/24 19:03 Blood Culture - Preliminary Blood - Venous No growth after 48 hours. 11/07/24 19:03 Blood Culture - Preliminary Blood - Venous No growth after 48 hours. 11/07/24 14:48 Blood Culture - Preliminary Blood - Venous No growth after 48 hours. Discharge Plan Discharge Anticipated Discharge Date/Time: 11/11/24 11:35 Patient Disposition: Home, Self-Care Discharge Diagnosis: colitis tunde Referrals: Jazzmine Alvarado MD [Primary Care Provider] - 1 Week Discharge Medications: New cefuroxime axetil 250 mg tablet 250 mg PO Q12H 2 Days Qty: 4 0RF metronidazole 250 mg tablet 500 mg PO Q12H 2 Days Qty: 8 0RF oxycodone 5 mg tablet 5 mg PO BID PRN (Reason: severe pain (scale score 7-10)) Qty: 6 0RF Rx Instructions: Partial Fill upon patient request. Continued metformin 500 mg tablet 1,000 mg PO BIDWMEAL 90 Days Qty: 360 3RF losartan 25 mg tablet 25 mg PO DAILY 90 Days Qty: 90 1RF rosuvastatin 40 mg tablet 40 mg PO DAILY 90 Days Qty: 90 1RF cholecalciferol (vitamin D3) 25 mcg (1,000 unit) capsule 25 mcg PO DAILY 90 Days Qty: 90 1RF amlodipine 5 mg tablet 5 mg PO DAILY 90 Days Qty: 90 0RF omeprazole 20 mg capsule,delayed release(DR/EC) 20 mg PO DAILY Qty: 90 0RF Trulicity 0.75 mg/0.5 mL pen injector 0.75 mg SUBCUT MO clonazepam 0.5 mg tablet 0.5 mg PO BID PRN (Reason: Anxiety) No Action (DME) blood pressure monitor Kit See Rx Instructions .Route Qty: 1 0RF Rx Instructions: As directed (DME) CPAP Full FACE MASK medium 14 cm H2O humidified AIR See Rx Instructions .Route .MEDSUPPLY Qty: 1 0RF Rx Instructions: As directed (DME) blood-glucose meter [FreeStyle Lite Meter] Kit See Rx Instructions .Route Qty: 1 0RF Rx Instructions: As directed (DME) FreeStyle Lite Strips Strip See Rx Instructions .Route Qty: 100 2RF Rx Instructions: Use 1 test strip once a day (DME) lancets [FreeStyle Lancets] 28 gauge misc See Rx Instructions .Route Qty: 100 1RF Rx Instructions: Use 1 lancet once a day (DME) pen needle, diabetic [1st Tier Unifine Pentips] 31 gauge x 5/16 needle See Rx Instructions .Route Qty: 100 3RF Rx Instructions: Use 1 pen needle once a day Discharge Orders: Discharge Order (Routine); Ordered 11/11/24 Ordered By: Amelie Tinoco Activity on Discharge: As tolerated Stand Alone Forms: Patient Portal Discharge page Print Language: Mauritanian Care Plan Goals: see below Health Concerns: tunde colitis Plan of Treatment: kidney function has returned to normal Complete course of antibiotics as prescribed Stay hydrated, slowly advance diet back to regular; stick with bland, low fat foods until appetite is back to normal Assessment: see discharge summary
--- NOTE | 2024-11-11 12:26 | MHC.CM.PN ---
Pt is medically cleared for discharge home self-care, pt has arranged his own transport home.
== END 2024-11-11 13:45 | disposition home or self-care (01) | DRG 249 ==
LOC: HO.ED 19:52 → HO.EDOVER 20:45 → HO.IMC 11-08 14:12
PROVIDERS: Registered Nurse Emergency; Admitting Provider Internal Medicine; Emergency Provider Emergency Medicine Emergency Medical Services; PCP Internal Medicine; Visit Provider Physician Assistant Medical
DX: K52.9 Noninfective gastroenteritis and colitis, unspecified (principal); N17.9 Acute kidney failure, unspecified; I95.9 Hypotension, unspecified; E11.9 Type 2 diabetes mellitus without complications; I10 Essential (primary) hypertension; G47.33 Obstructive sleep apnea (adult) (pediatric); E86.0 Dehydration; E78.00 Pure hypercholesterolemia, unspecified; Z20.822 Contact with and (suspected) exposure to COVID-19; Z79.84 Long term (current) use of oral hypoglycemic drugs; Z79.85 Long-term (current) use of injectable non-insulin antidiabetic drugs; Z79.899 Other long term (current) drug therapy
CPT/HCPCS: 0241U; 36415; 74176; 80048; 80053; 82947; 83605; 83735; 85025; 85027; 85610; 87040; 87147; 87205; 87493; 87507; 93005; 94660; 99285; J0696; J1171; J1644; J1836; J2405; J7120

== ENCOUNTER → 2024-11-07 14:22 | Outpatient (BNV) | payer OTHER, SELFPAY | PROVIDERS: Admitting Provider Internal Medicine; Emergency Provider Emergency Medicine Emergency Medical Services; PCP Internal Medicine; Visit Provider Internal Medicine Cardiovascular Disease | DX: R00.0 Tachycardia, unspecified (principal) | CPT/HCPCS: 93010 ==

== ENCOUNTER → 2024-11-07 20:27 | Outpatient (BNV) | payer OTHER, SELFPAY | PROVIDERS: Admitting Provider Internal Medicine; Emergency Provider Emergency Medicine Emergency Medical Services; PCP Internal Medicine; Visit Provider Internal Medicine | DX: N17.9 Acute kidney failure, unspecified (principal); K52.9 Noninfective gastroenteritis and colitis, unspecified | CPT/HCPCS: 99223; 99232 ==

== ENCOUNTER → 2024-11-07 20:27 | Outpatient (BNV) | payer OTHER, SELFPAY | PROVIDERS: Admitting Provider Internal Medicine; Emergency Provider Emergency Medicine Emergency Medical Services; PCP Internal Medicine; Visit Provider Surgery | DX: N28.9 Disorder of kidney and ureter, unspecified (principal) | CPT/HCPCS: 99222; 99232 ==

== ENCOUNTER 2024-12-03 07:43 | Outpatient (AMB) | payer OTHER, SELFPAY ==
--- NOTE | 2024-12-03 08:07 | MHC.PC.OV ---
Vital Signs 12/03/24 08:08 Height 5 ft 3 in Weight 232 lb BMI 41.1 BP 138/86 Blood Pressure Location Lt brachial Position Sitting Intake Visit Reasons: PE - see comments Intake Note: Patient here for a physical exam Postie Required: Yes Postie Language: Engineering Inspection Assistant Name: Jazzmine Johnson MD Information Interpreted: non-clinical & clinical Accompanied by: Self / Same As Patient Allergies seafood Allergy (Intermediate, Verified 12/03/24 08:15) Rash Medication List - Last Reconciled 12/03/24 by Jazzmine Johnson MD amlodipine 5 mg PO DAILY 90 days blood pressure monitor As directed blood sugar diagnostic (FreeStyle Lite Strips) Use 1 test strip once a day blood-glucose meter (FreeStyle Lite Meter kit) As directed cholecalciferol (vitamin D3) 25 mcg PO DAILY 90 days clonazepam 0.5 mg PO BID PRN [CPAP Full FACE MASK medium 14 cm H2O humidified AIR As directed] dulaglutide (Trulicity) 0.75 mg subcut MO lancets (FreeStyle Lancets) Use 1 lancet once a day losartan 25 mg PO DAILY 90 days metformin 1,000 mg (2 x 500 mg) PO BIDWMEAL 90 days omeprazole 20 mg PO DAILY oxycodone 5 mg PO BID PRN pen needle, diabetic (1st Tier Unifine Pentips) Use 1 pen needle once a day rosuvastatin 40 mg PO DAILY 90 days Tobacco use date assessed: 12/03/24 Dental Screening Dental Screen Date: 12/03/24 Did you have a dental visit in the last 12 months?: Yes Did you have a dental problem in the last 6 months where you did not have access to dental care?: No Was dental information given to patient?: Patient has dentist HPI HPI Comments History of Present Illness Details The patient is a 39-year-old male presenting for her physical exam. He previously experienced an episode of abdominal pain two weeks ago, which led to a hospital visit where a CT scan was performed. The initial suspicion was appendicitis; however, the surgical consultation ruled it out. The pain has since subsided. Additionally, the patient reports ongoing insomnia, which he attributes to ineffectiveness of his current psychiatric medications, including Clonazepam for anxiety. The lack of sleep has been persistent, affecting his daily life and prompting him to seek further medical evaluation. The patient has a history of gastroesophageal reflux disease, as diagnosed via endoscopy last year, which revealed esophagitis. There is no past surgical history and the patient denies tobacco use. He occasionally consumes alcohol and is allergic to seafood. He is currently using a CPAP machine for apnea management and is on multiple medications including Amlodipine, Vitamin D, Trulicity, Losartan, Omeprazole, and Rosuvastatin. Recent labs indicated mild anemia, necessitating repetition. He also has some hearing loss and will be referred to hearing test. Has diabetes mellitus type 2 without long-term current use of insulin with an A1c of 6.1% today. Complains of diffuse joint pain with no fever or rash and will be referred to rheumatology for this matter. He is asking for a refill on oxycodone and I advised him that oxycodone is not a long-term medication. He is morbidly obese with a BMI of 41.1 and was advised to diet and exercise to reach BMI goal less than 30. Tdap vaccine done 2015 and next 1 should be 2025. Flu vaccine will be done today. [facility] Medical History (Updated 12/03/24 @ 09:19 by Jazzmine Johnson MD) Morbid obesity Diabetes mellitus, with long-term current use of insulin Diarrhea Blood in stool Type 2 diabetes mellitus with hyperglycemia Urge urinary incontinence Bronchitis Essential hypertension Headache KUNAL (obstructive sleep apnea) Obesity (BMI 35.0-39.9 without comorbidity) Mixed hyperlipidemia Surgical History No pertinent past surgical history Family History Father Essential hypertension Mother No problems noted. Paternal Uncle Myocardial infarct Social History (Updated 12/03/24 @ 08:24 by Jazzmine Johnson MD) Household Members: Family Housing: Apartment Do you presently have visiting nurse or other home services: No Alcohol intake: current Alcohol intake frequency: holidays/special occasions only Alcohol type: beer and wine Patient Tobacco Use Status: Never used Tobacco e-Cigarette/Vaping Use: Never Used Second Hand Smoke Exposure: No Advance Directives Date on File: 12/06/23 service: No Current occupational status: employed Current occupational exposures/hazards: No Cognitive needs: No Hearing needs: No Vision needs: No Questionnaire PHQ-9 Over the last 2 weeks, how often have you been bothered by any of the following problems? 1. Little interest or pleasure in doing things: not at all 2. Feeling down, depressed, or hopeless: not at all 3. Trouble falling or staying asleep, or sleeping too much: not at all 4. Feeling tired or having little energy: not at all 5. Poor appetite or overeating: not at all 6. Feeling bad about yourself - or that you are a failure or have let yourself or your family down: not at all 7. Trouble concentrating on things, such as reading the newspaper or watching television: not at all 8. Moving or speaking so slowly that other people could have noticed. Or the opposite - being so fidgety or restless that you have been moving around a lot more than usual: not at all 9. Thoughts that you would be better off or of hurting yourself in some way: not at all Total score: 0 Depression Screening Interpretation: Negative Depression Screening Done: Yes 70245 - PHQ-9 Billing: Yes Source: Developed by Drs. Jaswant Aguayo, Latha eMrrill, Nadir Merlos and colleagues, with an educational yolanda from [employer]. Thrive Questionnaire Date Thrive assessed: 12/03/24 I am a: Patient What is your living situation today?: I have a steady place to live Within the past 12 months, did the food you bought not last and you didn't have the money to get more?: Never true Within the past 12 months, did you worry whether your food would run out before you got money to buy more?: Never true Do you have trouble paying for medicines?: No Do you have trouble getting transportation to medical appointments?: No Do you have trouble paying your heating and electricity bill?: No Do you have trouble taking care of your child, family member or friend?: No Do you have trouble with day-to-day activities such as bathing, preparing meals, shopping, managing finances, etc.?: No Are you currently unemployed and looking for a job?: No Are you interested in more education?: No Please select the resources that you would like help with: None Currently or been in a relationship where the following occur: No concerns reported THRIVE Score: 0 AUDIT C Alcohol Use Questionnaire (AUDIT-C) 1. How often do you have a drink containing alcohol?: Monthly or less 2. How many drinks containing alcohol do you have on a typical day when you are drinking?: 1 or 2 3. How often do you have six or more drinks on one occasion?: Never Total Score: 1 Score Reviewed/Action Taken: No STAR-7 AMB Questionnaire STAR-7 Date STAR - 7 assessed: 12/03/24 Feeling nervous, anxious, or on edge: 1 = Several days Not being able to stop or control worryin = Not at all Worrying too much about different things: 1 = Several days Trouble relaxin = Several days Being so restless that it is hard to sit still: 0 = Not at all Becoming easily annoyed or irritable: 0 = Not at all Feeling afraid as if something awful might happen: 0 = Not at all Total STAR-7 score (0-4 normal; 5-9 mild; 10-14 moderate; 15-21 severe): 3 Source: Developed by Drs. Jaswant Aguayo, Latha Merrill, Nadir Merlos and colleagues, with an educational yolanda from [employer]. STAR-7 Assessment Billing STAR-7 Assessment Tool: STAR-7 Assessment 89098 Review of Systems Const All systems reviewed & are unremarkable except as noted in HPI and below ENT Reports hearing loss Card Denies chest pain at rest, Denies chest pain with activity, Denies edema, Denies irregular heart rhythm, Denies claudication, Denies dyspnea, Denies dyspnea on exertion, Denies orthopnea, Denies paroxysmal nocturnal dyspnea and Denies slow heart rate Resp Denies cough, Denies dyspnea and Denies dyspnea on exertion GI Reports abdominal pain, Denies change in bowel habits, Denies excessive flatus, Denies nausea and Denies vomiting Neuro Denies behavioral changes, Denies confusion and Denies lack of coordination Psych Denies behavioral changes and Denies confusion Physical exam (Primary Care) Vital Signs: Last Vital Signs BP 138/86 12/03/24 08:08 BMI result Body Mass Index 41.1 BMI Assessment/Plan discussion: High BMI High, discussed plan: lifestyle, weight reduction, dietary and physical activity Tobacco/Smoking Status: Tobacco use Status Tobacco use date assessed 12/03/24 12/03/24 08:12 Patient Tobacco Use Status Never used Tobacco 12/03/24 08:12 e-Cigarette/Vaping Use Never Used 12/03/24 08:12 PHQ-9: PHQ-9 Score PHQ-9: Total score 0 12/03/24 08:12 Depression Screening Interpretation: Negative Thrive Assessment: Date of Thrive Assessment Date Thrive assessed 12/03/24 12/03/24 08:12 Currently or been in a relationship where the following occur: No concerns reported Const General: No confusion Orientation/consciousness: patient oriented x3 and No confusion HENMT Head: Yes normal to inspection, Yes normocephalic and Yes atraumatic Ears: external ears normal General nose exam: Normal external nose present and No nasal discharge present Face and sinus: Yes sinuses nontender Mouth: lip normal Eyes General: appearance normal, both eyes and all related structures Eyelids: Yes eyelids normal Conjunctivae: conjunctivae normal Neck Neck: Yes normal visual inspection and Yes supple Resp Effort & Inspection: normal respiratory effort Auscultation: clear to auscultation bilaterally Cardio Jugular venous distension: no JVD Rate: regular rate Rhythm: regular rhythm Heart sounds: S1 normal heart sound present and S2 normal heart sound present GI Inspection: Yes normal to inspection and Yes obesity Palpation (GI): Soft to palpation and Tenderness to palpation present (GI) in the epigastrum, in the LLQ, in the RLQ, in the LUQ, in the RUQ and periumbilically Auscultation: normal bowel sounds Skin General skin exam: no rashes or lesions noted Neuro General: patient oriented x3, no focal motor deficits and No confusion Extrem General: Yes full ROM Psych Appearance: grossly normal Office Procedures Flu Questionnaire Does the patient have a severe egg allergy?: No Does the patient have severe life threatening allergies?: No Does the patient have a fever or illness today?: No Has the patient ever had Guillain-Biggs Syndrome?: No Has the patient ever had any past reaction to a flu shot?: No Results AMB Hemoglobin A1c AMB Hemoglobin A1c 6.1 % Last Edit by TODD Cm on 12/03/24 08:36 Immunizations Fluarix Triv [id number] (PF) 45 mcg (15 mcg x 3)/0.5 mL IM syringe Performing Provider: Jazzmine Johnson MD [place] [facility] [place] [facility] Administered by: TODD Cm on 12/03/24 08:34 Dose Route Admin Location Dispensed Lot Number Expiration Date NDC [employer] 0.5 mL IM Left Deltoid 0.5 mL [id number] 04/15/25 [id number] [employer] VIS Given Date VIS Provided VIS Publication Date 12/03/24 Single Vaccine 21 Eligibility Eligibility Date Funding Source Not [facility] Eligible 12/03/24 Private Coding Level of Care Code Est Pt Level 4 (26104) Est Pt Prev Care 18-39y(65076) Diagnoses Physical exam Z00.00 Polyarthralgia M25.50 Generalized abdominal pain R10.84 Bilateral hearing loss, unspecified hearing loss type H91.93 Hearing loss type: unspecified Laterality: bilateral Gastroesophageal reflux disease with esophagitis without hemorrhage K21.00 Esophagitis bleeding: without hemorrhage Major depressive disorder, recurrent episode, moderate with mood-congruent psychotic features F33.3 KUNAL (obstructive sleep apnea) G47.33 Type 2 diabetes mellitus without complication, without long-term current use of insulin E11.9 Diabetes mellitus type: type 2 Normochromic anemia D64.9 Morbid obesity E66.01 Additional Codes PHQ-9 - 12001 - PHQ-9 Billing: Yes ([id number]) STAR-7 Assessment Billing - STAR-7 Assessment Tool: STAR-7 Assessment 49778 ([id number]) Time Spent (min) 38 Assessment & Plan Assessment & Plan (1) Physical exam: Code(s): Z00.00 - Encounter for general adult medical examination without abnormal findings Category: Medical (2) Polyarthralgia: Code(s): M25.50 - Pain in unspecified joint Category: Medical (3) Generalized abdominal pain: Code(s): R10.84 - Generalized abdominal pain Category: Medical (4) Hearing loss: Code(s): H91.90 - Unspecified hearing loss, unspecified ear Category: Medical Qualifiers: Hearing loss type: unspecified Laterality: bilateral Qualified Code(s): H91.93 - Unspecified hearing loss, bilateral (5) GERD with esophagitis: Code(s): K21.00 - Gastro-esophageal reflux disease with esophagitis, without bleeding Category: Medical Qualifiers: Esophagitis bleeding: without hemorrhage Qualified Code(s): K21.00 - Gastro-esophageal reflux disease with esophagitis, without bleeding (6) Major depressive disorder, recurrent episode, moderate with mood-congruent psychotic features: Code(s): F33.3 - Major depressive disorder, recurrent, severe with psychotic symptoms Category: Medical (7) KUNAL (obstructive sleep apnea): Comment: CPAP use sleep study test August 2014 Code(s): G47.33 - Obstructive sleep apnea (adult) (pediatric) Category: Medical (8) Diabetes mellitus without complication, without long-term current use of insulin: Code(s): E11.9 - Type 2 diabetes mellitus without complications Category: Medical Qualifiers: Diabetes mellitus type: type 2 Qualified Code(s): E11.9 - Type 2 diabetes mellitus without complications (9) Normochromic anemia: Code(s): D64.9 - Anemia, unspecified Category: Medical (10) Morbid obesity: Code(s): E66.01 - Morbid (severe) obesity due to excess calories Category: Medical Plan - Referral to rheumatology to evaluate cause of body pain. - Consider medication adjustment for insomnia; to be coordinated with psychiatric care. - Re-evaluation of hemoglobin levels in 4 months. - Address abdominal pain with gastroenterology follow-up. - Reiterate use of CPAP to manage apnea. - Continue current regimen of medications, including Amlodipine, Vitamin D, Clonazepam, Losartan, Omeprazole, and Rosuvastatin. - Advise repeat endoscopy if gastroesophageal symptoms persist or worsen. Patient was informed and verbally consented to the use of an ambient scribe for clinic note documentation during this visit. I discussed abdominal pain likely being linked to gastritis or other gastrointestinal conditions, and recommended a consultation with gastroenterology for further evaluation. Regarding insomnia and anxiety, I advised the patient to discuss with their psychiatrist about possible adjustments to current medications such as Clonazepam, especially considering their report of ineffectiveness. I emphasized that medications such as Oxicodone, suggested by the patient, are not intended for long-term use for insomnia or anxiety. Instead, reassessment by psychiatry is suggested. We discussed the management of body pain with an appointment to rheumatology, given the absence of clear surgical issues. I encouraged the use of CPAP consistently to manage apnea. We also agreed on repeat labs in 4 months to re-evaluate his anemia and other routine health parameters. 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
[2024-12-03 08:08] VITALS: BP 138/86; BMI 41.1
== END 2024-12-03 08:34 | disposition home or self-care (01) ==
PROVIDERS: PCP Internal Medicine; Visit Provider Internal Medicine
DX: Z00.00 Encounter for general adult medical examination without abnormal findings (principal); F33.3 Major depressive disorder, recurrent, severe with psychotic symptoms; E66.01 Morbid (severe) obesity due to excess calories; Z68.41 Body mass index [BMI] 40.0-44.9, adult; Z79.4 Long term (current) use of insulin; E11.9 Type 2 diabetes mellitus without complications; M25.50 Pain in unspecified joint; R10.84 Generalized abdominal pain; H91.93 Unspecified hearing loss, bilateral; K21.00 Gastro-esophageal reflux disease with esophagitis, without bleeding; G47.33 Obstructive sleep apnea (adult) (pediatric); Z23 Encounter for immunization

== ENCOUNTER → 2024-12-03 07:43 | Outpatient (BNVA) | payer OTHER, SELFPAY | PROVIDERS: PCP Internal Medicine; Visit Provider Internal Medicine | DX: Z00.00 Encounter for general adult medical examination without abnormal findings (principal); Z23 Encounter for immunization; M25.50 Pain in unspecified joint; R10.84 Generalized abdominal pain; H91.93 Unspecified hearing loss, bilateral; K21.00 Gastro-esophageal reflux disease with esophagitis, without bleeding; F33.3 Major depressive disorder, recurrent, severe with psychotic symptoms; G47.33 Obstructive sleep apnea (adult) (pediatric); E11.9 Type 2 diabetes mellitus without complications; D64.9 Anemia, unspecified; E66.01 Morbid (severe) obesity due to excess calories | CPT/HCPCS: 83036; 90471; 90656; 96127; 99212; 99395 ==

== ENCOUNTER 2025-01-01 15:28 | Outpatient (AMB) | payer OTHER, SELFPAY ==
[2025-01-01 15:33] VITALS: BP 140/90; BMI 40.9
--- NOTE | 2025-01-01 15:33 | A.OFFPC_ITS ---
Vital Signs 01/01/25 15:33 Height 5 ft 3 in Weight 231 lb BMI 40.9 BP 140/90 H Blood Pressure Location Lt brachial Position Sitting Intake Visit Reasons: Follow up Intake Note: Patient here for a follow up Inspector Final Assembly Mechanical Required: No Accompanied by: Self / Same As Patient Allergies seafood Allergy (Intermediate, Verified 01/01/25 15:55) Rash Medication List - Last Reconciled 01/01/25 by Jazzmine Johnson MD amlodipine 5 mg PO DAILY 90 days blood pressure monitor As directed blood sugar diagnostic (FreeStyle Lite Strips) Use 1 test strip once a day blood-glucose meter (FreeStyle Lite Meter kit) As directed cholecalciferol (vitamin D3) 25 mcg PO DAILY 90 days clonazepam 0.5 mg PO BID PRN [CPAP Full FACE MASK medium 14 cm H2O humidified AIR As directed] dulaglutide (Trulicity) 0.75 mg subcut MO lancets (FreeStyle Lancets) Use 1 lancet once a day losartan 25 mg PO DAILY 90 days meloxicam 15 mg PO DAILY 30 days metformin 1,000 mg (2 x 500 mg) PO BIDWMEAL 90 days omeprazole 20 mg PO DAILY oxycodone 5 mg PO BID PRN pen needle, diabetic (1st Tier Unifine Pentips) Use 1 pen needle once a day rosuvastatin 40 mg PO DAILY 90 days Tobacco use date assessed: 12/03/24 Dental Screening Dental Screen Date: 12/03/24 HPI HPI Comments History of Present Illness Details The patient is a 39-year-old male presenting with a need to review chronic conditions including type 2 diabetes, hypertension, hyperlipidemia, and other health concerns. His type 2 diabetes mellitus is currently well-controlled with a Hemoglobin A1c of 6.1, recorded one month ago. Regarding essential hypertension, his blood pressure readings border at 140/90, indicating ongoing management efforts are necessary. Hyperlipidemia management has been addressed but with a noted absence of recent laboratory testing. He also has morbid obesity with a BMI of 40, impacting weight management efforts and future health risks. The patient mentioned developing a minor rash and a small wart of unspecified etiology. Medical intervention was suggested for potential fungal causes. A procedural episode involving blood was recounted but requires clarification and potentially, gastroenterological assessment. [facility] Medical History (Updated 01/01/25 @ 16:06 by Jazzmine Johnson MD) Morbid obesity Diabetes mellitus, with long-term current use of insulin Diarrhea Blood in stool Type 2 diabetes mellitus with hyperglycemia Urge urinary incontinence Bronchitis Essential hypertension Headache KUNAL (obstructive sleep apnea) Obesity (BMI 35.0-39.9 without comorbidity) Mixed hyperlipidemia Surgical History No pertinent past surgical history Family History Father Essential hypertension Mother No problems noted. Paternal Uncle Myocardial infarct Social History Household Members: Family Housing: Apartment Do you presently have visiting nurse or other home services: No Alcohol intake: current Alcohol intake frequency: holidays/special occasions only Alcohol type: beer and wine Patient Tobacco Use Status: Never used Tobacco e-Cigarette/Vaping Use: Never Used Second Hand Smoke Exposure: No Advance Directives Date on File: 12/06/23 service: No Current occupational status: employed Current occupational exposures/hazards: No Cognitive needs: No Hearing needs: No Vision needs: No Questionnaire Thrive Questionnaire Date Thrive assessed: 12/03/24 STAR-7 AMB Questionnaire STAR-7 Date STAR - 7 assessed: 12/03/24 Source: Developed by Drs. Jaswant Aguayo, Latha Merrill, Nadir Merlos and colleagues, with an educational yolanda from [employer]. Review of Systems Const All systems reviewed & are unremarkable except as noted in HPI and below Card Denies chest pain at rest, Denies chest pain with activity, Denies edema, Denies irregular heart rhythm, Denies claudication, Denies dyspnea, Denies dyspnea on exertion, Denies orthopnea, Denies paroxysmal nocturnal dyspnea and Denies slow heart rate Resp Denies cough, Denies dyspnea and Denies dyspnea on exertion GI Denies abdominal pain, Reports hematochezia, Denies change in bowel habits, Denies excessive flatus, Denies nausea and Denies vomiting Physical exam (Primary Care) Vital Signs: Last Vital Signs BP 140/90 H 01/01/25 15:33 BMI result Body Mass Index 40.9 BMI Assessment/Plan discussion: High BMI High, discussed plan: lifestyle, weight reduction, dietary and physical activity Tobacco/Smoking Status: Tobacco use Status Tobacco use date assessed 12/03/24 01/01/25 15:39 Patient Tobacco Use Status Never used Tobacco 01/01/25 15:39 e-Cigarette/Vaping Use Never Used 01/01/25 15:39 Thrive Assessment: Date of Thrive Assessment Date Thrive assessed 12/03/24 01/01/25 15:39 Resp Effort & Inspection: normal respiratory effort Auscultation: clear to auscultation bilaterally Cardio Jugular venous distension: no JVD Rate: regular rate Rhythm: regular rhythm Heart sounds: S1 normal heart sound present and S2 normal heart sound present Extrem General: Yes full ROM Coding Level of Care Code Est Pt Level 4 (79425) Complex EM visit Add On G2211 Diagnoses Type 2 diabetes mellitus without complication, without long-term current use of insulin E11.9 Diabetes mellitus type: type 2 Morbid obesity E66.01 Bloody stools K92.1 Major depressive disorder, recurrent episode, moderate with mood-congruent psychotic features F33.3 STAR (generalized anxiety disorder) F41.1 Essential hypertension I10 Time Spent (min) 22 Assessment & Plan Assessment & Plan (1) Diabetes mellitus without complication, without long-term current use of insulin: Code(s): E11.9 - Type 2 diabetes mellitus without complications Category: Medical Qualifiers: Diabetes mellitus type: type 2 Qualified Code(s): E11.9 - Type 2 diabetes mellitus without complications (2) Morbid obesity: Code(s): E66.01 - Morbid (severe) obesity due to excess calories Category: Medical (3) Bloody stools: Code(s): K92.1 - Melena Category: Medical (4) Major depressive disorder, recurrent episode, moderate with mood-congruent psychotic features: Code(s): F33.3 - Major depressive disorder, recurrent, severe with psychotic symptoms Category: Medical (5) STAR (generalized anxiety disorder): Code(s): F41.1 - Generalized anxiety disorder Category: Medical (6) Essential hypertension: Code(s): I10 - Essential (primary) hypertension Category: Medical Plan Essential hypertension management will continue with Losartan 25 mg and Amlodipine 5 mg, with an emphasis on lowering blood pressure levels. Hyperlipidemia treatment remains Rosuvastatin 40 mg, with a necessity for updated laboratory work. Obesity's impact on overall health was noted, with encouragement towards weight management strategies. Obstructive Sleep Apnea remains managed through CPAP usage. For the minor rash, a topical antifungal cream was recommended. Future evaluation to rule out significant gastrointestinal concerns was advised. Follow-up laboratory testing for cholesterol is indicated, suggesting fasting arrangements until March.: Patient was informed and verbally consented to the use of an ambient scribe for clinic note documentation during this visit. I discussed with the patient the current control of his type 2 diabetes, emphasizing the positive outcome with a Hemoglobin A1c of 6.1. We talked about the critical importance of blood pressure management, particularly to lower it from its current edge of 140/90. The patient was informed of the need for recent lab tests, particularly fasting labs related to hyperlipidemia, scheduled prior to March. For the temporary rash and wart, a topical antifungal was prescribed, and a traveling passenger agent referral was suggested due to unclear skin puncture concerns and potential hematochezia incidents. All medications were reviewed with a focus on adherence and potential side effects, emphasizing the significance of the CPAP in managing sleep apnea. Consent and understanding of the potential risks and benefits of these management plans were confirmed. Orders: Orders Lipid Panel Today E78.5 - Hyperlipidemia, unspecified Comprehensive Evangeline. Panel Fast Today E11.9 - Type 2 diabetes mellitus without complications Vitamin B12 and Folate Today E53.8 - Deficiency of other specified B group vitamins Complete Blood Count Auto Diff Today D64.9 - Anemia, unspecified Microalbumin, Random (w Creat) Today R80.9 - Proteinuria, unspecified Vitamin D 25-OH Total Today E55.9 - Vitamin D deficiency, unspecified IRON PROFILE Today D64.9 - Anemia, unspecified Referrals Gastroenterology Referral K92.1 - Melena Medications: New clotrimazole-betamethasone 1-0.05 % 1 appl topical BID PRN 45 grams 1RF rash 30 days Patient Instructions: - Continue taking Trulicity, Metformin, Losartan, Amlodipine, and Rosuvastatin as prescribed. - Use the CPAP machine consistently for sleep apnea management. - Apply the provided topical antifungal cream as directed. - Schedule and attend your upcoming gastroenterology appointment. - Arrange for fasting laboratory tests before March for cholesterol evaluation. - Monitor blood pressure regularly and maintain a follow-up schedule. - Maintain or initiate weight management strategies as discussed. - Seek medical attention if experiencing unusual symptoms or concerns.
== END 2025-01-01 16:04 | disposition home or self-care (01) ==
LOC: HO.HMCH 15:29
PROVIDERS: PCP Internal Medicine; Visit Provider Internal Medicine
DX: E11.9 Type 2 diabetes mellitus without complications (principal); E66.01 Morbid (severe) obesity due to excess calories; F33.3 Major depressive disorder, recurrent, severe with psychotic symptoms; Z68.41 Body mass index [BMI] 40.0-44.9, adult; K92.1 Melena; F41.1 Generalized anxiety disorder; I10 Essential (primary) hypertension

== ENCOUNTER → 2025-01-01 15:28 | Outpatient (BNVA) | payer OTHER, SELFPAY | PROVIDERS: PCP Internal Medicine; Visit Provider Internal Medicine | DX: E11.9 Type 2 diabetes mellitus without complications (principal); E66.01 Morbid (severe) obesity due to excess calories; K92.1 Melena; F33.3 Major depressive disorder, recurrent, severe with psychotic symptoms; F41.1 Generalized anxiety disorder; I10 Essential (primary) hypertension | CPT/HCPCS: 99212 ==

== ENCOUNTER 2025-02-11 09:55 | Outpatient (AMB) | payer OTHER, SELFPAY ==
--- NOTE | 2025-02-11 10:18 | A.OFFVIS_ITS ---
Vital Signs 02/11/25 10:23 02/11/25 10:24 Height 5 ft 3 in Weight 218 lb 4.122 oz BMI 38.7 BP 168/111 H 151/105 H Blood Pressure Location Lt brachial Lt brachial Position Sitting Sitting Intake Visit Reasons: Generalized Abdominal Pains Intake Note: Yang presents in the office as a follow up for abdominal pains. CC: HE states that he is having stomach pains but denies all other GI concerns. Connie Scratcher Required: Yes Allergies seafood Allergy (Intermediate, Verified 02/11/25 10:21) Rash HPI Comments Details: This is a 38y.o M with PMH of obesity, KUNAL who was seen in 2023 for question of GIB presenting for follow up. 03/29/23: Pt reports that around 2 months ago he was experiencing severe R sided abd pain assoc vomiting with blood in it and black stool. Says that initially vomiting was clear and then turned black coffee grounds on the second emesis. Was seen in ER for the same but at that time was discharged to home due to no clinically significant findings on assesment. Since then he has had 3 more instances. Appetite is okay. No weight loss. Drinks etOH almost 16-20 drinks over the weekend. Does not smoke. No NSAID use. He is worried as his mother had liver disease and also had episode of vomiting blood. 01/24/24: * Grade a esophagitis * Irregular Z-line * Hiatal hernia * Subepithelial antral nodule * Peptic duodenitis Path: A. Duodenum, biopsy: Duodenal mucosa within normal limits. B. Stomach, antral nodule, biopsy: Antral-type and oxyntic mucosa with mild chronic inactive inflammation and surface hyperplastic changes; no Helicobacter organisms seen. C. GE junction, biopsy: - Active esophagitis (maximum eosinophil count 4 per high powered field). - No glandular epithelium present 02/11/25: Here for follow up for new issue. Reports intermittent rectal bleeding after defecation. Stool itself is brown but notices blood on wiping. Sometimes has a small streak straining his underwear. Defecation is painful even when stool is soft and hes not constipated. [facility] Medical History Morbid obesity Diabetes mellitus, with long-term current use of insulin Diarrhea Blood in stool Type 2 diabetes mellitus with hyperglycemia Urge urinary incontinence Bronchitis Essential hypertension Headache KUNAL (obstructive sleep apnea) Obesity (BMI 35.0-39.9 without comorbidity) Mixed hyperlipidemia Surgical History No pertinent past surgical history Family History Father Essential hypertension Mother No problems noted. Paternal Uncle Myocardial infarct Social History Household Members: Family Housing: Apartment Do you presently have visiting nurse or other home services: No Alcohol intake: current Alcohol intake frequency: holidays/special occasions only Alcohol type: beer and wine Patient Tobacco Use Status: Never used Tobacco e-Cigarette/Vaping Use: Never Used Second Hand Smoke Exposure: No Advance Directives Date on File: 12/06/23 service: No Current occupational status: employed Current occupational exposures/hazards: No Cognitive needs: No Hearing needs: No Vision needs: No Review of Systems Const All systems reviewed & are unremarkable except as noted in HPI and below Physical Exam Vital Signs: Last Vital Signs BP 151/105 H 02/11/25 10:24 BMI result Body Mass Index 38.7 No apparent distress Nonicteric Abdomen soft, nondistended Rectal: (So Valdivia MA present as sales support consultant) No external hemorrhoids. Painful FAHAD so exam promptly terminated, was able to palpate internal hemorrhoids. No blood on gloved finger. Alert and oriented x3, normal gait Assessment & Plan Assessment & Plan (1) Rectal bleeding: Code(s): K62.5 - Hemorrhage of anus and rectum Category: Medical (2) Internal hemorrhoids: Code(s): K64.8 - Other hemorrhoids Category: Medical (3) Anal fissure: Code(s): K60.2 - Anal fissure, unspecified Category: Medical Plan rectal bleeding likely secondary to bleeding internal hemorrhoids versus anal fissure. Risk factors include obesity, lifting heavy weights for work, spending prolonged time on the toilet bowl. Plan: -add fiber -avoid constipation and straining, can take MiraLax as needed -adequate hydration -elevate legs while having a bowel movement -combination lidocaine and hydrocortisone cream once daily at bedtime x 4 weeks -CBC and iron studies to r/o worsening anemia -follow-up in 6-8 weeks to review indication for flexible sigmoidoscopy if symptoms still persistent Orders: Orders Complete Blood Count no Diff Today K92.1 - Melena IRON PROFILE Today K92.1 - Melena Ferritin Today K92.1 - Melena Medications: New lidocaine HCl-hydrocortison ac 3-0.5 % apply daily at bedtime for 14 days 1 appl topical BEDTIME 28.3 grams 0RF 14 days polyethylene glycol 3350 (Miralax) 17 grams PO DAILY 238 grams 0RF psyllium husk 5 grams PO DAILY 450 grams 0RF 90 days Coding Level of Care Code Est Pt Level 4 (84581) Diagnoses Rectal bleeding K62.5 Internal hemorrhoids K64.8 Anal fissure K60.2
[2025-02-11 10:23] VITALS: BP 168/111; BMI 38.7
[2025-02-11 10:24] VITALS: BP 151/105
--- OUTSIDE RECORDS SUMMARY | 2025-02-11 11:22 | XMS_ITS | Clinical Summary ---
Author Organization [facility] ity Address [address] [place] [address] Care Team Providers Care Wirer Name Role Phone Unavailable Primary Care Provider Unavailabl e Social History Tobacco Use Types Packs/Day Years Used Date Smoking Tobacco: Never Assessed Sex and Gender Information Value Date Recorded Sex Assigned at Not on file Legal Sex Male 9:12 AM EST Gender Identity Not on file Sexual Orientation Not on file Plan of Treatment Health Maintenance Due Date Last Done Comments DTaP,Tdap,and Td Vaccines (1 - Tdap) 2005 Hepatitis B Vaccines (1 of 3 - 19+ 3-dose series) 2005 COVID-19 Vaccine (2023-2 5 season) 2024 Influenza Vaccine (Season Ended) 2025 HIB Vaccines Aged Out No longer eligi ble based on patient's age to complete this topic HPV Vaccines Aged Out No longer eligi ble based on patient's age to complete this topic Hepatitis A Vaccines Aged Out No long er eligible based on patient's age to complete this topic IPV Vaccines Aged Out No longer eligi ble based on patient's age to complete this topic MMR Vaccines Aged Out No longer eligi ble based on patient's age to complete this topic Meningococcal ACWY Vaccine Aged Out N o longer eligible based on patient's age to complete this topic Meningococcal B Vaccine Aged Out No l onger eligible based on patient's age to complete this topic Pneumococcal Vaccine: Pediat rics (0 to 5 Years) and At-Risk Patients (6 to 64 Years) Aged Out No longer eligible b ased on patient's age to complete this topic RSV Immunization Patients Un magaly 20 months Aged Out No longer eligible b ased on patient's age to complete this topic Varicella Vaccines Aged Out No longer eligible based on patient's age to complete this topic
== END 2025-02-11 10:54 | disposition home or self-care (01) ==
LOC: HO.HGI 09:55
PROVIDERS: PCP Internal Medicine; Visit Provider Internal Medicine
DX: K62.5 Hemorrhage of anus and rectum (principal); K64.8 Other hemorrhoids; K60.2 Anal fissure, unspecified
CPT/HCPCS: 99214

== ENCOUNTER 2025-02-11 09:55 | Outpatient (REF) | payer OTHER, SELFPAY ==
[2025-02-11 12:15] LABS: Iron 83 mcg/dL (45-160); Percent Iron Saturation 37 % (15-50); Total Iron Binding Capacity 224 mcg/dL (228-428); Unsaturated Iron Binding 141 ug/dL
[2025-02-11 12:19] LABS: Hematocrit 46.4 % (42.0-52.0); Hemoglobin 15.5 g/dl (14.0-18.0); Mean Corpuscular HGB Conc 33.4 g/dl (31.0-36.0); Mean Corpuscular Hemoglobin 30.4 pg (27.0-33.0); Mean Platelet Volume 9.9 fL (9.4-12.4); Platelet Count 229 X10*3/uL (160-400); Red Cell Distribution Width 13.1 % (11.0-16.0); White Blood Count 8.3 X10*3/uL (4.8-10.8)
[2025-02-11 12:39] LABS: Ferritin 243 ng/mL (20-250)
--- OUTSIDE RECORDS SUMMARY | 2025-02-11 13:23 | XMS_ITS | Clinical Summary ---
Author Organization [facility] ity Address [address] [place] [address] Care Team Providers Care Lead Java Programmer Name Role Phone Unavailable Primary Care Provider [...]
== END 2025-02-11 09:56 | disposition home or self-care (01) ==
LOC: HO.LAB 09:55
PROVIDERS: PCP Internal Medicine; Visit Provider Internal Medicine
DX: K92.1 Melena (principal); K64.8 Other hemorrhoids; K60.2 Anal fissure, unspecified
CPT/HCPCS: 36415; 82728; 83540; 85027; 99212